=== PATIENT | female | born 1970 | race Caucasian/White ===

== ENCOUNTER → 2017-05-18 13:18 | Outpatient (CLI) | payer BC, OTHER, SELFPAY | PROVIDERS: Family Provider Preventive Medicine Occupational Medicine; PCP Preventive Medicine Occupational Medicine; Visit Provider Internal Medicine Gastroenterology | DX: Z45.2 Encounter for adjustment and management of vascular access device (principal) | CPT/HCPCS: 96523 ==

== ENCOUNTER → 2017-07-29 12:57 | Outpatient (CLI) | payer BC, OTHER, SELFPAY | PROVIDERS: Family Provider Preventive Medicine Occupational Medicine; PCP Preventive Medicine Occupational Medicine; Visit Provider Internal Medicine Gastroenterology | DX: Z45.2 Encounter for adjustment and management of vascular access device (principal) | CPT/HCPCS: 96523 ==

== ENCOUNTER → 2017-12-07 08:18 | Outpatient (CLI) | payer BC, OTHER, SELFPAY | PROVIDERS: Family Provider Preventive Medicine Occupational Medicine; PCP Preventive Medicine Occupational Medicine; Referring Provider Internal Medicine Gastroenterology; Visit Provider Internal Medicine Gastroenterology | DX: Z45.2 Encounter for adjustment and management of vascular access device (principal) | CPT/HCPCS: 96523; A4216 ==

== ENCOUNTER → 2018-01-18 16:09 | Outpatient (CLI) | payer BC, SELFPAY | PROVIDERS: Family Provider Preventive Medicine Occupational Medicine; PCP Preventive Medicine Occupational Medicine; Referring Provider Internal Medicine Gastroenterology; Visit Provider Internal Medicine Gastroenterology | DX: Z45.2 Encounter for adjustment and management of vascular access device (principal) | CPT/HCPCS: 96523; A4216 ==

== ENCOUNTER → 2018-05-21 15:05 | Outpatient (CLI) | payer BC, SELFPAY | PROVIDERS: Family Provider Preventive Medicine Occupational Medicine; PCP Preventive Medicine Occupational Medicine; Visit Provider Internal Medicine Gastroenterology | DX: Z45.2 Encounter for adjustment and management of vascular access device (principal) | CPT/HCPCS: 96523 ==

== ENCOUNTER → 2018-07-15 16:04 | Outpatient (CLI) | payer BC, SELFPAY ==
[2018-07-15 16:35] LABS: Hematocrit 37.5 % (37-47); Hemoglobin 12.3 g/dl (12.0-15.0); Mean Corp Hgb Conc 32.8 g/gl (32-36); Mean Corpuscular Volume 85.4 fL (81-99); Platelet Count 303 K/mm3 (150-450); RBC Distribution Width CV 12.9 % (11.6-14.6); RBC Distribution Width SD 40.8 fl (35.1-43.9); Red Blood Count 4.39 M/mm3 (4.2-5.4); Scan Indicated on CBC? Y/N NO; White Blood Count 14.3 K/mm3 (4.4-11.0)
[2018-07-15 16:37] LABS: Erythrocyte Sedimentation Rate 28 mm/hr (0-20)
[2018-07-15 16:58] LABS: ALB/GLOB Ratio 0.8 RATIO (0.9-2.4); AST(SGOT) 11 U/L (15-37); Alanine Aminotransfer ALT/SGPT 18 U/L (13-56); Albumin, Serum 3.4 g/dL (3.2-5.0); Alkaline Phosphatase 129 U/L (45-117); Anion Gap 5 (5-15); BUN 17 mg/dL (7-18); BUN/Creat Ratio 17.5 RATIO (10-20); Calcium,Total 8.6 mg/dL (8.5-10.1); Chloride 104 mmol/L (98-107); Creatinine, Serum 0.97 mg/dL (0.55-1.02); EST Glomerular Filtration Rate 65 mL/min (>60); Est Glom Filt Rate - Afr Amer 79 mL/min (>60); Glucose 129 mg/dL (74-106); Potassium 3.9 mmol/L (3.5-5.1); Protein, Total 7.4 g/dL (6.4-8.2); Sodium Level 139 mmol/L (136-145)
== END ==
PROVIDERS: Family Provider Preventive Medicine Occupational Medicine; PCP Preventive Medicine Occupational Medicine; Referring Provider Internal Medicine Gastroenterology; Visit Provider Internal Medicine Gastroenterology
DX: K51.90 Ulcerative colitis, unspecified, without complications (principal)
CPT/HCPCS: 36591; 80053; 85027; 85652; 86140; A4216

== ENCOUNTER 2018-07-26 10:30 | Outpatient (RCR) | payer BC, SELFPAY | END 2018-08-06 23:59 | LOC: NS 10:30 | PROVIDERS: Family Provider Preventive Medicine Occupational Medicine; PCP Preventive Medicine Occupational Medicine; Visit Provider Preventive Medicine Occupational Medicine | DX: Z68.31 Body mass index [BMI] 31.0-31.9, adult (principal); E66.9 Obesity, unspecified; Z71.3 Dietary counseling and surveillance | CPT/HCPCS: 97802; 97803 ==

== ENCOUNTER 2018-08-23 10:43 | Outpatient (RCR) | payer BC, SELFPAY | END 2018-09-05 23:59 | LOC: NS 10:43 | PROVIDERS: Family Provider Preventive Medicine Occupational Medicine; PCP Preventive Medicine Occupational Medicine; Visit Provider Preventive Medicine Occupational Medicine | DX: Z68.31 Body mass index [BMI] 31.0-31.9, adult (principal); E66.9 Obesity, unspecified; Z71.3 Dietary counseling and surveillance | CPT/HCPCS: 97803 ==

== ENCOUNTER → 2018-08-24 12:57 | Outpatient (CLI) | payer BC, SELFPAY ==
[2018-08-24 13:26] LABS: Erythrocyte Sedimentation Rate 29 mm/hr (0-20)
[2018-08-24 13:35] LABS: Absolute Lymphocyte Count 3.11 X10^3/ul (0.83-4.51); Absolute Neutrophil Count 5.7 X10^3/uL (2.0-7.7); Basophil# 0.05 X10^3/uL; Basophil% 0.4 % (0-1); Eosinophil# 0.67 X10^3/uL; Hematocrit 39.6 % (37-47); Hemoglobin 12.9 g/dl (12.0-15.0); Lymphocyte # 3.11 X10^3/ul (4.0); Lymphocyte % 27.9 % (19-41); Mean Corp Hgb Conc 32.6 g/gl (32-36); Mean Corpuscular Hgb 27.3 pg (27.0-32.0); Mean Corpuscular Volume 83.7 fL (81-99); Mean Platelet Vol. 9.6 fl (6.2-12.0); Monocyte# 1.53 X10^3/uL; Monocyte% 13.7 % (0-10); Neutrophil # 5.71 X10^3/uL (2.7-7.7); Neutrophil % 51.4 % (47-70); Platelet Count 309 K/mm3 (150-450); Red Blood Count 4.73 M/mm3 (4.2-5.4); White Blood Count 11.1 K/mm3 (4.4-11.0)
[2018-08-24 13:36] LABS: Differential Indicated SCAN CRITERIA MET; POSITIVE COUNT NO; POSITIVE DIFFERENTIAL YES; POSITIVE MORPHOLOGY NO
== END ==
LOC: MEDOUTP 12:58
PROVIDERS: Family Provider Preventive Medicine Occupational Medicine; PCP Preventive Medicine Occupational Medicine; Referring Provider Internal Medicine Gastroenterology; Visit Provider Internal Medicine Gastroenterology
DX: K51.90 Ulcerative colitis, unspecified, without complications (principal)
CPT/HCPCS: 36591; 85025; 85652; A4216

== ENCOUNTER → 2018-10-28 07:50 | Outpatient (CLI) | payer BC, SELFPAY ==
[2018-10-28 09:04] LABS: Absolute Lymphocyte Count 2.17 X10^3/uL (0.83-4.51); Absolute Neutrophil Count 8.7 X10^3/uL (2.0-7.7); Basophil# 0.08 X10^3/uL; Basophil% 0.6 % (0-1); Eosinophil# 0.48 X10^3/uL; Eosinophils% 3.8 % (0-5); Hematocrit 38.5 % (37-47); Hemoglobin 12.3 g/dL (12.0-15.0); Lymphocyte # 2.17 X10^3/ul (4.0); Mean Corp Hgb Conc 31.9 g/dL (32-36); Mean Corpuscular Hgb 28.4 pg (27.0-32.0); Mean Corpuscular Volume 88.9 fL (81-99); Mean Platelet Vol. 9.6 fl (6.2-12.0); Monocyte# 1.22 X10^3/uL; Monocyte% 9.5 % (0-10); NRBC Flagged by Analyzer 0 % (0-5); Neutrophil # 8.71 X10^3/uL (2.7-7.7); Neutrophil % 68.1 % (47-70); Platelet Count 296 K/mm3 (150-450); RBC Distribution Width CV 12.8 % (11.6-14.6); RBC Distribution Width SD 41.5 fl (35.1-43.9); Red Blood Count 4.33 M/mm3 (4.2-5.4); White Blood Count 12.8 K/mm3 (4.4-11.0)
[2018-10-28 09:21] LABS: CRP 3.98 mg/L (0.0-3.0)
== END ==
LOC: MEDOUTP 07:50
PROVIDERS: Family Provider Preventive Medicine Occupational Medicine; PCP Preventive Medicine Occupational Medicine; Referring Provider Internal Medicine Gastroenterology; Visit Provider Internal Medicine Gastroenterology
DX: K51.90 Ulcerative colitis, unspecified, without complications (principal)
CPT/HCPCS: 36591; 85025; 86140; A4216

== ENCOUNTER 2019-01-12 16:54 | Emergency (ER) | payer BC, SELFPAY ==
[2019-01-12 16:55] VITALS: BP 134/85; PULSE 94; RESP 20; TEMP 36.7; O2SAT 100; BMI 33.6
--- NOTE | 2019-01-12 17:12 | EKG12_ITS ---
Test Reason : REPEAT Blood Pressure : / mmHG Vent. Rate : 087 BPM Atrial Rate : 087 BPM P-R Int : 188 ms QRS Dur : 098 ms QT Int : 382 ms P-R-T Axes : 065 045 038 degrees QTc Int : 459 ms Normal sinus rhythm Incomplete right bundle branch block Borderline ECG Confirmed by HEAVEN KANG, RUBEN ([id number]), sound editor MAGNO DURANT ([id number]) on 01/18/2019 2:30:27 PM Referred By: SARA Confirmed By:RUBEN COLLADO MD
[2019-01-12 17:22] LABS: Absolute Lymphocyte Count 3.97 X10^3/uL (0.83-4.51); Absolute Neutrophil Count 5.2 X10^3/uL (2.0-7.7); Basophil# 0.09 X10^3/uL; Basophil% 0.8 % (0-1); Eosinophil# 0.34 X10^3/uL; Eosinophils% 3.1 % (0-5); Hematocrit 37.5 % (37-47); Hemoglobin 11.8 g/dL (12.0-15.0); Lymphocyte # 3.97 X10^3/ul (4.0); Lymphocyte % 36.6 % (19-41); Mean Corp Hgb Conc 31.5 g/dL (32-36); Mean Corpuscular Hgb 27.8 pg (27.0-32.0); Mean Corpuscular Volume 88.4 fL (81-99); Mean Platelet Vol. 9.6 fl (6.2-12.0); Monocyte# 1.15 X10^3/uL; Monocyte% 10.6 % (0-10); NRBC Flagged by Analyzer 0 % (0-5); Neutrophil # 5.22 X10^3/uL (2.7-7.7); Neutrophil % 48.3 % (47-70); Platelet Count 303 K/mm3 (150-450); RBC Distribution Width SD 41.8 fl (35.1-43.9); Red Blood Count 4.24 M/mm3 (4.2-5.4); White Blood Count 10.8 K/mm3 (4.4-11.0)
[2019-01-12] MEDS: 0.9% Normal Saline 1,000 ML 1000 ML IV (17:30)
[2019-01-12] MEDS: Aspirin 81 MG TAB.CHEW 324 MG PO (17:31)
[2019-01-12] MEDS: DiphenhydrAMINE 50 MG/ML Syringe IV (17:32)
[2019-01-12] MEDS: Metoclopramide 10 MG/2 ML Vial IV (17:33)
[2019-01-12 17:35] VITALS: O2SAT 100
[2019-01-12 17:41] LABS: Lipase 73 U/L (73-393)
[2019-01-12 17:43] LABS: Anion Gap 4 (5-15); BUN 19 mg/dL (7-18); BUN/Creat Ratio 23.5 RATIO (10-20); Calcium,Total 9.1 mg/dL (8.5-10.1); Chloride 106 mmol/L (98-107); Creatinine, Serum 0.81 mg/dL (0.55-1.02); EST Glomerular Filtration Rate 80 mL/min (>60); Est Glom Filt Rate - Afr Amer 97 mL/min (>60); Estimated Creatinine Clearance 79.51 ml/min; Glucose 101 mg/dL (74-106); Potassium 3.7 mmol/L (3.5-5.1); Sodium Level 141 mmol/L (136-145)
--- NOTE | 2019-01-12 17:44 | RAD_ITS ---
STUDY: X-RAY CHEST REASON FOR EXAM: Female, 48 years old. Chest pain. TECHNIQUE: PA and lateral chest. COMPARISON: None. FINDINGS: [id number] terminates in the superior vena cava. The lungs are clear and expanded. There is no demonstrated pleural abnormality. Normal size heart. Normal mediastinum and john. Normal visualized pulmonary arteries. Normal visualized aortic arch and descending thoracic aorta. Normal visualized thoracic spine. Normal visualized ribs, clavicles, and shoulders. There is no demonstrated abnormality of the visualized soft tissue structures of the upper abdomen. RAD/Chest PA and Lateral IMPRESSION: Normal x-ray examination of the chest. Electronically Signed: Cammie Herr MD at 18:16 EST Tel , Service support ,
[2019-01-12 17:53] LABS: AST(SGOT) 18 U/L (15-37); Alanine Aminotransfer ALT/SGPT 18 U/L (13-56); Albumin, Serum 3.4 g/dL (3.2-5.0); Alkaline Phosphatase 124 U/L (45-117); Bilirubin, Direct 0.06 mg/dL (0.00-0.30); Globulin 4.3 g/dL (2.2-4.2); Protein, Total 7.7 g/dL (6.4-8.2)
[2019-01-12] MEDS: Morphine 4 MG/ML Syringe IV ×2 (18:16→22:04)
--- NOTE | 2019-01-12 18:43 | ED.DCSUM_ITS ---
History of Present Illness Informant: Patient Onset: Today Activity at onset: Light Activity, Rest Timing: Continuous Quality: Sharp Location: Substernal Current Severity: Moderate Maximum Severity: Severe Worsened By: Movement of Arm, Movement of Torso. Not Worsened By: Exertion Relieved By: Rest Associated Symptoms: - - headache. Negative for: Nausea, Vomiting, Diaphoresis, Dyspnea, Cough, Fever, Lightheadedness, Acid Reflux, Palpitations Narrative: 48-year-old female with a past medical history of ulcerative colitis and hypertension presents to the emergency department with chest pain. It started when she woke up this morning. It is substernal and. Sharp and stabbing. It is been constant. It is not exertional it is only worse with movement of her arms and torso or with walking. She has not been lightheaded or dizzy. No diaphoresis or nausea or vomiting. She has not been short of breath. No cough or hemoptysis. No abdominal pain vomiting or diarrhea. No recent travel or surgery, leg pain or swelling, hemoptysis or history of DVT or PE. Prior Similar Symptoms: No Recent Illness/Hospitalization: No CVD Risk Factors: Hypertension. Negative for: Diabetes, Hypercholesterolemia, Family History 1' </=55, Smoking PE Risk Factors: Negative for: Recent Travel/Surgery, Recenet Immobilization, Prior DVT or PE, Cancer <Twan Roman - Last Filed: 01/12/19 18:43> <Nivia Morales - Last Filed: 01/12/19 23:08> Chief Complaint: Chest Pain Past Medical History Prior records reviewed: Yes Past Medical History: - - HTN, ulcerative colitis Surgical History: cholecystectomy, - - C section, retreival of a kidney stone that did not pass Smoking Status: Never smoker - Family History Maternal Family History: Reports: - - Her mother had rheumatoid arthritis and also breast cancer and squamous cell lung cancer. Paternal Family History: Reports: - - Father had history of colitis <Twan Roman - Last Filed: 01/12/19 18:43> <Nivia Morales - Last Filed: 01/12/19 23:08> - Allergies and Home Meds Allergies/Adverse Reactions: Allergies erythromycin base [Erythromycin Base] Allergy (Severe, Verified 01/12/19 16:59) N/V/D CANT BREAATHE STATES LOSES BLADDER AND BOWEL CONTROL, CAUSES N/V/D Penicillins Allergy (Verified 01/12/19 16:59) Vomiting ondansetron HCl [From Zofran (as hydrochloride)] Adverse Reaction (Mild, Verified 01/12/19 16:59) GUDINO acetaminophen [From Percocet] Adverse Reaction (Verified 01/12/19 16:59) Nausea oxycodone HCl [From Percocet] Adverse Reaction (Verified 01/12/19 16:59) Nausea Primary Care Physician: Emmanuel Eagle DO [Primary Care Provider] - Review of Systems All systems negative except as indicated General: Denies: Chills, Fever Eyes: Denies: Visual changes - bilaterally, Diplopia ENT: Denies: Bilateral ear pain, Sore throat Cardiovascular: Reports: Chest pain. Denies: Palpitations, Heart racing Respiratory: Denies: Dyspnea, Cough, Sputum, Dyspnea on exertion Gastrointestinal: Denies: Abdominal pain, Nausea, Vomiting, Diarrhea Genitourinary: Denies: Dysuria, Hematuria Musculoskeletal: Reports: Back pain. Denies: Myalgias, Arthralgias, Neck pain Neurological: Reports: Headache. Denies: Weakness, Parasthesia, Numbness Hematologic: Denies: Easy bruising, Easy bleeding <Twan Roman - Last Filed: 01/12/19 18:43> Physical Exam Vital Signs/Narrative: Vital Signs Temp Pulse Resp BP Pulse Ox 01/12/19 17:35 100 01/12/19 16:55 98.1 F 94 20 H 134/85 H 100 Inital Vital Signs reviewed: Yes General: Well nourished, Well developed, No Acute Distress Head: Normocephalic, Atraumatic Eyes: Perrl, EOMI ENT: Moist mucous membranes Neck: Supple, Nontender, No lymphadenopathy, No JVD Cardiovascular: Regular rate, Regular rhythm, No murmurs Respiratory: No distress, CTA bilaterally, Chest nontender Abdomen: Soft, Nontender, Nondistended, Normal bowel sounds, No masses Back: Nontender, Normal Inspection Extremities: Nontender, No edema Skin: Normal color, No rash Neurological: Alert, Oriented x3, Normal Strength, Normal Sensation Psychological: Normal affect <Twan Roman - Last Filed: 01/12/19 18:43> Vital Signs/Narrative: Vital Signs Pulse Resp BP Pulse Ox 01/12/19 21:07 88 15 116/82 H 93 01/12/19 19:12 88 16 121/79 H 99 <Nivia Morales - Last Filed: 01/12/19 23:08> Diagnostic/Tx/Re-eval Chest X-Ray - ED: 2 View, Read by ED Physician, Read by Radiologist, No Acute Disease - Rhythm Strip Rhythm Strip: Sinus Rhythm Rate: 88 Ectopy: None - EKG Initial EKG Interpretation: Sinus Rhythm, No Acute Injury Pattern Prior: No Prior Treatment: Aspirin Repeat Eval: Pain Free <Twan Roman - Last Filed: 01/12/19 18:43> - Medical Decision Making 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 I independently evaluated and examined the patient. CBC, chemistries unremarkable. Troponin is negative. Delta troponin is also negative. Chest x-ray shows no acute process. CT head shows no acute process. On reevaluation, patient is feeling improved. She is advised to follow-up with her primary care physician and GI physician. Advised return to ED for worsening complaints. <Nivia Morales - Last Filed: 01/12/19 23:08> ED Disposition <Twan Roman - Last Filed: 01/12/19 18:43> <Nivia Morales - Last Filed: 01/12/19 23:08> - Plan for ED Patient: Instructions: CHEST PAIN, Uncertain Cause Referrals: Emmanuel Eagle DO [Primary Care Provider] -
--- NOTE | 2019-01-12 19:00 | EKG12_ITS ---
Test Reason : CP Blood Pressure : / mmHG Vent. Rate : 093 BPM Atrial Rate : 093 BPM P-R Int : 172 ms QRS Dur : 098 ms QT Int : 354 ms P-R-T Axes : 071 036 054 degrees QTc Int : 440 ms Normal sinus rhythm Normal ECG Confirmed by HEAVEN KANG, RUBEN ([id number]), multimedia editor MAGNO DURANT ([id number]) on 01/18/2019 2:30:42 PM Referred By: HUMAIRA Confirmed By:RUBEN COLLADO MD
[2019-01-12 19:12] VITALS: BP 121/79; PULSE 88; RESP 16; O2SAT 99
[2019-01-12] MEDS: Mag Hydrox/Al Hydrox/Simeth 30 ML UDC PO (19:16)
[2019-01-12 21:07] VITALS: BP 116/82; PULSE 88; RESP 15; O2SAT 93
--- NOTE | 2019-01-12 21:53 | CT_ITS ---
STUDY: CT BRAIN WITHOUT CONTRAST REASON FOR EXAM: Female, 48 years old. Headache. RADIATION DOSAGE (If Supplied By Facility): CTDIvol = ( 44.99 ) mGy, DLP = ( 812.98 ) mGycm TECHNIQUE: Transaxial CT imaging of the brain was performed without administration of intravenous contrast material. Individualized dose optimization techniques were used for this CT. COMPARISON: No relevant priors. FINDINGS: Normal soft tissue structures. Normal calvarium. Normal size ventricles and extra-axial spaces for the patient's age. Normal white matter tracts of the cerebral hemispheres. Normal basal ganglia and thalami. Normal brainstem. Normal cerebellum. There is no intracranial hemorrhage. There are no findings of an acute ischemic infarction. Normal visualized paranasal sinuses. CT/Brain/Head without Contrast IMPRESSION: Normal unenhanced CT scan of the brain. Electronically Signed: Cammie Herr MD at 22:31 EST Tel , Service support ,
[2019-01-12] MEDS: proMETHazine 25 MG/ML Syringe 6.25 MG IV (22:02)
--- NOTE | 2019-01-12 23:04 | ED.DEP ---
ED Disposition - Plan for ED Patient: Instructions: CHEST PAIN, Uncertain Cause Referrals: Emmanuel Eagle DO [Primary Care Provider] -
[2019-01-12 23:08] VITALS: BP 119/68; PULSE 96; RESP 16; O2SAT 93
== END 2019-01-12 23:23 | disposition home or self-care (01) ==
LOC: ED 17:21
PROVIDERS: Emergency Provider Physician Assistant Medical; Family Provider Preventive Medicine Occupational Medicine; PCP Preventive Medicine Occupational Medicine
DX: R07.9 Chest pain, unspecified (principal); I10 Essential (primary) hypertension; K51.90 Ulcerative colitis, unspecified, without complications; Z79.899 Other long term (current) drug therapy
CPT/HCPCS: 36591; 70450; 71046; 80048; 80076; 83690; 84484; 85025; 93005; 96361; 96374; 96375; 99285; J7030; A4216

== ENCOUNTER → 2019-03-03 16:39 | Outpatient (CLI) | payer BC, SELFPAY ==
[2019-03-03 17:27] LABS: Hematocrit 39.2 % (37-47); Hemoglobin 12.5 g/dL (12.0-15.0); Mean Corp Hgb Conc 31.9 g/dL (32-36); Mean Corpuscular Hgb 26.8 pg (27.0-32.0); Mean Corpuscular Volume 84.1 fL (81-99); Mean Platelet Vol. 10.2 fl (6.2-12.0); Platelet Count 322 K/mm3 (150-450); RBC Distribution Width CV 12.3 % (11.6-14.6); RBC Distribution Width SD 37.3 fl (35.1-43.9); Red Blood Count 4.66 M/mm3 (4.2-5.4)
[2019-03-03 18:41] LABS: Anion Gap 6 (5-15); BUN 15 mg/dL (7-18); BUN/Creat Ratio 18.3 RATIO (10-20); Calcium,Total 9.4 mg/dL (8.5-10.1); Chloride 108 mmol/L (98-107); Creatinine, Serum 0.82 mg/dL (0.55-1.02); EST Glomerular Filtration Rate 79 mL/min (>60); Est Glom Filt Rate - Afr Amer 95 mL/min (>60); Glucose 141 mg/dL (74-106); Potassium 3.7 mmol/L (3.5-5.1); Sodium Level 143 mmol/L (136-145); Thyroid Stim Hormone (TSH) 1.93 uIU/mL (0.358-3.74)
== END ==
PROVIDERS: Family Provider Preventive Medicine Occupational Medicine; PCP Preventive Medicine Occupational Medicine; Referring Provider Preventive Medicine Occupational Medicine; Visit Provider Preventive Medicine Occupational Medicine
DX: R10.9 Unspecified abdominal pain (principal); G89.29 Other chronic pain; R63.5 Abnormal weight gain; D64.9 Anemia, unspecified
CPT/HCPCS: 36591; 80048; 84443; 85027; A4216

== ENCOUNTER 2019-12-03 13:56 | Emergency (ER) | payer BC, SELFPAY ==
[2019-05-25 14:14] VITALS: BMI 33.6
[2019-12-03 13:58] VITALS: BP 114/82; PULSE 108; RESP 18; TEMP 36.6; O2SAT 98; BMI 32.5
--- NOTE | 2019-12-03 14:32 | ED.VIS.GEN ---
History of Present Illness <EdgardoDakota - Last Filed: 12/03/19 14:53> Informant: Patient, Family Onset: Yesterday Context: Gradual Onset Timing: Continuous Quality: sharp Location: left ear Current Severity: Severe Maximum Severity: Severe Worsened by: movement Relieved by: nothing Associated Symptoms: dental pain Narrative: 49-year-old female history of Crohn's disease presents with left ear pain. Patient has been dealing with this left ear pain for several weeks. Initially her primary care physician had diagnosed her with otitis externa started her on Cortisporin otic. Symptoms improved but did not resolve and because she is on a medication for her Crohn's disease that makes her more prone to develop fungal infections her primary care physician wrote her prescription for topical clotrimazole and she was applying it to her left ear with a Q-tip for the last 10 days. Since that time she has had progressively worsening symptoms. Patient has not had a fever she has not had any decreased hearing she does not have a headache or neck pain and is not lightheaded or dizzy. She is on oral clindamycin at this time secondary to dental infection. Rest of review of systems at this time are negative Prior similar symptoms: Yes Recent Illness/Hospitalization: No <Twan Roman - Last Filed: 12/03/19 15:42> Chief Complaint: Ear Problem Past Medical History <Dakota Reynoso - Last Filed: 12/03/19 14:53> Prior records reviewed: Yes Past Medical History: - - Hypertension Crohn's disease chronic pain Surgical History: cholecystectomy, - - C section, retreival of a kidney stone that did not pass Smoking Status: Never smoker - Family History Maternal Family History: Reports: - - Her mother had rheumatoid arthritis and also breast cancer and squamous cell lung cancer. Paternal Family History: Reports: - - Father had history of colitis <Twan Roman - Last Filed: 12/03/19 15:42> - Allergies and Home Meds Allergies/Adverse Reactions: Allergies erythromycin base [Erythromycin Base] Allergy (Severe, Verified 12/03/19 14:00) N/V/D CANT BREAATHE STATES LOSES BLADDER AND BOWEL CONTROL, CAUSES N/V/D Penicillins Allergy (Verified 12/03/19 14:00) Vomiting ondansetron HCl [From Zofran (as hydrochloride)] Adverse Reaction (Mild, Verified 12/03/19 14:00) GUDINO acetaminophen [From Percocet] Adverse Reaction (Verified 12/03/19 14:00) Nausea oxycodone HCl [From Percocet] Adverse Reaction (Verified 12/03/19 14:00) Nausea Primary Care Physician: Emmanuel Eagle DO [Primary Care Provider] - Review of Systems All systems negative except as indicated General: Denies: Chills, Fever, Sweats Eyes: Denies: Visual changes - bilaterally, Diplopia ENT: Reports: Left ear pain. Denies: Rhinorrhea, Sore throat Cardiovascular: Denies: Chest pain, Palpitations Respiratory: Denies: Dyspnea, Cough, Dyspnea on exertion Gastrointestinal: Denies: Abdominal pain, Nausea, Vomiting, Diarrhea, Melena, Hematochezia Genitourinary: Denies: Dysuria, Hematuria, Frequency Musculoskeletal: Denies: Back pain, Extremity Pain Skin: Denies: Rash, Wounds Neurological: Denies: Headache, Weakness, Numbness <Twan Roman - Last Filed: 12/03/19 15:42> Physical Exam Vital Signs/Narrative: Vital Signs Temp Pulse Resp BP Pulse Ox 12/03/19 13:58 97.9 F 108 H 18 114/82 H 98 <Dakota Reynoso - Last Filed: 12/03/19 14:53> Vital Signs/Narrative: Vital Signs Temp Pulse Resp BP Pulse Ox 12/03/19 13:58 97.9 F 108 H 18 114/82 H 98 Inital Vital Signs reviewed: Yes General: Well nourished, Well developed, No Acute Distress Head: Normocephalic, Atraumatic Eyes: Perrl, EOMI ENT: Moist mucous membranes, No rhinorrhea, - - Patient has normal external ear canal right ear normal tympanic membrane and no pain with movement of tragus right ear. Patient has significant pain with movement of left tragus significant swelling of her external canal of the left ear unable to visualize tympanic membrane secondary to swelling. Neck: Supple, Nontender Cardiovascular: Regular rate, Regular rhythm, No murmurs Respiratory: No distress, CTA bilaterally, Chest nontender Abdomen: Soft, Nontender, Nondistended, Normal bowel sounds Back: Nontender, Normal Inspection Extremities: Nontender, No edema Skin: Normal color, No rash Neurological: Alert, Oriented x3, Cranial nerves II-XII grossly intact, Normal Strength, Normal Sensation Psychological: Normal affect, Normal Mood <Twan Roman - Last Filed: 12/03/19 15:42> Diagnostic/Tx/Re-eval - Medical Decision Making I supervised the PA and have performed my own pertinent history and physical. Results and treatment plan were discussed. HPI: Patient reports that she is had left ear pain for a few weeks. She saw her primary care physician was placed on Cortisporin otic with improvement, but not resolution of the symptoms. Then placed her on Chlortrimazole which she has been using and things have been getting worse. She complains of pain is 10 of 10 in severity. She denies any fever or chills. No headache. PE: Vitals: Stable. Afebrile. General: Well-nourished and well-developed. Head: Normocephalic atraumatic. HEENT: Left external auditory canal is swollen with exudate present. I am unable to visualize her TM. She has pain with movement of her tragus and her pinna. No displacement of her pinna. No tenderness over her mastoid. Right external auditory canal is normal. Right TM is normal. Neck: Supple, no lymphadenopathy. No JVD. Nontender. Cardiovascular: Regular rate and rhythm. No murmurs. Respiratory: No respiratory distress. Clear to auscultation bilaterally. Abdominal: Soft, nontender, nondistended, normal bowel sounds. No guarding, rebound, or peritoneal signs. Back: Nontender. Extremities: Nontender, no edema. Skin: Normal color, no rash. Neurologic: Alert and oriented ?3. Cranial nerves II through XII are intact. Normal strength and sensation. Psych: Normal affect. Emergency Department course: Patient was given Percocet and had a wick placed. Treatment Plan: Patient will be discharged with Ciprodex. She is on pain management and instructed to continue those medications. Follow-up with Dr. Xander Mooney in 1 week for another exam. This note was generated with [employer] dictation software. It may contain incorrect words, spelling, and punctuation that were not noted in review of the chart prior to signing. <Dakota Reynoso - Last Filed: 12/03/19 14:53> ED Disposition <Dakota Reynoso - Last Filed: 12/03/19 14:53> <Twan Roman - Last Filed: 12/03/19 15:42> - Plan for ED Patient: Disposition: Home or Assisted Living Diagnosis: Otitis externa, Ulcerative colitis Instructions: ED Otitis Externa Prescriptions: Ciprofloxacin HCl/Dexameth [Ciprodex Otic Suspension] 4 drp OTIC (EAR) BID #1 bottle Transmission Status: Pending to [address] Referrals: Emmanuel Eagle DO [Primary Care Provider] - Xander Chaney MD [STAFF PHYSICIAN] - As soon as possible
[2019-12-03] MEDS: oxyCODONE 5 MG Tablet PO (15:46)
== END 2019-12-03 16:43 | disposition home or self-care (01) ==
PROVIDERS: Emergency Provider Physician Assistant Medical; PCP Preventive Medicine Occupational Medicine
DX: H60.92 Unspecified otitis externa, left ear (principal); K50.90 Crohn's disease, unspecified, without complications
CPT/HCPCS: 99283

== ENCOUNTER → 2020-02-16 09:01 | Outpatient (REF) | payer BC, SELFPAY | LOC: LABSPEC 09:01 | PROVIDERS: PCP Preventive Medicine Occupational Medicine; Referring Provider Family Medicine; Visit Provider Family Medicine | DX: Z03.818 Encounter for observation for suspected exposure to other biological agents ruled out (principal) | CPT/HCPCS: 87635; U0003 ==

== ENCOUNTER → 2020-03-07 11:17 | Outpatient (REF) | payer BC, SELFPAY | LOC: LABSPEC 11:17 | PROVIDERS: PCP Preventive Medicine Occupational Medicine; Referring Provider Family Medicine; Visit Provider Family Medicine | DX: Z03.818 Encounter for observation for suspected exposure to other biological agents ruled out (principal) | CPT/HCPCS: 87635; U0003 ==

== ENCOUNTER 2020-03-22 16:36 | Observation (INO) | payer BC, SELFPAY ==
[2020-03-22] VITALS (11 sets, daily range): BP systolic 94–121; BP diastolic 59–74; PULSE 70–100; RESP 15–18; TEMP 36.6–37; O2SAT 94–100; BMI 34.5; BMI 32.8; BMI 95.1
--- NOTE | 2020-03-22 17:17 | EKG12_ITS ---
Test Reason : CP Blood Pressure : / mmHG Vent. Rate : 088 BPM Atrial Rate : 088 BPM P-R Int : 194 ms QRS Dur : 102 ms QT Int : 372 ms P-R-T Axes : 067 056 037 degrees QTc Int : 450 ms Normal sinus rhythm Normal ECG Confirmed by RUBEN COLLADO MD ([id number]), telegraph editor GILBERT GALLEGOS ([id number] on 03/28/2020 6:20:13 AM Referred By: JESSICA Confirmed By:RUBEN COLLADO MD
--- NOTE | 2020-03-22 17:26 | CT_ITS ---
STUDY: CT ABDOMEN AND PELVIS WITH CONTRAST REASON FOR EXAM: Female, 50 years old. DIFFUSE ABD PAIN. H/O ULCERATIVE COLITIS.,KIDNEY STONES -- SURGERY:CHOLECYSTECTOMY,HYSTERECTOMY RADIATION DOSAGE (If Supplied By Facility): CTDIvol = ( 17.99 ) mGy, DLP = ( 971.13 ) mGycm TECHNIQUE: Transaxial images were obtained from the dome of the diaphragm to the symphysis pubis without oral contrast. IV 100ML ISOVUE 300 was administered. Sagittal and coronal images were reconstructed. Individualized dose optimization techniques were used for this CT. COMPARISON: CT abdomen and pelvis on 12/12/2016. FINDINGS: The visualized lung bases are unremarkable. Central line noted in the superior vena cava. Normal liver. Gallbladder surgically absent. Normal spleen. Normal pancreas. Normal bilateral adrenal glands. Small bilateral renal cysts too small to characterize. Normal visualized stomach. Normal small intestine. Normal colon. The appendix is visualized and appears normal. Normal abdominal aorta. Normal inferior vena cava. Normal retroperitoneum. Normal urinary bladder. There is a small umbilical hernia containing fat. Normal osseous structures. CT/Abdomen/Pelvis W IV Cont ONLY IMPRESSION: No acute disease. small stable bilateral renal cysts. Electronically Signed: Xander Edwards MD at 19:12 EST , Service support ,
--- NOTE | 2020-03-22 17:27 | ED.DCSUM_ITS ---
History of Present Illness Chief Complaint: Chest Pain Informant: Patient, EMS Onset: Hours - 1-2 Activity at onset: Rest - sitting Timing: Continuous Quality: Tightness Location: Substernal, - - along w/ prickly feeling in left arm Current Severity: Mild Maximum Severity: Severe Worsened By: Nothing Relieved By: NTG, NSAIDS - asa 324 given by EMS Associated Symptoms: Nausea, Dyspnea. Negative for: Vomiting, Diaphoresis, Cough, Fever, Lightheadedness, Palpitations Narrative: Patient started having left upper extremity discomfort followed by chest tightness, lasting an hour or 2, almost completely gone now but as it started improving, she started getting diffuse abdominal aching/cramping that has been persistent along with nausea. Has never had any of this before. No known history of heart problems. Not a smoker. 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 She has history of ulcerative colitis, states that with the medication she takes daily it is well controlled, has had no bright red blood per rectum or mucus or tenesmus completely, and states this pain does not feel like her ulcerative colitis at all. - Past Medical History (1) Ulcerative colitis Status: Chronic (2) Fibromyalgia Status: Chronic (3) MVP (mitral valve prolapse) Status: Chronic (4) Nephrolithiasis Status: Chronic (5) Rheumatoid arthritis Status: Chronic Past Medical History - Allergies and Home Meds Allergies/Adverse Reactions: Allergies erythromycin base [Erythromycin Base] Allergy (Severe, Verified 03/22/20 16:43) N/V/D CANT BREAATHE STATES LOSES BLADDER AND BOWEL CONTROL, CAUSES N/V/D Penicillins Allergy (Verified 03/22/20 16:43) Vomiting ondansetron HCl [From Zofran (as hydrochloride)] Adverse Reaction (Mild, Verified 03/22/20 16:43) Primary Care Physician: Emmanuel Eagle DO [Primary Care Provider] - Surgical History: cholecystectomy, hysterectomy, - - C section, retreival of a kidney stone that did not pass Smoking Status: Never smoker Drugs: None - Family History Maternal Family History: Reports: - - Her mother had rheumatoid arthritis and also breast cancer and squamous cell lung cancer. Paternal Family History: Reports: - - Father had history of colitis Review of Systems All systems negative except as indicated General: Denies: Chills, Fever, Sweats Eyes: Denies: Visual changes - bilaterally, Diplopia ENT: Denies: Rhinorrhea, Sore throat Cardiovascular: Reports: Chest pain. Denies: Palpitations Respiratory: Denies: Dyspnea, Cough, Dyspnea on exertion Gastrointestinal: Reports: Abdominal pain, Nausea. Denies: Vomiting, Diarrhea, Melena, Hematochezia Genitourinary: Denies: Dysuria, Hematuria, Frequency Musculoskeletal: Reports: Swelling - Mild swelling both legs for about the past month, Extremity Pain. Denies: Myalgias, Back pain Skin: Denies: Rash, Wounds Neurological: Reports: Parasthesia. Denies: Headache, Weakness Physical Exam Vital Signs/Narrative: Vital Signs Temp Pulse Resp BP Pulse Ox 03/22/20 16:37 98.5 F 100 15 112/72 98 Inital Vital Signs reviewed: Yes General: Well nourished, Well developed, No Acute Distress Head: Normocephalic, Atraumatic Eyes: Perrl, EOMI ENT: Moist mucous membranes, No rhinorrhea Neck: Supple, Nontender Cardiovascular: Regular rate, Regular rhythm, No murmurs Respiratory: No distress, CTA bilaterally, Chest nontender Abdomen: Soft, Nondistended, Normal bowel sounds, No masses, Tender - Diffuse, nonfocal, Guarding - Voluntary in multiple areas.. Negative for: Rebound tenderness, Pulsatile mass Back: Nontender, Normal Inspection. Negative for: CVA tenderness Extremities: Nontender, No edema. Negative for: Calf Tenderness Skin: Normal color, No rash, No Trauma Neurological: Alert, Oriented x3, Cranial nerves II-XII grossly intact, Normal Strength, Normal Sensation Psychological: Normal affect, Normal Mood Diagnostic/Tx/Re-eval Chest X-Ray - ED: 1 View, Read by ED Physician, Normal, Heart, Lungs, No Acute Disease, No Infiltrates Impressions Abdomen/Pelvis CT 03/22/20 17:26 IMPRESSION: No acute disease. small stable bilateral renal cysts. Electronically Signed: Xander Edwards MD at 19:12 EST , Service support , Chest X-Ray 03/22/20 17:50 IMPRESSION: No acute disease Electronically Signed: Xander Edwards MD at 18:24 EST , Service support , 03/22/20 17:26 CT Abd [Abdomen/Pelvis W IV Cont ONLY] [CT] Stat 03/22/20 17:50 Chest 1 View (Portable) [RAD] Stat Laboratory Results 03/22/20 03/22/20 17:40 17:40 WBC 8.3 RBC 4.48 Hgb 12.2 Hct 38.6 MCV 86.2 MCH 27.2 MCHC 31.6 L RDW Std Deviation 38.2 RDW Coeff of Donya 12.0 Plt Count 310 MPV 9.9 Immature Gran % (Auto) 0.400 Neut % (Auto) 57.7 Lymph % (Auto) 29.1 Taylor % (Auto) 10.2 H Eos % (Auto) 2.0 Baso % (Auto) 0.6 Absolute Neuts (auto) 4.8 Absolute Lymphs (auto) 2.42 Nucleated RBC % 0 Sodium 141 Potassium 3.5 Chloride 106 Carbon Dioxide 30.0 Anion Gap 5 BUN 10 Creatinine 0.74 Estim Creat Clear Calc 88.45 Est GFR (MDRD) Af Amer 107 Est GFR (MDRD) Non-Af 88 BUN/Creatinine Ratio 13.5 Glucose 108 H Calcium 9.0 Total Bilirubin 0.20 AST 11 L ALT 18 Alkaline Phosphatase 127 H Troponin I < 0.015 Total Protein 7.4 Albumin 3.4 Globulin 4.0 Albumin/Globulin Ratio 0.8 L Lipase 87 - Rhythm Strip Rhythm Strip: Sinus Rhythm Rate: 88 Ectopy: None - EKG Initial EKG Interpretation: Sinus Rhythm, No Acute Injury Pattern, - - RSR' Treatment: Aspirin - Given by EMS prior to arrival, NTG SL - Given by EMS prior to arrival Repeat Eval: Pain Free RERE Risk: No Positive RERE Elements Score: 0 - Medical Decision Making Patient has low risk for acute cardiac disease, however her symptoms were very concerning. Certainly could be esophageal in etiology, which is difficult to rule out. Her heart score is 3, 2 for history, 1 for age, 0 for the rest. She was given the option for a delta troponin, but she prefers to be admitted to get the stress test now rather than as an outpatient, discussed with hospitalist for inpatient observation and further monitoring. ED Disposition - Plan for ED Patient: Disposition: Acute Care Hospital [facility] Diagnosis: Chest pain, unspecified, Diffuse abdominal pain Referrals: Emmnauel Eagle DO [Primary Care Provider] -
[2020-03-22] MEDS: Metoclopramide 10 MG/2 ML Vial 5 MG IV (17:39)
[2020-03-22] MEDS: Morphine 4 MG/ML Syringe IV (17:39)
[2020-03-22] MEDS: 0.9% Normal Saline 1,000 ML 1000 ML IV (17:39)
--- NOTE | 2020-03-22 17:50 | RAD_ITS ---
STUDY: X-RAY CHEST REASON FOR EXAM: Female, 50 years old. chest pain, tingling sensation in left arm TECHNIQUE: Single frontal view of the chest. COMPARISON: 01/12/2019 chest x-ray. FINDINGS: Left IJ MediPort terminates in the right atrium unchanged in position. The lungs are clear and expanded. There is no demonstrated pleural abnormality. Normal size heart. Normal mediastinum and john. Normal visualized pulmonary arteries. Normal visualized aortic arch and descending thoracic aorta. Normal visualized thoracic spine. Normal visualized ribs, clavicles, and shoulders. There is no demonstrated abnormality of the visualized soft tissue structures of the upper abdomen. RAD/Chest 1 View (Portable) IMPRESSION: No acute disease Electronically Signed: Xander Edwards MD at 18:24 EST , Service support ,
[2020-03-22 18:01] LABS: Absolute Lymphocyte Count 2.42 X10^3/uL (0.83-4.51); Absolute Neutrophil Count 4.8 X10^3/uL (2.0-7.7); Basophil# 0.05 X10^3/uL; Basophil% 0.6 % (0-1); Eosinophil# 0.17 X10^3/uL; Hematocrit 38.6 % (37-47); Hemoglobin 12.2 g/dL (12.0-15.0); Lymphocyte # 2.42 X10^3/ul (4.0); Lymphocyte % 29.1 % (19-41); Mean Corp Hgb Conc 31.6 g/dL (32-36); Mean Corpuscular Hgb 27.2 pg (27.0-32.0); Mean Corpuscular Volume 86.2 fL (81-99); Mean Platelet Vol. 9.9 fl (6.2-12.0); Monocyte# 0.85 X10^3/uL; Monocyte% 10.2 % (0-10); NRBC Flagged by Analyzer 0 % (0-5); Neutrophil % 57.7 % (47-70); Platelet Count 310 K/mm3 (150-450); RBC Distribution Width SD 38.2 fl (35.1-43.9); Red Blood Count 4.48 M/mm3 (4.2-5.4); White Blood Count 8.3 K/mm3 (4.4-11.0)
[2020-03-22 18:19] LABS: ALB/GLOB Ratio 0.8 RATIO (0.9-2.4); AST(SGOT) 11 U/L (15-37); Alanine Aminotransfer ALT/SGPT 18 U/L (13-56); Albumin, Serum 3.4 g/dL (3.2-5.0); Alkaline Phosphatase 127 U/L (45-117); Anion Gap 5 (5-15); BUN 10 mg/dL (7-18); BUN/Creat Ratio 13.5 RATIO (10-20); Chloride 106 mmol/L (98-107); Creatinine, Serum 0.74 mg/dL (0.55-1.02); EST Glomerular Filtration Rate 88 mL/min (>60); Est Glom Filt Rate - Afr Amer 107 mL/min (>60); Estimated Creatinine Clearance 88.45 ml/min; Glucose 108 mg/dL (74-106); Lipase 87 U/L (73-393); Potassium 3.5 mmol/L (3.5-5.1); Protein, Total 7.4 g/dL (6.4-8.2); Sodium Level 141 mmol/L (136-145)
--- NOTE | 2020-03-22 19:58 | PCM.HP.STD ---
Problem List (1) Ulcerative colitis Status: Chronic (2) Chest pain, unspecified Status: Acute (3) Diffuse abdominal pain Status: Acute (4) Hordeolum externum of right lower eyelid Status: Chronic (5) MVP (mitral valve prolapse) Status: Chronic (6) Crohn disease Status: Chronic (7) Nephrolithiasis Status: Chronic (8) Fibromyalgia Status: Chronic (9) Rheumatoid arthritis Status: Chronic History of Present Illness Date of Admission: 03/22/20 Chief Complaint: Chest pain The patient is a 50 year old F with a significant history of anxiety disorder; fibromyalgia; ulcerative colitis and arthritis who presents to the emergency department with progressively worsening substernal cramping chest pain. The pain radiated to her left shoulder and to her left arm. Associated with symptoms is nausea without vomiting. She denied diaphoresis. Her symptoms started while she was sitting and reading. Sitting helps improve her pain and exertion worsens her pain. She was given aspirin and nitroglycerin by the paramedics. Aspirin and nitroglycerin helped with her pain. However after administration of the above regimen she began to have cramping abdominal pain that moved up towards her rib cage. She reported at baseline her blood pressure is 90/60. However she was concerned that with onset of chest pain her blood pressure was 146/87 and her pulse was 120. Initial troponin was negative. A delta troponin was offered to patient with intent to discharge from the ED if negative. However patient opted to stay for a stress test and this was considered reasonable. Past Medical History Past Medical History (Chronic Problems): Chronic Problems (Last Reviewed 05/25/19 @ 14:14 by Balbir Siu) Ulcerative colitis (Chronic) Hordeolum externum of right lower eyelid (Chronic) MVP (mitral valve prolapse) (Chronic) Crohn disease (Chronic) Nephrolithiasis (Chronic) Fibromyalgia (Chronic) Rheumatoid arthritis (Chronic) Medical History: Medical History (Last Reviewed 05/25/19 @ 14:14 by Balbir Siu) Arthritis M19.90 Allergies erythromycin base [Erythromycin Base] Allergy (Severe, Verified 03/22/20 16:43) N/V/D CANT BREAATHE STATES LOSES BLADDER AND BOWEL CONTROL, CAUSES N/V/D Penicillins Allergy (Verified 03/22/20 16:43) Vomiting ondansetron HCl [From Zofran (as hydrochloride)] Adverse Reaction (Mild, Verified 03/22/20 16:43) GUDINO Home Medications: Ambulatory Orders Medication Instructions Recorded Citalopram [Celexa] 40 mg PO DAILY 03/22/20 Dicyclomine HCl 10 mg PO TID PRN 03/22/20 Estradiol 0.5 mg PO DAILY 03/22/20 Lorazepam [Ativan] 0.5 mg PO TID PRN PRN 03/22/20 Metoprolol Succinate [Toprol Xl] 25 mg PO DAILY 03/22/20 Multivitamin 1 tab PO DAILY 03/22/20 Promethazine HCl 25 mg PO Q6H PRN PRN 03/22/20 traMADol [Ultram (G)] 50 mg PO Q6H PRN PRN 03/22/20 Surgical History: cholecystectomy, hysterectomy, - - C section, retreival of a kidney stone that did not pass Psychiatric History: Anxiety - take Ativan PRN Smoking Status: Never smoker Drugs: None - *Family History Maternal History Items: - - Her mother had rheumatoid arthritis and also breast cancer and squamous cell lung cancer. Paternal History Items: - - Father had history of colitis Review of Systems Constitutional: Denies: Chills, Fever, Weight Change HEENT: Denies: Head Aches, Sinus Congestion, Sinus Drainage Cardiovascular: Reports: Chest Pain. Denies: Palpitations Respiratory: Reports: Shortness of Breath. Denies: Cough, Shortness of breath at rest, Sputum production Gastrointestinal: Reports: Abdominal Pain, Nausea. Denies: Vomiting Genitourinary: Denies: Dysuria Musculoskeletal: Denies: Joint Pain, Joint Tenderness Skin: Denies: Rash, Wounds Neurological: Reports: Tingling - Left arm; chronic. Denies: Focal weakness, Numbness Psychiatric: Reports: Anxiety. Denies: Depression, Homicidal Ideations, Suicidal Ideations Hematologic/ Lymphatic: Denies: Easy Bruising, Easy Bleeding VTE Information - Inpt Only VTE Present on Admission: No VTE Mechan Device Prophylaxis: SCD's VTE Pharm Prophylaxis ordered?: No Patient Problems: Active and Suspected Problems (Last Reviewed 05/25/19 @ 14:14 by Balbir Siu) Chest pain, unspecified (Acute) Diffuse abdominal pain (Acute) - Physical Exam Vitals/I&O's: Vital Signs Temp Pulse Resp BP Pulse Ox 98.6 F 88 15 116/68 98 03/22/20 19:00 03/22/20 19:00 03/22/20 19:00 03/22/20 19:00 03/22/20 19:00 Oxygen Delivery Method Room Air Weight: 100 kg Body Mass Index (BMI) 34.5 Intake and Output for Last 24 Hours 03/20/20 03/21/20 03/22/20 23:59 23:59 23:59 Intake Total 1000 / 1000 Balance 1000 / 1000 General: Alert, Oriented x3, Cooperative HEENT: Atraumatic, PERRLA, EOMI, Normocephalic Neck: Supple, No JVD, Negative Carotid Bruits Lungs: Clear to auscultation, Normal air movement, No rhonchi, No wheeze, No rales Cardiovascular: Regular rate, Normal S1, Normal S2, No murmurs Abdomen: Bowel Sounds Present, Soft, Non Tender Extremities: No edema, Capillary Refill Less than 3 Seconds Skin: No rashes, No breakdown Musculoskeletal: No Tenderness to Palpation of Joints or Extremities Neurological: Cranial nerves II-XII grossly intact Psych/Mental Status: Normal Affect, Appropriate Laboratory Results 03/22/20 17:40: WBC 8.3, RBC 4.48, Hgb 12.2, Hct 38.6, MCV 86.2, MCH 27.2, MCHC 31.6 L, RDW Std Deviation 38.2, RDW Coeff of Donya 12.0, Plt Count 310, MPV 9.9, Immature Gran % (Auto) 0.400, Neut % (Auto) 57.7, Lymph % (Auto) 29.1, [place] % (Auto) 10.2 H, Eos % (Auto) 2.0, Baso % (Auto) 0.6, Absolute Neuts (auto) 4.8, Absolute Lymphs (auto) 2.42, Nucleated RBC % 0 03/22/20 17:40: Sodium 141, Potassium 3.5, Chloride 106, Carbon Dioxide 30.0, Anion Gap 5, BUN 10, Creatinine 0.74, Estim Creat Clear Calc 88.45, Est GFR (MDRD) Af Amer 107, Est GFR (MDRD) Non-Af 88, BUN/Creatinine Ratio 13.5, Glucose 108 H, Calcium 9.0, Total Bilirubin 0.20, AST 11 L, ALT 18, Alkaline Phosphatase 127 H, Troponin I < 0.015, Total Protein 7.4, Albumin 3.4, Globulin 4.0, Albumin/Globulin Ratio 0.8 L, Lipase 87 Assessment/Plan All Active Problems (Last Reviewed 05/25/19 @ 14:14 by Balbir Siu) Chest pain, unspecified (Acute) Diffuse abdominal pain (Acute) The patient is a 50 year old F with a significant history of anxiety disorder; fibromyalgia; ulcerative colitis and arthritis who presents emergency department with progressively worsening substernal cramping chest pain that started about 1 about prior to presentation. Chest pain Place on a monitored bed at PCU Actual CXR image was independently visualized. No acute cardiopulmonary process was noted. Actual EKG tracing was independently visualized. EKG tracing showed sinus rhythm ASA 81 mg p.o. daily ordered SL NTG 0.4 mg prn as needed for chest pain ordered Morphine as needed for pain ordered We will check lipid panel. Initial troponin was negative Serial cardiac enzymes ordered Stat EKG as needed for chest pain Treadmill stress test in the AM if the cardiac enzymes are negative Diffuse abdominal pain Stress test work-up as above. Continue as needed Bentyl. Allergic to Zofran.. Compazine prn ordered. As needed morphine for pain. Ulcerative colitis With a port and gets routine Entyvio History of palpitations On metoprolol. Hold in a.m. of stress test. Plantar fasciitis With splints on right leg. Per patient she can walk on treadmill for a stress test. Anxiety disorder Celexa continued As needed Ativan continued. DVT prophylaxis SCD in the setting cardiac work-up. OBSV E&M: 46775 Initial observation care L2
[2020-03-22] MEDS: Dicyclomine 10 MG Capsule 20 MG PO (20:00)
--- NOTE | 2020-03-22 20:31 | EKG12_ITS ---
Test Reason : CP ADMISSION Blood Pressure : / mmHG Vent. Rate : 072 BPM Atrial Rate : 072 BPM P-R Int : 212 ms QRS Dur : 100 ms QT Int : 398 ms P-R-T Axes : 068 039 030 degrees QTc Int : 435 ms Sinus rhythm with 1st degree A-V block Otherwise normal ECG When compared with ECG of 12-JAN-2019 19:11, No significant change was found Confirmed by HEAVEN KANG, RUBEN ([id number]), newspaper or periodical editor MAGNO DURANT ([id number]) on 03/29/2020 2:35:55 PM Referred By: [place] Confirmed By:RUBEN COLLADO MD
--- NOTE | 2020-03-22 21:09 | PCS.PANDOC ---
PANDEMIC DOCUMENTATION INITIATED: Date: 03/22/2020 Time:2022
[2020-03-22] MEDS: LORazepam 0.5 MG Tablet PO (22:01)
[2020-03-22] MEDS: Morphine 2 MG/ML Syringe IV (22:01)
[2020-03-22] MEDS: proCHLORPERazine 10 MG/2 ML Vial 5 MG IV (22:01)
[2020-03-22] MEDS: MELATONIN 3 MG TABLET PO (22:01)
[2020-03-22] MEDS: 0.9% Saline Lock 10 ML Syringe IV ×2 (22:02→22:10)
[2020-03-22] MEDS: Citalopram 40 MG TABLET PO (22:02)
[2020-03-23] VITALS (9 sets, daily range): BP systolic 91–109; BP diastolic 55–73; PULSE 75–90; RESP 16–18; TEMP 36.7–36.9; O2SAT 94–98
[2020-03-23 05:51] LABS: Cholesterol 183 mg/dL (200); High Density Lipoprotein 46 mg/dL; Triglycerides 189 mg/dL; Very Low Density Lipoprotein 38 mg/dL (5-40)
--- NOTE | 2020-03-23 05:55 | EKG12_ITS ---
Test Reason : AM EKG Blood Pressure : / mmHG Vent. Rate : 074 BPM Atrial Rate : 074 BPM P-R Int : 194 ms QRS Dur : 096 ms QT Int : 420 ms P-R-T Axes : 036 033 020 degrees QTc Int : 466 ms Normal sinus rhythm Normal ECG Confirmed by RUTH KANG, MARIANGEL ([id number]), general expeditor MAGNO DURANT ([id number]) on 03/30/2020 9:52:22 AM Referred By: DR GOTTLIEB Confirmed By:MARIANGEL MIRANDA MD
[2020-03-23] MEDS: Aspirin E.C. 81 MG Tablet PO (06:15)
--- NOTE | 2020-03-23 08:45 | STRESSREP_ITS ---
Stress Test Report Date: 03-23-2020 Procedure: Exercise tolerance test/imaging study Indications: Chest pain; MVP Consent: Per the patient Procedure: The patient exercised on a Ramirez protocol for 5 minutes and 30 seconds completing Stage I and 2 minutes and 30 seconds of Stage II achieving a peak heart rate of 150 bpm (88% predicted maximal heart rate) with a peak blood pressure 122/60 mmHg and a peak MET capacity of 7 METs. The baseline ECG demonstrated sinus rhythm. The peak exercise ECG demonstrated no obvious ECG changes. There were no cardiac dysrhythmias pretest, during exercise, or recovery. The functional capacity was considered average. There was no complaint of chest discomfort during exercise or recovery. The examination was discontinued secondary to dyspnea. Impression: 1. Technically adequate (percent predicted maximal heart rate greater than 85%) exercise tolerance test 2. Peak exercise ECG with no obvious ECG changes 3. There were no cardiac dysrhythmias pretest, during exercise, or recovery 4. Nuclear images pending Myocardial perfusion imaging study: Technique: The patient was injected with 14.2 mCi of technetium 99m Cardiolite and subsequently rest SPECT Cardiolite nuclear imaging was obtained in the horizontal long, vertical long, and short axis views. The patient exercised on a Ramirez protocol for 5 minutes and 30 seconds completing Stage I and 2 minutes and 30 seconds of Stage II achieving a peak heart rate of 150 bpm (88% predicted maximal heart rate) with a peak blood pressure 122/60 mmHg and a peak MET capacity of 7 METs. The patient was injected with 43.7 mCi of technetium 99m Cardiolite and subsequently stress SPECT Cardiolite nuclear imaging was obtained in the horizontal long, vertical long, and short axis views. A gated Cardiolite study at peak stress was obtained. Interpretation: Rest and stress SPECT Cardiolite nuclear imaging status post realignment and normalization demonstrates relative uniform tracer uptake and myocardial perfusion appearing within normal limits. There is end systolic thickening and brightening. The gated Cardiolite study demonstrates myocardial thickening and inward wall motion. The reported LVEF is 72%. Impression: 1. Relative uniform tracer uptake and myocardial perfusion appearing within normal limits. 2. The gated Cardiolite study reports an LVEF of 72%. This note was generated with [employer] software. It may contain incorrect words, spelling, and punctuation that were not noted in checking the note before signing.
--- NOTE | 2020-03-23 09:43 | DCINST_ITS ---
- Discharge Diagnoses Current Active Problems: Current Active and Chronic Problems (Last Reviewed 05/25/19 @ 14:14 by Balbir Siu) Ulcerative colitis (Chronic) Chest pain, unspecified (Acute) Diffuse abdominal pain (Acute) Hordeolum externum of right lower eyelid (Chronic) MVP (mitral valve prolapse) (Chronic) Crohn disease (Chronic) Nephrolithiasis (Chronic) Fibromyalgia (Chronic) Rheumatoid arthritis (Chronic) You will use the following diet at home:: No restrictions Your food should be the consistency of: Regular Your liquids should be the consistency of: Regular/Thin Discharge Activity: Return to Normal Activity Weight Bearing Status: Full weight bearing Allergies/Adverse Reactions: Allergies erythromycin base [Erythromycin Base] Allergy (Severe, Verified 03/22/20 16:43) N/V/D CANT BREAATHE STATES LOSES BLADDER AND BOWEL CONTROL, CAUSES N/V/D Penicillins Allergy (Verified 03/22/20 16:43) Vomiting ondansetron HCl [From Zofran (as hydrochloride)] Adverse Reaction (Mild, Verified 03/22/20 16:43) GUDINO Medications to take at Discharge Citalopram [Celexa] 40 mg PO DAILY 03/22/20 Dicyclomine HCl 10 mg PO TID PRN PRN 03/22/20 Estradiol 1 mg PO DAILY 03/22/20 Lorazepam [Ativan] 0.5 mg PO TID PRN PRN 03/22/20 Metoprolol Succinate [Toprol Xl] 25 mg PO DAILY 03/22/20 Multivitamin 1 tab PO DAILY 03/22/20 Promethazine HCl 25 mg PO Q6H PRN PRN 03/22/20 traMADol [Ultram] 50 mg PO Q6H PRN PRN 03/22/20 Primary Care Physician: Emmanuel Eagle DO [Primary Care Provider] - Please follow up with your Primary Care Physician in: in 2 weeks Test Results: Test results from this visit will be discussed in further detail at your follow- up appointment, if applicable.
[2020-03-23] MEDS: Metoprolol(XL)Succ 25 MG Tablet PO (10:23)
[2020-03-23] MEDS: Citalopram 40 MG TABLET PO (10:24)
[2020-03-23] MEDS: Multivitamins,Therapeutic Tablet 1 TABLET PO (10:24)
[2020-03-23] MEDS: Estradiol 0.5 MG Tablet PO (10:24)
--- NOTE | 2020-03-23 10:36 | PHA.DC.MR ---
Pharmacy Service has performed discharge medication reconciliation for this patient. The patient's discharge medication list was reviewed for discrepancies and discrepancies were resolved. Home Medications Citalopram [Celexa] 40 mg PO DAILY 03/22/20 Dicyclomine HCl 10 mg PO TID PRN PRN 03/22/20 Estradiol 1 mg PO DAILY 03/22/20 Lorazepam [Ativan] 0.5 mg PO TID PRN PRN 03/22/20 Metoprolol Succinate [Toprol Xl] 25 mg PO DAILY 03/22/20 Multivitamin 1 tab PO DAILY 03/22/20 Promethazine HCl 25 mg PO Q6H PRN PRN 03/22/20 traMADol [Ultram] 50 mg PO Q6H PRN PRN 03/22/20
--- NOTE | 2020-03-24 18:22 | PCM.DC.SUM ---
Discharge Date and Diagnosis - Problem List Patient Problems: Active and Suspected Problems (Last Reviewed 05/25/19 @ 14:14 by Balbir Siu) Chest pain, unspecified (Acute) Diffuse abdominal pain (Acute) Date of Admission: 03/22/20 Date of Discharge: 03/23/20 - Primary Discharge Diagnosis Acute Problems: Active Problems (Last Reviewed 05/25/19 @ 14:14 by Balbir Siu) #1 musculoskeletal chest pain #2 ulcerative colitis #3 chronic anxiety disorder #4 rheumatoid arthritis - Secondary Discharge Diagnosis Chronic Problems: Chronic Problems (Last Reviewed 05/25/19 @ 14:14 by Balbir Siu) Ulcerative colitis (Chronic) Hordeolum externum of right lower eyelid (Chronic) MVP (mitral valve prolapse) (Chronic) Crohn disease (Chronic) Nephrolithiasis (Chronic) Fibromyalgia (Chronic) Rheumatoid arthritis (Chronic) Hospital Course and Treatment Operations: None Procedures: Nuclear stress test Summary of Care Provided: The patient is a 50 year old F was seen in the emergency room at [facility] after being brought in by squad with complaints of precordial chest pain that she described as a tightness. Work-up in the emergency room was unremarkable-this included a chest x-ray, cardiac enzymes, and EKG. Patient was placed in observation status on PCU and enzymes were cycled, these remain negative and she underwent an exercise nuclear stress test which was negative for reversible ischemia. On 03/23/2020, patient was seen and examined: On examination she appeared in good health and spirits, she does not appear to be in any distress. Vital signs as documented. Skin warm and dry and without overt rashes. Neck without JVD, thyroid appears normal, trachea is midline, neck is supple. Lungs clear, normal air movement was noted. Heart exam notable for regular rhythm, normal sounds and absence of murmurs, rubs or gallops. Abdomen unremarkable and without evidence of organomegaly, masses, or abdominal aortic enlargement, bowel sounds are present in all 4 quadrants, no abdominal tenderness was noted. Extremities nonedematous, no cyanosis was noted, no clubbing was noted. Neuro: Cranial nerves II through XII are grossly intact, no focal motor deficits were noted, sensation to light touch and pinprick is intact, motor exam 5/5 throughout. Psych: Patient is alert and oriented x3, she does not appear anxious or depressed, she does not appear agitated. Patient was discharged home in stable condition on 03/23/2020. Patient Problems: Active and Suspected Problems (Last Reviewed 05/25/19 @ 14:14 by Balbir Siu) Chest pain, unspecified (Acute) Diffuse abdominal pain (Acute) - Physical Exam Vitals/I&O's: Vital Signs Temp Pulse Resp BP Pulse Ox 98.1 F 88 18 109/67 98 03/23/20 15:42 03/23/20 15:42 03/23/20 15:42 03/23/20 15:42 03/23/20 15:42 Oxygen Delivery Method Room Air Weight: 95.1 kg Body Mass Index (BMI) 32.8 Intake and Output for Last 24 Hours 03/22/20 03/23/20 03/24/20 23:59 23:59 23:59 Intake Total 1000 / 1000 100 / 100 Balance 1000 / 1000 100 / 100 Discharge Activity: Return to Normal Activity Weight Bearing Status: Full weight bearing Home Medications: Medications to take at Discharge Citalopram [Celexa] 40 mg PO DAILY 03/22/20 Dicyclomine HCl 10 mg PO TID PRN PRN 03/22/20 Estradiol 1 mg PO DAILY 03/22/20 Lorazepam [Ativan] 0.5 mg PO TID PRN PRN 03/22/20 Metoprolol Succinate [Toprol Xl] 25 mg PO DAILY 03/22/20 Multivitamin 1 tab PO DAILY 03/22/20 Promethazine HCl 25 mg PO Q6H PRN PRN 03/22/20 traMADol [Ultram] 50 mg PO Q6H PRN PRN 03/22/20 Primary Care Physician: Emmanuel Eagle DO [Primary Care Provider] - Please follow up with your Primary Care Physician in: in 2 weeks Disposition: Home Minutes spent on discharge:: 31 Patient Condition:: Stable Medical Necessity - Tobacco Use Smoking Status: Never smoker Meaningful Use Info Meaningful Use Diagnoses (Choose all that apply): None applicable OBSV E&M: 09090 Observation care discharge
== END 2020-03-23 09:43 | disposition home or self-care (01) ==
LOC: ED 19:47 → PCU 20:17
PROVIDERS: Admitting Provider Hospitalist; Emergency Provider Emergency Medicine; PCP Preventive Medicine Occupational Medicine; Visit Provider Internal Medicine
DX: R07.89 Other chest pain (principal); K51.90 Ulcerative colitis, unspecified, without complications; M79.7 Fibromyalgia; M06.9 Rheumatoid arthritis, unspecified; Z79.899 Other long term (current) drug therapy; H00.012 Hordeolum externum right lower eyelid; F41.9 Anxiety disorder, unspecified; M19.90 Unspecified osteoarthritis, unspecified site; M72.2 Plantar fascial fibromatosis
CPT/HCPCS: 36415; 36591; 71045; 74177; 78452; 80053; 80061; 83690; 84484; 85025; 93005; 93017; 96361; 96374; 96375; 96376; 99218; 99285; 99406; A9500; Q9967; A4216; G0378

== ENCOUNTER → 2020-05-24 07:57 | Outpatient (CLI) | payer SELFPAY ==
[2020-04-28 11:22] VITALS: BMI 33.0
== END ==
LOC: MEDOUTP 08:00
PROVIDERS: PCP Preventive Medicine Occupational Medicine; Referring Provider Internal Medicine Gastroenterology; Visit Provider Internal Medicine Gastroenterology
DX: K51.90 Ulcerative colitis, unspecified, without complications (principal)
CPT/HCPCS: 96523; A4216

== ENCOUNTER → 2020-07-31 16:02 | Outpatient (CLI) | payer BC, SELFPAY ==
[2020-04-28 11:22] VITALS: BMI 33.0
[2020-07-31 16:45] LABS: Hematocrit 38.4 % (37-47); Hemoglobin 12.5 g/dL (12.0-15.0); Mean Corp Hgb Conc 32.6 g/dL (32-36); Mean Corpuscular Hgb 27.7 pg (27.0-32.0); Mean Platelet Vol. 9.9 fl (6.2-12.0); Platelet Count 265 K/mm3 (150-450); RBC Distribution Width CV 12.5 % (11.6-14.6); RBC Distribution Width SD 38.4 fl (35.1-43.9); Red Blood Count 4.52 M/mm3 (4.2-5.4); White Blood Count 9.2 K/mm3 (4.4-11.0)
[2020-07-31 16:59] LABS: Erythrocyte Sedimentation Rate 22 mm/hr (0-30)
[2020-07-31 17:04] LABS: ALB/GLOB Ratio 0.9 RATIO (0.9-2.4); AST(SGOT) 17 U/L (15-37); Alanine Aminotransfer ALT/SGPT 16 U/L (13-56); Albumin, Serum 3.6 g/dL (3.2-5.0); Alkaline Phosphatase 124 U/L (45-117); Anion Gap 3 (5-15); BUN 16 mg/dL (7-18); BUN/Creat Ratio 23.6 RATIO (10-20); CRP 6.88 mg/L (0.0-3.0); Chloride 107 mmol/L (98-107); Creatinine, Serum 0.68 mg/dL (0.55-1.02); EST Glomerular Filtration Rate 98 mL/min (>60); Est Glom Filt Rate - Afr Amer 118 mL/min (>60); Estradiol 40.6 pg/mL; Glucose 91 mg/dL (74-106); Potassium 3.8 mmol/L (3.5-5.1); Protein, Total 7.6 g/dL (6.4-8.2); Sodium Level 139 mmol/L (136-145)
[2020-07-31 17:54] LABS: Progesterone Level 21.86 ng/mL (See Comment)
== END ==
LOC: MEDOUTP 16:09
PROVIDERS: PCP Preventive Medicine Occupational Medicine; Referring Provider Internal Medicine Gastroenterology; Visit Provider Internal Medicine Gastroenterology
DX: K51.90 Ulcerative colitis, unspecified, without complications (principal); N95.1 Menopausal and female climacteric states
CPT/HCPCS: 36591; 80053; 82670; 84144; 84403; 85027; 85652; 86140; A4216

== ENCOUNTER 2020-10-21 11:54 | Emergency (ER) | payer BC, SELFPAY ==
[2020-04-28 11:22] VITALS: BMI 33.0
[2020-10-21 11:55] VITALS: BP 106/83; PULSE 83; RESP 16; TEMP 36.9; O2SAT 99; BMI 31.4
--- NOTE | 2020-10-21 12:11 | RAD_ITS ---
STUDY: X-RAY CHEST REASON FOR EXAM: Female, 50 years old. cough TECHNIQUE: Single AP portable view of the chest. COMPARISON: 03/22/2020 FINDINGS: Left internal jugular chest port which is unchanged. The lungs are clear and expanded. There is no demonstrated pleural abnormality. Normal size heart. Normal mediastinum and john. Normal visualized pulmonary arteries. Normal visualized aortic arch and descending thoracic aorta. Normal visualized thoracic spine. Normal visualized ribs, clavicles, and shoulders. There is no demonstrated abnormality of the visualized soft tissue structures of the upper abdomen. RAD/Chest 1 View (Portable) IMPRESSION: No active disease. Electronically Signed: Eris Adams MD at 12:58 EDT Tel , Service support ,
--- NOTE | 2020-10-21 12:16 | EDS_ITS ---
HPI History of Present Illness Chief Complaint: Cough Narrative Narrative: Patient is a 50-year-old female with past medical history of immunosuppression. 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 She reports she had an outpatient test done recently and it was positive. She states that her fatigue and cough have steadily worsened. She states she is not been on any type of medication for this but with her persistent/worsening symptoms is concerned that she may need admitted and comes to the hospital for evaluation [facility] Medical History (Updated 10/21/20 @ 14:[address] Janak Wing, DO) Arthritis Degenerative disc disease Fibromyalgia Ulcerative colitis Home Medications citalopram 40 mg PO DAILY 03/22/20 [History Last Taken 03/21/20] dicyclomine 10 mg PO TID PRN PRN 03/22/20 [History Last Taken Unknown] estradiol 1 mg PO DAILY 03/22/20 [History Last Taken 03/21/20] lorazepam 0.5 mg PO TID PRN PRN 03/22/20 [History Last Taken 03/22/20] metoprolol succinate 25 mg PO DAILY 03/22/20 [History Last Taken 03/22/20] multivitamin 1 tab PO DAILY 03/22/20 [History Last Taken 03/22/20] tramadol 50 mg PO Q6H PRN PRN 03/22/20 [History Last Taken 03/22/20] dexamethasone [Decadron] 6 mg PO DAILY #7 tab 10/21/20 [Rx Last Taken Unknown] promethazine-codeine 5 ml PO .qid 7 Days #140 ml 10/21/20 [Rx Last Taken Unknown] Allergy/AdvReac Type Severity Reaction Status Date / Time erythromycin base Allergy Severe N/V/D CANT Verified 10/21/20 11:55 [Erythromycin Base] BREAATHE Penicillins Allergy Vomiting Verified 10/21/20 11:55 ondansetron HCl AdvReac Mild GUDINO Verified 10/21/20 11:55 [From Zofran (as hydrochloride)] Social History (Updated 04/28/20 @ 12:36 by Aylin BYRD PA) Smoking Status: Never smoker alcohol intake: never ROS ROS ED Constitutional Constitutional ED: Denies chills or fever(s) Eyes Eyes: Denies change in vision ENT ENT ED: Reports rhinorrhea; Denies sore throat Cardiovascular Cardiovascular: Denies chest pain Respiratory/Chest Respiratory/Chest: Reports cough and dyspnea Gastrointestinal Gastrointestinal: Reports abdominal pain, diarrhea and nausea; Denies vomiting Genitourinary Genitourinary ED: Denies dysuria Musculoskeletal Musculoskeletal: Reports myalgias Integumentary Denies rash Neurologic Neurologic: Reports headache(s) EXAM Physical Exam Const Vital Signs: 10/21/20 11:55 10/21/20 13:08 10/21/20 14:22 Temperature 98.5 F Temperature Source Temporal Pulse Rate 83 Respiratory Rate 16 16 Respiratory Effort Normal Non-Labored Blood Pressure 106/83 H Blood Pressure Mean 90 Pulse Ox 99 Oxygen Delivery Method Room Air Positive well nourished and well developed General Appearance ED: well developed HEENT HEENT Narrative: Mild cobblestoning the posterior pharynx consistent with sinus drainage but no airway edema or compromise. Mucous membranes are slightly dry and tacky Eyes PERRL and EOMs intact bilaterally Neck supple Chest Wall inspection of chest normal and palpation of chest normal Resp Resp Narrative: Breath sounds are slightly diminished throughout with faint expiratory wheeze but no signs of respiratory distress Cardio regular rate, regular rhythm and no murmurs GI GI Narrative: Abdomen is soft and nondistended with hyperactive bowel sounds. There is mild diffuse pain with palpation but no voluntary guarding or rigidity Extremity normal to inspection Extremity Narrative: No asymmetric edema no pitting edema negative Homans' sign bilaterally Neuro oriented x3 and CN's II-XII intact bilaterally Sensorium / Orientation: alert Psych mental status grossly normal Skin no rashes or lesions noted Skin Narrative: Skin turgor is slightly increased MDM MDM MDM Narrative Medical decision making narrative: To the ER with stable vitals and no acute respiratory distress. With report of having cover for the past 2 weeks I did elect to perform chest x-ray and basic laboratory studies especially as she reported poor oral intake and her generalized weakness. Imaging and labs revealed no acute finding. After treatment with Decadron fluids and Toradol patient did report feeling moderately better. She also remained in no signs of respiratory distress. Therefore at this time with negative work-up and stable vitals patient is safe for discharge home with symptomatic medications Lab Data Labs: Laboratory Results - last 24 hr 10/21/20 10/21/20 13:11 13:11 WBC 10.8 RBC 4.37 Hgb 12.2 Hct 38.0 MCV 87.0 MCH 27.9 MCHC 32.1 RDW Std Deviation 39.1 RDW Coeff of Donya 12.3 Plt Count 281 MPV 9.1 Immature Gran % (Auto) 1.000 H Neut % (Auto) 58.9 Lymph % (Auto) 26.5 [place] % (Auto) 11.7 H Eos % (Auto) 1.4 Baso % (Auto) 0.5 Absolute Neuts (auto) 6.4 Absolute Lymphs (auto) 2.87 Nucleated RBC % 0 Sodium 141 Potassium 3.5 Chloride 108 H Carbon Dioxide 28.0 Anion Gap 5 BUN 13 Creatinine 0.61 Estim Creat Clear Calc 103.29 Est GFR (MDRD) Af Amer 134 Est GFR (MDRD) Non-Af 111 BUN/Creatinine Ratio 21.4 H Glucose 98 Calcium 8.8 Magnesium 2.4 Radiography Diagnostic Testing: Radiology Impression Chest X-Ray 10/21/20 12:11 IMPRESSION: No active disease. Electronically Signed: Eris Adams MD at 12:58 EDT Tel , Service support , Discharge Plan Triage Chief Complaint: Cough ED Provider: Janak Wing Dx/Rx/DC Orders Clinical Impression: COVID-19 Instructions: Coronavirus Disease 2019 (COVID-19): Caring for Yourself or Others Prescriptions: New dexamethasone [Decadron] 6 mg tablet 6 mg PO DAILY Qty: 7 RF: 0 promethazine-codeine 6.25-10 mg/5 mL syrup 5 ml PO .qid 7 Days Qty: 140 RF: 0 No Action estradiol 0.5 MG tablet 1 mg PO DAILY RF: 0 dicyclomine 10 MG capsule 10 mg PO TID PRN PRN (Reason: ULCERTIE COLITIS) RF: 0 multivitamin 1 EACH tablet 1 tab PO DAILY RF: 0 tramadol 50 MG tablet 50 mg PO Q6H PRN PRN (Reason: Pain 1-10 Or Fever) RF: 0 citalopram 20 MG tablet 40 mg PO DAILY RF: 0 lorazepam 0.5 MG tablet 0.5 mg PO TID PRN PRN (Reason: Anxiety) RF: 0 metoprolol succinate 25 MG tablet extended release 24 hr 25 mg PO DAILY RF: 0 Primary Care Provider: Emmanuel Eagle Referrals: Emmanuel Eagle DO [Primary Care Provider] - Disposition Disposition: Home, Self Care
[2020-10-21] MEDS: dexAMETHasone 10 MG/ML Vial IV (13:08)
[2020-10-21] MEDS: 0.9% Normal Saline 1,000 ML 999 ML IV (13:08)
[2020-10-21 13:23] LABS: Absolute Lymphocyte Count 2.87 X10^3/uL (0.83-4.51); Absolute Neutrophil Count 6.4 X10^3/uL (2.0-7.7); Basophil# 0.05 X10^3/uL; Basophil% 0.5 % (0-1); Eosinophil# 0.15 X10^3/uL; Eosinophils% 1.4 % (0-5); Hemoglobin 12.2 g/dL (12.0-15.0); Lymphocyte # 2.87 X10^3/ul (0.83-4.51); Lymphocyte % 26.5 % (19-41); Mean Corp Hgb Conc 32.1 g/dL (32-36); Mean Corpuscular Hgb 27.9 pg (27.0-32.0); Mean Platelet Vol. 9.1 fl (6.2-12.0); Monocyte# 1.27 X10^3/uL; Monocyte% 11.7 % (0-10); NRBC Flagged by Analyzer 0 % (0-5); Neutrophil # 6.39 X10^3/uL (2.7-7.7); Neutrophil % 58.9 % (47-70); Platelet Count 281 K/mm3 (150-450); RBC Distribution Width CV 12.3 % (11.6-14.6); RBC Distribution Width SD 39.1 fl (35.1-43.9); Red Blood Count 4.37 M/mm3 (4.2-5.4); White Blood Count 10.8 K/mm3 (4.4-11.0)
[2020-10-21 13:40] LABS: Anion Gap 5 (5-15); BUN 13 mg/dL (7-18); BUN/Creat Ratio 21.4 RATIO (10-20); Calcium,Total 8.8 mg/dL (8.5-10.1); Chloride 108 mmol/L (98-107); Creatinine, Serum 0.61 mg/dL (0.55-1.02); EST Glomerular Filtration Rate 111 mL/min (>60); Est Glom Filt Rate - Afr Amer 134 mL/min (>60); Estimated Creatinine Clearance 103.29 ml/min; Glucose 98 mg/dL (74-106); Magnesium 2.4 mg/dL (1.6-2.6); Potassium 3.5 mmol/L (3.5-5.1); Sodium Level 141 mmol/L (136-145)
[2020-10-21] MEDS: Dicyclomine 10 MG Capsule 20 MG PO (14:08)
[2020-10-21 14:22] VITALS: RESP 16
[2020-10-21 15:04] VITALS: BP 124/77; PULSE 68; RESP 15; O2SAT 97
== END 2020-10-21 15:05 | disposition home or self-care (01) ==
PROVIDERS: Emergency Provider Emergency Medicine; PCP Preventive Medicine Occupational Medicine
DX: U07.1 COVID-19 (principal); M19.90 Unspecified osteoarthritis, unspecified site; M79.7 Fibromyalgia; K51.90 Ulcerative colitis, unspecified, without complications; Z79.899 Other long term (current) drug therapy; Z79.52 Long term (current) use of systemic steroids
CPT/HCPCS: 71045; 80048; 83735; 85025; 96361; 96374; 99283; J7030; A4216

== ENCOUNTER → 2021-01-25 09:00 | Outpatient (CLI) | payer MEDICARE, SELFPAY | PROVIDERS: PCP Preventive Medicine Occupational Medicine; Referring Provider Physician Assistant Surgical; Visit Provider Physician Assistant Surgical | DX: Z11.52 Encounter for screening for COVID-19 (principal) | CPT/HCPCS: 87635; U0005; U0003 ==

== ENCOUNTER 2021-06-29 01:33 | Emergency (ER) | payer BC, SELFPAY ==
[2021-06-29 01:34] VITALS: BP 127/77; PULSE 77; RESP 16; TEMP 36.9; O2SAT 98; BMI 34.8
[2021-06-29 02:14] LABS: Absolute Neutrophil Count 6.8 X10^3/uL (2.0-7.7); Basophil# 0.05 X10^3/uL; Basophil% 0.4 % (0-1); Eosinophil# 0.02 X10^3/uL; Eosinophils% 0.2 % (0-5); Hemoglobin 12.1 g/dL (12.0-15.0); Lymphocyte % 25.5 % (19-41); Mean Corp Hgb Conc 32.7 g/dL (32-36); Mean Corpuscular Hgb 27.9 pg (27.0-32.0); Mean Corpuscular Volume 85.5 fL (81-99); Mean Platelet Vol. 9.7 fl (6.2-12.0); Monocyte# 1.52 X10^3/uL; Monocyte% 13.4 % (0-10); NRBC Flagged by Analyzer 0 % (0-5); Neutrophil # 6.78 X10^3/uL (2.7-7.7); Neutrophil % 59.6 % (47-70); POSITIVE DIFFERENTIAL YES; Platelet Count 307 K/mm3 (150-450); RBC Distribution Width CV 12.6 % (11.6-14.6); RBC Distribution Width SD 39.1 fl (35.1-43.9); Red Blood Count 4.33 M/mm3 (4.2-5.4); White Blood Count 11.4 K/mm3 (4.4-11.0)
[2021-06-29 02:20] LABS: Erythrocyte Sedimentation Rate 16 mm/hr (0-30)
[2021-06-29] MEDS: 0.9% Normal Saline 1,000 ML 999 ML IV ×2 (02:23→04:48)
[2021-06-29] MEDS: Ondansetron 4 MG/2 ML Vial IV (02:23)
[2021-06-29] MEDS: HYDROmorphone 1 MG/ML Syringe IV ×3 (02:24→05:02)
[2021-06-29 02:26] LABS: Differential Indicated SCAN CRITERIA MET
[2021-06-29 02:40] LABS: Anion Gap 5 (5-15); BUN 11 mg/dL (7-18); CRP 6.63 mg/L (0.0-3.0); Calcium,Total 8.6 mg/dL (8.5-10.1); Chloride 108 mmol/L (98-107); Creatinine, Serum 0.73 mg/dL (0.55-1.02); EST Glomerular Filtration Rate 89 mL/min (>60); Est Glom Filt Rate - Afr Amer 108 mL/min (>60); Estimated Creatinine Clearance 85.35 ml/min; Glucose 129 mg/dL (74-106); Magnesium 2.1 mg/dL (1.6-2.6); Potassium 2.7 mmol/L (3.5-5.1); Sodium Level 142 mmol/L (136-145)
[2021-06-29 02:45] LABS: Differential Comment SCANNED; Reactive Lymphocyte 1+
[2021-06-29 03:11] LABS: Lactic Acid 2.6 mmol/L (0.4-1.9)
[2021-06-29] MEDS: Potassium Chloride 10mEq/100mL 10 MEQ/100 ML IV.SOLN. 100 MEQ IV BOLUS ×3 (03:13→05:14)
--- NOTE | 2021-06-29 03:13 | CT_ITS ---
STUDY: CT ABDOMEN AND PELVIS WITH CONTRAST REASON FOR EXAM: Female, 51 years old. LLQ pain RADIATION DOSAGE (If Supplied By Facility): CTDIvol = ( 11.98 ) mGy, DLP = ( 962.83 ) mGycm TECHNIQUE: Transaxial images were obtained from the dome of the diaphragm to the symphysis pubis without oral contrast. IV 100mL Isovue-300 was administered. Sagittal and coronal images were reconstructed. Individualized dose optimization techniques were used for this CT. COMPARISON: CT abdomen pelvis 03/22/2020. FINDINGS: LOWER CHEST: Unremarkable. LIVER: Unremarkable. GALLBLADDER/BILE DUCTS: Gallbladder surgically absent PANCREAS: Unremarkable. SPLEEN: Unremarkable. ADRENAL GLANDS: Unremarkable. KIDNEYS / URETERS: Unremarkable. A few small cysts in the kidneys. BOWEL / MESENTERY: Wall thickening of the transverse colon with mild adjacent stranding. Also segments of wall thickening of the mid descending colon, and suggestion of wall thickening of the rectosigmoid colon. No bowel obstruction. APPENDIX: Identified and normal. No evidence of acute appendicitis. PERITONEUM: No free air. No free fluid. VESSELS: Abdominal aorta is normal caliber. RETROPERITONEUM: Unremarkable. REPRODUCTIVE ORGANS: Uterus not identified. BLADDER: Minimally distended. ABDOMINAL WALL: Small umbilical hernia contains only fat, no bowel. BONES: No acute abnormality. OTHER: None. CT/Abdomen/Pelvis W IV Cont ONLY IMPRESSION: Acute colitis most pronounced in the mid transverse colon, with mild involvement of the descending through rectosigmoid. Most likely inflammatory or infectious etiology. Electronically Signed: Nichole Guzman MD at 4:15 EDT ,
[2021-06-29 03:34] VITALS: BP 100/62; PULSE 88; RESP 15; O2SAT 94
--- NOTE | 2021-06-29 04:38 | EDS_ITS ---
HPI History of Present Illness Chief Complaint: Abd Pain Narrative Narrative: Patient is a 51-year-old female with past medical history of ulcerative colitis. She states she works at a [employer] and a stomach bug has made its rounds through there. She states that she has had 2 to 3 days of generalized abdominal discomfort greatest in the left lower quadrant with bouts of nausea vomiting and diarrhea. She states she just started prednisone yesterday secondary to a concern for a ulcer colitis flare. However she states because of the increasing pain and persistent loose stool/diarrhea she is concerned for dehydration and therefore comes in for evaluation. Patient denies any previous history of obstruction or intestinal abscess [facility] Medical History Arthritis Degenerative disc disease Fibromyalgia Ulcerative colitis Home Medications citalopram 40 mg PO DAILY 03/22/20 [History Last Taken 03/21/20] dicyclomine 10 mg PO TID PRN PRN 03/22/20 [History Last Taken Unknown] estradiol 1 mg PO DAILY 03/22/20 [History Last Taken 03/21/20] lorazepam 0.5 mg PO TID PRN PRN 03/22/20 [History Last Taken 03/22/20] metoprolol succinate 25 mg PO DAILY 03/22/20 [History Last Taken 03/22/20] multivitamin 1 tab PO DAILY 03/22/20 [History Last Taken 03/22/20] tramadol 50 mg PO Q6H PRN PRN 03/22/20 [History Last Taken 03/22/20] promethazine-codeine 5 ml PO .qid 7 Days #140 ml 10/21/20 [Rx Last Taken Unknown] oxycodone-acetaminophen [Percocet] 1 tab PO Q6H PRN 3 Days #12 tab 06/29/21 [Rx Last Taken Unknown] potassium chloride 10 meq PO DAILY 7 Days #7 tab 06/29/21 [Rx Last Taken Unknown] promethazine 25 mg PO TID PRN #21 tab 06/29/21 [Rx Last Taken Unknown] Allergy/AdvReac Type Severity Reaction Status Date / Time erythromycin base Allergy Severe N/V/D CANT Verified 06/29/21 01:37 [Erythromycin Base] BREAATHE Penicillins Allergy Vomiting Verified 06/29/21 01:37 ondansetron HCl AdvReac Mild GUDINO Verified 06/29/21 01:37 [From Zofran (as hydrochloride)] Social History (Updated 04/28/20 @ 12:36 by Aylin BYRD, CARSON) Smoking Status: Never smoker alcohol intake: never ROS ROS ED Constitutional Constitutional ED: Reports fever(s); Denies chills ENT ENT ED: Denies sore throat Cardiovascular Cardiovascular: Denies chest pain Respiratory/Chest Respiratory/Chest: Denies cough or dyspnea Gastrointestinal Gastrointestinal: Reports abdominal pain, diarrhea, nausea and vomiting Genitourinary Genitourinary ED: Denies dysuria Musculoskeletal Musculoskeletal: Reports myalgias Integumentary Denies rash Neurologic Neurologic: Denies headache(s) Hematologic/Lymphatic Hematologic/Lymphatic: Denies easy bleeding or easy bruising EXAM Physical Exam Const Vital Signs: 06/29/21 01:34 06/29/21 03:34 06/29/21 04:50 Temperature 98.4 F Temperature Source Temporal Pulse Rate 77 88 93 Respiratory Rate 16 15 16 Blood Pressure 127/77 H 100/62 103/76 Blood Pressure Mean 93 74 85 Pulse Ox 98 94 98 Oxygen Delivery Method Room Air Room Air Room Air Positive well nourished and well developed General Appearance ED: well developed HEENT Reports dry mucous membranes Mouth ED: Yes dry mucous membranes Mouth: dry mucous membranes Eyes PERRL and EOMs intact bilaterally General Eye ED: Negative for pale conjunctiva Neck supple Resp normal respiratory effort and clear to auscultation bilaterally Cardio regular rate and regular rhythm Rate: other Other Details: Radial pulses are +2-4 bilaterally are equal and symmetric GI non-distended GI Narrative: Abdomen is soft and nondistended with hyperactive bowel sounds. There is pain with palpation in the left lower quadrant with voluntary guarding at the site. No rigidity noted. No pulsatile mass or fluid wave Palpation: soft Back/Spine no CVA tenderness Extremity normal to inspection Neuro oriented x3 and CN's II-XII intact bilaterally Sensorium / Orientation: alert Motor Exam: strength 5/5 throughout Psych mental status grossly normal Skin no rashes or lesions noted Skin Narrative: Skin turgor slightly increased MDM MDM MDM Narrative Medical decision making narrative: Patient presented to the ER afebrile and normotensive. Her history and exam is most consistent with an ulcerative colitis flare secondary to a viral stomach infection. Basic blood work was obtained which shows mild elevation to her white count but patient has had steroids in the last 24 hours. Her CRP is elevated consistent with an inflammatory process and her lactic acid is also slightly bumped concerning for infection versus dehydration. Because of these values and her pain greatest in the left lower quadrant I did elect to perform a CT scan. CT scan revealed diffuse inflammatory changes consistent with an infectious versus inflammatory colitis but no intestinal abscess perforation or obstruction. Patient's potassium was also done at 2.7 therefore 40 mill equivalents was replaced IV. Patient was also given 2 L of fluid. On reevaluation she is resting comfortably and she has had no bouts of vomiting or diarrhea while in the ER. She has had i mprovement of her abdominal pain as well. We discussed treatment options and at this time as she has had no bouts of vomiting or diarrhea while in the ER and has had fluid replacement as well as electrolyte replacement she does feel comfortable returning home. She will be started on pain medication and nausea medication as well as potassium and will continue her steroids as previously directed. Lab Data Attestation: I reviewed the patient's lab results. Labs: Laboratory Results - last 24 hr 06/29/21 06/29/21 06/29/21 01:49 01:49 02:25 WBC 11.4 H RBC 4.33 Hgb 12.1 Hct 37.0 MCV 85.5 MCH 27.9 MCHC 32.7 RDW Std Deviation 39.1 RDW Coeff of Donya 12.6 Plt Count 307 MPV 9.7 Immature Gran % (Auto) 0.900 Neut % (Auto) 59.6 Lymph % (Auto) 25.5 [place] % (Auto) 13.4 H Eos % (Auto) 0.2 Baso % (Auto) 0.4 Absolute Neuts (auto) 6.8 Absolute Lymphs (auto) 2.90 Nucleated RBC % 0 Differential Comment SCANNED Diff Path Review May foll Reactive Lymphocytes 1+ ESR 16 Sodium 142 Potassium 2.7 L* Chloride 108 H Carbon Dioxide 29.0 Anion Gap 5 BUN 11 Creatinine 0.73 Estim Creat Clear Calc 85.35 Est GFR (MDRD) Af Amer 108 Est GFR (MDRD) Non-Af 89 BUN/Creatinine Ratio 15.0 Glucose 129 H Lactic Acid 2.6 H* Calcium 8.6 Magnesium 2.1 C-React Prot Ext Range 6.63 H Radiography Diagnostic Testing: Clinical Impression(s) from Imaging Studies Abdomen/Pelvis CT 06/29/21 03:13 IMPRESSION: Acute colitis most pronounced in the mid transverse colon, with mild involvement of the descending through rectosigmoid. Most likely inflammatory or infectious etiology. Electronically Signed: Nichole Guzman MD at 4:15 EDT , Discharge Plan Triage Chief Complaint: Abd Pain ED Provider: Janak Wing Dx/Rx/DC Orders Clinical Impression: Ulcerative colitis, acute, Acute hypokalemia, Dehydration Instructions: Dehydration, Colitis Ulcerative Dc, ED Hypokalemia Prescriptions: New oxycodone-acetaminophen [Percocet] 5-325 mg tablet 1 tab PO Q6H PRN (Reason: pain) 3 Days Qty: 12 RF: 0 promethazine 25 mg tablet 25 mg PO TID PRN (Reason: nausea and vomiting) Qty: 21 RF: 0 potassium chloride 10 mEq tablet extended release 10 meq PO DAILY 7 Days Qty: 7 RF: 0 No Action estradiol 0.5 MG tablet 1 mg PO DAILY RF: 0 dicyclomine 10 MG capsule 10 mg PO TID PRN PRN (Reason: ULCERTIE COLITIS) RF: 0 multivitamin 1 EACH tablet 1 tab PO DAILY RF: 0 tramadol 50 MG tablet 50 mg PO Q6H PRN PRN (Reason: Pain 1-10 Or Fever) RF: 0 citalopram 20 MG tablet 40 mg PO DAILY RF: 0 lorazepam 0.5 MG tablet 0.5 mg PO TID PRN PRN (Reason: Anxiety) RF: 0 metoprolol succinate 25 MG tablet extended release 24 hr 25 mg PO DAILY RF: 0 promethazine-codeine 6.25-10 mg/5 mL syrup 5 ml PO .qid 7 Days Qty: 140 RF: 0 Primary Care Provider: Emmanuel Eagle Referrals: Emmanuel Eagle DO [Primary Care Provider] - Activity Restrictions/Additional Instructions: Please continue your normal medications as well as the prednisone which she began yesterday to help control any inflammatory process. Stay well-hydrated and return to the ER should you have any further concerns. Disposition Disposition: Home, Self Care
[2021-06-29] MEDS: MethylPREDNISolone 125 MG/2 ML Vial IV (04:46)
[2021-06-29 04:50] VITALS: BP 103/76; PULSE 93; RESP 16; O2SAT 98
[2021-06-29 06:00] VITALS: BP 110/69; PULSE 75; RESP 11; O2SAT 93
[2021-06-29 06:33] VITALS: BP 110/69; PULSE 79; RESP 13; O2SAT 93
[2021-06-29 06:44] LABS: Reflex Lactate? Y
[2021-07-01 10:15] LABS: Pathologist Review Reviewed
== END 2021-06-29 07:09 | disposition home or self-care (01) ==
PROVIDERS: Emergency Provider Emergency Medicine; PCP Preventive Medicine Occupational Medicine; Visit Provider Emergency Medicine
DX: K51.90 Ulcerative colitis, unspecified, without complications (principal); E87.6 Hypokalemia; E86.0 Dehydration; M19.90 Unspecified osteoarthritis, unspecified site; Z79.899 Other long term (current) drug therapy
CPT/HCPCS: 36591; 74177; 80048; 83605; 83735; 85025; 85652; 86140; 96365; 96366; 96375; 96376; 99282; J7030; Q9967; A4216; J2405

== ENCOUNTER → 2021-12-18 | Outpatient (CLI) | payer BC, SELFPAY ==
[2021-12-18] MEDS: 0.9 % NaCl (Sterile) Posiflush 10 mL IV (16:08)
== END | disposition home or self-care (01) ==
LOC: MEDOUTP 15:53
PROVIDERS: PCP Preventive Medicine Occupational Medicine; Referring Provider Internal Medicine Gastroenterology; Visit Provider Internal Medicine Gastroenterology
DX: Z45.2 Encounter for adjustment and management of vascular access device (principal)
CPT/HCPCS: 96523

== ENCOUNTER → 2022-05-15 | Outpatient (CLI) | payer OTHER, SELFPAY ==
[2022-05-15] MEDS: 0.9 % NaCl (Sterile) Posiflush 10 mL IV (10:20)
[2022-05-15] MEDS: 0.9% NaCl VAD Flush IV (10:24)
== END | disposition home or self-care (01) ==
PROVIDERS: PCP Preventive Medicine Occupational Medicine; Referring Provider Internal Medicine Gastroenterology; Visit Provider Internal Medicine Gastroenterology
DX: K51.90 Ulcerative colitis, unspecified, without complications (principal)
CPT/HCPCS: 96523; A4216

== ENCOUNTER 2022-07-03 14:27 | Outpatient (CLI) | payer OTHER, SELFPAY ==
[2022-07-03 15:22] LABS: Absolute Lymphocyte Count 3.02 X10^3/uL (0.83-4.51); Absolute Neutrophil Count 4.3 X10^3/uL (2.0-7.7); Basophil# 0.06 X10^3/uL; Basophil% 0.7 % (0-1); Eosinophil# 0.31 X10^3/uL; Eosinophils% 3.5 % (0-5); Hematocrit 39.3 % (37-47); Lymphocyte # 3.02 X10^3/ul (0.83-4.51); Lymphocyte % 34.6 % (19-41); Mean Corp Hgb Conc 33.1 g/dL (32-36); Mean Corpuscular Hgb 27.7 pg (27.0-32.0); Mean Corpuscular Volume 83.6 fL (81-99); Mean Platelet Vol. 10.3 fl (6.2-12.0); Monocyte# 1.02 X10^3/uL; Monocyte% 11.7 % (0-10); NRBC Flagged by Analyzer 0 % (0-5); Neutrophil # 4.29 X10^3/uL (2.7-7.7); Platelet Count 267 K/mm3 (150-450); RBC Distribution Width CV 12.7 % (11.6-14.6); RBC Distribution Width SD 39.3 fl (35.1-43.9); White Blood Count 8.7 K/mm3 (4.4-11.0)
[2022-07-03 15:29] LABS: Erythrocyte Sedimentation Rate 23 mm/hr (0-30)
[2022-07-03 15:45] LABS: ALB/GLOB Ratio 0.8 RATIO (0.9-2.4); AST(SGOT) 21 U/L (15-37); Alanine Aminotransfer ALT/SGPT 20 U/L (13-56); Albumin, Serum 3.4 g/dL (3.2-5.0); Alkaline Phosphatase 132 U/L (45-117); Anion Gap 2 (5-15); BUN 11 mg/dL (7-18); BUN/Creat Ratio 16.1 RATIO (10-20); CRP 5.62 mg/L (0.0-3.0); Calcium,Total 9.1 mg/dL (8.5-10.1); Chloride 106 mmol/L (98-107); Creatinine, Serum 0.68 mg/dL (0.55-1.02); EST Glomerular Filtration Rate 96 mL/min (>60); Est Glom Filt Rate - Afr Amer 116 mL/min (>60); Globulin 4.1 g/dL (2.2-4.2); Glucose 97 mg/dL (74-106); LDH 156 U/L (84-246); Potassium 3.7 mmol/L (3.5-5.1); Protein, Total 7.5 g/dL (6.4-8.2); Sodium Level 137 mmol/L (136-145)
[2022-07-07 14:08] LABS: Endomysial Antibody IgA Negative (Negative); Immunoglobulin A 353 mg/dL (87-352); t-Transglutaminase IgA <2 U/mL (0-3)
[2022-07-07 16:09] LABS: Anti-Centromere B Ab <0.2 AI (0.0-0.9); Anti-Chromatin <0.2 AI (0.0-0.9); Anti-Jo <0.2 AI (0.0-0.9); Anti-Scleroderma-70 AB <0.2 AI (0.0-0.9); Anti-dsDNA Ab <1 IU/mL (0-9); RNP Ab <0.2 AI (0.0-0.9); SJOGREN'S Anti-SS-A test < 0.2 AI (0.0-0.9); SJOGREN'S Anti-SS-B test < 0.2 AI (0.0-0.9); Smith Ab <0.2 AI (0.0-0.9)
[2022-07-09 17:07] LABS: Albumin 3.5 g/dL (2.9-4.4); Alpha-1-Globulins 0.2 g/dL (0.0-0.4); Alpha-2-Globulins 0.6 g/dL (0.4-1.0); Cytoplasmic Ab (C-ANCA) <1:20 titer (Neg:<1:20); Gamma Globulin 1.3 g/dL (0.4-1.8); Immunoglobulin A 342 mg/dL (87-352); Immunoglobulin E 196 IU/mL (6-495); Immunoglobulin G 1401 mg/dL (586-1602); Immunoglobulin M 172 mg/dL (26-217); PROEL- TOTAL PROTEIN 6.8 g/dL (6.0-8.5); Perinuclear Ab (P-ANCA) <1:20 titer (Neg:<1:20); QNTFERON TB Mitogen Value > 10.00 IU/mL (.); QNTFERON TB Nil Value 0.03 IU/mL (.); QNTFERON TB1+ Ag Value 0.05 IU/mL (.); QNTFERON TB2+ Ag Value 0.11 IU/mL (.); QNTIFERON TB Positive Criteria Negative (Negative)
== END 2022-07-03 14:28 | disposition home or self-care (01) ==
PROVIDERS: PCP Preventive Medicine Occupational Medicine; Referring Provider Internal Medicine Gastroenterology; Visit Provider Internal Medicine Gastroenterology
DX: K51.90 Ulcerative colitis, unspecified, without complications (principal)
CPT/HCPCS: 36591; 80053; 82784; 82785; 83516; 83615; 84165; 85025; 85652; 86140; 86225; 86235; 86255; 86256; 86334; 86480; A4216

== ENCOUNTER → 2022-07-09 | Outpatient (CLI) | payer OTHER, SELFPAY ==
[2022-07-14 16:09] LABS: Calprotectin, Stool 183 ug/g (0-120)
== END | disposition home or self-care (01) ==
LOC: LABSPEC 08:01
PROVIDERS: PCP Preventive Medicine Occupational Medicine; Referring Provider Internal Medicine Gastroenterology; Visit Provider Internal Medicine Gastroenterology
DX: K51.90 Ulcerative colitis, unspecified, without complications (principal)
CPT/HCPCS: 83630; 83993

== ENCOUNTER → 2022-08-08 | Outpatient (CLI) | payer OTHER, SELFPAY ==
--- NOTE | 2022-08-08 12:16 | RAD_ITS ---
STUDY: X-RAY CHEST REASON FOR EXAM: Female, 52 years old. Abnormal Quantiferon TB test, need eval for TB TECHNIQUE: PA and lateral views of the chest. COMPARISON: Comparison is made with prior study October 21, 2020. FINDINGS: A left-sided kylie catheter seen with the tip at the junction of the superior vena cava and right atrium. The lungs are clear and expanded. There is no demonstrated pleural abnormality. Normal size heart. Normal mediastinum and john. Normal visualized pulmonary arteries. Normal visualized aortic arch and descending thoracic aorta. Normal visualized thoracic spine. Normal visualized ribs, clavicles, and shoulders. Surgical clips are seen in the right upper quadrant. RAD/Chest PA and Lateral IMPRESSION: Normal x-ray examination of the chest. Electronically Signed: Aren Varner MD at 12:50 EDT ,
== END | disposition home or self-care (01) ==
LOC: RAD 12:13
PROVIDERS: PCP Preventive Medicine Occupational Medicine; Referring Provider Nurse Practitioner Adult Health; Visit Provider Nurse Practitioner Adult Health
DX: R76.11 Nonspecific reaction to tuberculin skin test without active tuberculosis (principal)
CPT/HCPCS: 71046

== ENCOUNTER 2022-09-25 08:59 | Day surgery (SDC) | payer OTHER, SELFPAY ==
[2022-09-25] VITALS (9 sets, daily range): BP systolic 89–124; BP diastolic 52–81; PULSE 71–77; RESP 16; TEMP 36.3–37.3; O2SAT 96–99; BMI 34.0
--- NOTE | 2022-09-25 09:19 | HP.PCM_ITS ---
History and Physical Date of Admission: 09/25/22 Details: GABRIELA DONNELLY, is a 52 F who presents to the office today for f/u ulcerative colit is. She reports her UC has always been difficult to control. Previously followed by GI Dr Biggs. Diagnosed in 2008. No colon surgeries. Has required multiple courses of prednisone. Most recently on mesalamine but had significant LE edema. Last dose of Entyvio was beginning of April 2022, says at that time she didn't have hematochezia, but she was getting infections frequently. Off Entyvio her UC flared--multiple episodes of bloody diarrhea per day, very tired. Started budesonide 3 mg daily in early July, now stools are formed; still having 5 BMs per day, with hematochezia. Has RA. 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 Doesn't recall issue with Humira. Hasn't been on rectal medications. UC involves entire colon. She reports Dr Biggs found changes in small bowel that raised the issue of possible Crohn's. IBD lab panel suggestive of UC due to elevated atypical p- ANCA. 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 Her stepson last year. She reports depression and anxiety. Goes to bed at 5 or 6 pm, not up til morning. Her daughter has chronic vomiting, will be seeing us soon. Colonoscopy Dr. Biggs 02.23.17 for chronic UC. Inflamed rectal mucosa; left colon with inflammation and ulceration, pathology with moderately active chronic colitis with cryptitis and crypt abscesses, also seen in right colon random biopsy; pseudopolyps of transverse colon and one sessile polyp; thick liquid in right colon; CT abd/pel 7.8.22 for abd pain noting cholecystectomy. No additional acute/chronic findings. ROS Const Constitutional: Positive for headache(s); No fatigue, fever(s), frequent falls, weakness or weight change ENT ENT: Positive for headache(s); No difficulty swallowing Cardio Cardiology: No leg pain with exertion Gastro GI: Positive for abdominal pain, bloating, constipation, diarrhea, Blood in stool and nausea/dyspepsia; No change in bowel habits, heartburn, difficulty swallowing, excessive flatus, Vomiting blood/hematemesis or vomiting Musc Musculoskeletal: Positive for joint pain, back pain, muscle cramps, numbness, stiffness, tingling, Arthritis and restless legs; No joint swelling, muscle weakness, sciatica, leg pain at night or leg pain with exertion Skin Skin: No dry skin, lesions, itchy eyes or rash Neuro Neurology: Positive for headache(s), numbness, tingling and restless legs; No behavioral changes, unsteady gait/balance, weakness, frequent falls, tremor(s), Increased tone in limbs, paralysis or seizures Psych Psychiatric: Positive for anxiety, No behavioral changes, Positive for depression, No paranoia, No Compulsive Behavior, No hyperactivity, No inattentiveness, No obsessions/compulsions, No Temper Tantrums and No suicidal ideation Endo Endocrine: No fatigue or weight change Aller/Imm Allergy/Immunologic: No itchy eyes Dylan/Lymp Hematologic/Lymphatic: No easy bleeding or easy bruising Exam Const General: cooperative and comfortable Nutritional Appearance: obese Orientation: alert, awake and oriented x3 Eyes Sclera: sclerae normal Resp Effort & Inspection: normal respiratory effort GI Inspection: normal to inspection Palpation: soft and tender in the LUQ Psych Other: depressed affect Quality Reporting Tobacco Screening ([facility] 138) Smoking Status: Never smoker Assessment and Plan Assessment and Plan (1) Ulcerative colitis: Status: Chronic Plan: 52 yr old female with uncontrolled ulcerative colitis, symptoms have improved on budesonide 3 mg daily, will increase budesonide to 9 mg daily Add EGD to colonoscopy that is scheduled for 09/25/22, schedule f/u after that to review results Consider Rinvoq for UC and RA, discussed warnings Consider capsule endoscopy Need to check AMA, ASMA Quant TB test not entirely normal, will get CXR, ?need ID referral (2) Abnormal laboratory test: Status: Acute Orders: Orders Chest PA and Lateral Today R89.9 - Unspecified abnormal finding in specimens from other organs, systems and tissues Medications: Changed From budesonide ER 3 mg PO DAILY 90 ea 2RF To budesonide ER 9 mg (3 x 3 mg) PO DAILY 270 ea 0RF I have examined the patient and the H&P has been reviewed. There are no clinical changes since date of exam.
--- NOTE | 2022-09-25 10:15 | EGD_PTH ---
PATIENT: GABRIELA DONNELLY LOC: EN U#:[id number] AGE/SX: 52/F ROOM: RE09/25/[address]: Dr. Gucci Valencia DO : 1970 BED: DIS: 09/25/2022 SPEC #: [id number] RECD: 09/25/22 10:41 STATUS: RAHUL RESandie #: [id number] SANDI: 09/25/22 10:[address]: Gucci Valencia DEPT: SURGICAL PATHOLOGY RECD BY: Greta Barton ENTERED: 09/25/22 11:51 SP TYPE: EGD BIOPSY OT DR: Dr. Emmanuel Eagle DO Tissues: A - Duodenum, NOS B - Gastric mucous membrane C - Esophagus, NOS D - COLON BIOPSY E - Sigmoid colon biopsy Procedures: Special Stain Group II Surgery Specimen Level IV Alcian Blue/PAS (control) HEADER OPERATION: Colonoscopy, EGD ([facility] [place]) PRE-OP DIAGNOSIS: Ulcerative colitis TISSUE SUBMITTED: A - Duodenum biopsy, B - Gastric body biopsy, C - Distal esophagus biopsy, D - Random colon biopsy, E - Sigmoid polyp MICROSCOPIC DIAGNOSIS A. Duodenum, biopsy: Fragments of duodenal mucosa, no pathologic diagnosis. B. Gastric body, biopsy: Mild gastritis. See microscopic description and comment. C. Distal esophagus, biopsy: A fragment of gastric mucosa with moderate chronic inflammation, mild acute inflammation and Paneth cell metaplasia. Intestinal metaplasia (goblet cell metaplasia) is not identified. See comment. D. Colon, random biopsy: Focal mild chronic active colitis. Negative for dysplasia. See microscopic description and comment. E. Sigmoid polyp, polypectomy: Inflammatory pseudopolyp. SJ:rg 09/26/2022 COMMENT B. The results of immunohistochemistry for Helicobacter pylori will be reported separately ([id number]). C. Alcian blue/PAS stain with matched control is used in the evaluation of the specimen. Correlation with clinical, endoscopic findings and appropriate follow up are necessary. MICROSCOPIC DESCRIPTION Slides are reviewed. B. The specimen shows fragments of gastric mucosa with chronic inflammatory cell infiltrates in the lamina propria consisting of lymphocytes and plasma cells, consistent with mild chronic gastritis. D. The specimen shows fragments of colonic mucosa with focal mild granular distortion, mild cryptitis, mild crypt abscesses and Paneth cell metaplasia. Granulomas are not seen. No evidence of dysplasia. GROSS DESCRIPTION A - Received in fixative is one container labeled with the patient's name and designated duodenum biopsy. The specimen consists of two irregular fragments of light euceda soft tissue that in aggregate measure 0.6 x 0.4 x 0.1 cm. The specimen is totally submitted in one cassette. B - Received in fixative is one container labeled with the patient's name and designated gastric body biopsy. The specimen consists of two irregular fragments of light euceda soft tissue that in aggregate measure 0.6 x 0.3 x 0.1 cm. The specimen is totally submitted in one cassette. C - Received in fixative is one container labeled with the patient's name and designated distal esophagus biopsy. The specimen consists of one irregular fragment of light euceda soft tissue that measures 0.3 x 0.3 x 0.1 cm. The specimen is totally submitted in one cassette. D - Received in fixative is one container labeled with the patient's name and designated random colon biopsy. The specimen consists of multiple irregular fragments of light euceda soft tissue that in aggregate measure 1.0 x 0.6 x 0.1 cm. The specimen is totally submitted in one cassette. E - Received in fixative is one container labeled with the patient's name and designated sigmoid polyp. The specimen consists of a euceda-pink polyp measuring 1.2 x 1.0 x 0.5 cm. The presumed base is inked. The polyp is bisected and entirely submitted in one cassette. / SJ:artie 09/25/2022 TC:3 CPT: 99077 x5, 51605
--- NOTE | 2022-09-25 10:15 | IMM_PTH ---
PATIENT: GABRIELA DONNELLY LOC: EN U#:[id number] AGE/SX: 52/F ROOM: RE09/25/[address]: Dr. Gucci Valencia DO : 1970 BED: DIS: 09/25/2022 SPEC #: [id number] RECD: 09/25/22 13:45 STATUS: RAHUL REQ #: [id number] SANDI: 09/25/22 10:[address]: Gucci Valencia DEPT: IMMUNOHISTOCHEMISTRY RECD BY: Margaret Garcia ENTERED: 09/25/22 13:46 SP TYPE: IMMUNO OTHR DR: Dr. Emmanuel Eagle DO Tissues: B - Stomach, NOS Procedures: H Pylori (initial) PHYSICIAN & INSTITUTION [place] [address] SPECIMEN INFORMATION: Tissue Source: B - Gastric body Clinical Info: Ulcerative colitis Specimen Number: [id number] CPT code: 37016 METHODOLOGY: Deparaffinized sections of prefer/formalin-fixed tissue or PAP/DQ stained slides are incubated with monoclonal/polyclonal antibodies/oligonucleotide probes. Localization is made via biotin free immunoperoxidase method. Appropriate controls are performed and reacted as expected. Results on target cell population are indicated in the following table: RESULTS: ANTIBODY / CLONE RESULT Block B H Pylori (polyclonal) negative These tests were developed and their performance characteristics determined by [facility]. They may not have been cleared or approved by the U.S. Food and Drug Administration. The FDA has determined that such clearance or approval is not necessary. The above immunohistochemical/dualISH markers are ordered and reviewed by the Pathologist. INTERPRETATION: B. Gastric body, biopsy: Negative for Helicobacter pylori organisms. SJ:artie 09/26/2022
--- NOTE | 2022-09-25 10:35 | OP.EGD_ITS ---
Patient Name: Marika Wallis Procedure Date: 09/25/2022 9:53 AM Date of : 1970 Age: 52 Procedure: Upper GI endoscopy Indications: Epigastric abdominal pain Providers: Gucci Valencia DO Medicines: Monitored Anesthesia Care Patient Profile: This is a 52 year old female. Refer to note in patient chart for documentation of history and physical. Patient has symptoms of chronic abdominal cramping and chronic epigastric abdominal pain. Complications: No immediate complications. Procedure: Pre-Anesthesia Assessment: - Prior to the procedure, a History and Physical was performed, and patient medications and allergies were reviewed. The risks and benefits of the procedure and the sedation options and risks were discussed with the patient. All questions were answered and informed consent was obtained. Patient identification and proposed procedure were verified by the physician. Mental Status Examination: normal. CV Examination: normal. Prophylactic Antibiotics: The patient does not require prophylactic antibiotics. Prior Anticoagulants: The patient has taken no previous anticoagulant or antiplatelet agents. After reviewing the risks and benefits, the patient was deemed in satisfactory condition to undergo the procedure. The anesthesia plan was to use monitored anesthesia care (MAC). Immediately prior to administration of medications, the patient was re-assessed for adequacy to receive sedatives. The heart rate, respiratory rate, oxygen saturations, blood pressure, adequacy of pulmonary ventilation, and response to care were monitored throughout the procedure. The physical status of the patient was re-assessed after the procedure. After obtaining informed consent, the endoscope was passed under direct vision. Throughout the procedure, the patient's blood pressure, pulse, and oxygen saturations were monitored continuously. The gastroscope was introduced through the mouth, and advanced to the second part of duodenum. The upper GI endoscopy was accomplished without difficulty. The patient tolerated the procedure well. Scope In: 10:05:44 AM Scope Out: 10:09:36 AM Total Procedure Duration Time 0 hours 3 minutes 52 seconds Findings: The Z-line was irregular and was found 40 cm from the incisors. Biopsies were taken with a cold forceps for histology. Verification of patient identification for the specimen was done. Estimated blood loss was minimal. Patchy mildly erythematous mucosa without bleeding was found in the gastric body. Biopsies were taken with a cold forceps for histology. Verification of patient identification for the specimen was done. Estimated blood loss was minimal. Patchy mildly erythematous mucosa without active bleeding and with no stigmata of bleeding was found in the first portion of the duodenum. Biopsies were taken with a cold forceps for histology. Verification of patient identification for the specimen was done. Estimated blood loss was minimal. Impression: - Z-line irregular, 40 cm from the incisors. Biopsied. - Erythematous mucosa in the gastric body. Biopsied. - Erythematous duodenopathy. Biopsied. Recommendation: - Discharge patient to home. - Resume previous diet. - Continue present medications. - Await pathology results. Procedure Code(s): --- Professional --- 35177, Esophagogastroduodenoscopy, flexible, transoral; with biopsy, single or multiple CPT copyright 2017 [employer]. All rights reserved. The codes documented in this report are preliminary and upon ip technology transactions attorney review may be revised to meet current compliance requirements. Gucci Valencia DO 09/25/2022 10:35:17 AM This report has been signed electronically. Number of Addenda: 0 Note Initiated On: 09/25/2022 9:53 AM
--- NOTE | 2022-09-25 10:36 | OP.CCLET_ITS ---
09/25/2022 Emmanuel Eagle [address] [place] [address] Re : Upper GI endoscopy procedure for Marika Wallis Dear Dr. Eagle This procedure was performed on September. My impressions and recommendations are as follows: Impressions : - Z-line irregular, 40 cm from the incisors. Biopsied. - Erythematous mucosa in the gastric body. Biopsied. - Erythematous duodenopathy. Biopsied. Recommendations : - Discharge patient to home. - Resume previous diet. - Continue present medications. - Await pathology results. My findings are described in the full procedure note, which is enclosed. If I can be of further assistance, please feel free to contact me at . Sincerely, Gucci Valencia, 09/25/2022 10:35:17 AM This report has been signed electronically.
--- NOTE | 2022-09-25 10:43 | OP.COLON_ITS ---
Patient Name: Marika Wallis Procedure Date: 09/25/2022 10:11 AM Date of : 1970 Age: 52 Procedure: Colonoscopy Indications: Suspected chronic ulcerative pancolitis Providers: Gucci Valencia DO Medicines: Monitored Anesthesia Care Patient Profile: This is a 52 year old female. Refer to note in patient chart for documentation of history and physical. Patient has symptoms of chronic abdominal cramping and chronic epigastric abdominal pain. Last Colonoscopy: several years ago. Complications: No immediate complications. Procedure: Pre-Anesthesia Assessment: - Prior to the procedure, a History and Physical was performed, and patient medications and allergies were reviewed. The risks and benefits of the procedure and the sedation options and risks were discussed with the patient. All questions were answered and informed consent was obtained. Patient identification and proposed procedure were verified by the physician. Mental Status Examination: normal. CV Examination: normal. Prophylactic Antibiotics: The patient does not require prophylactic antibiotics. Prior Anticoagulants: The patient has taken no previous anticoagulant or antiplatelet agents. After reviewing the risks and benefits, the patient was deemed in satisfactory condition to undergo the procedure. The anesthesia plan was to use monitored anesthesia care (MAC). Immediately prior to administration of medications, the patient was re-assessed for adequacy to receive sedatives. The heart rate, respiratory rate, oxygen saturations, blood pressure, adequacy of pulmonary ventilation, and response to care were monitored throughout the procedure. The physical status of the patient was re-assessed after the procedure. After I obtained informed consent, the scope was passed under direct vision. Throughout the procedure, the patient's blood pressure, pulse, and oxygen saturations were monitored continuously. The colonoscope was introduced through the anus and advanced to the cecum, identified by appendiceal orifice and ileocecal valve. The colonoscopy was performed without difficulty. The patient tolerated the procedure well. The quality of the bowel preparation was inadequate. Scope In: 10:13:21 AM Scope Withdrawal Time 0 hours 9 minutes 58 seconds Scope Out: 10:26:46 AM Total Procedure Duration Time 0 hours 13 minutes 25 seconds Findings: Hemorrhoids were found on perianal exam. Extensive amounts of stool was found in the entire colon, precluding visualization. A 19 mm polyp was found in the sigmoid colon. The polyp was semi-pedunculated. The polyp was removed with a hot snare. Resection and retrieval were complete. Verification of patient identification for the specimen was done. Estimated blood loss was minimal. Area was successfully injected with 5 mL Spot (carbon black) for tattooing. Estimated blood loss was minimal. Impression: - Preparation of the colon was inadequate. - Hemorrhoids found on perianal exam. - Stool in the entire examined colon. - One 19 mm polyp in the sigmoid colon, removed with a hot snare. Resected and retrieved. Injected. Recommendation: - Repeat colonoscopy in 4 months because the bowel preparation was poor. - Continue present medications. Procedure Code(s): --- Professional --- 88734, Colonoscopy, flexible; with removal of tumor(s), polyp(s), or other lesion(s) by snare technique 17523, Colonoscopy, flexible; with directed submucosal injection(s), any substance CPT copyright 2017 [employer]. All rights reserved. The codes documented in this report are preliminary and upon radio presenter review may be revised to meet current compliance requirements. Gucci Valencia DO 09/25/2022 10:42:52 AM This report has been signed electronically. Number of Addenda: 0 Note Initiated On: 09/25/2022 10:11 AM
--- NOTE | 2022-09-25 10:44 | OP.CCLET_ITS ---
09/25/2022 Emmanuel Eagle [address] [place] [address] Re : Colonoscopy procedure for Marika Wallis Dear Dr. Eagle This procedure was performed on September. My impressions and recommendations are as follows: Impressions : - Preparation of the colon was inadequate. - Hemorrhoids found on perianal exam. - Stool in the entire examined colon. - One 19 mm polyp in the sigmoid colon, removed with a hot snare. Resected and retrieved. Injected. Recommendations : - Repeat colonoscopy in 4 months because the bowel preparation was poor. - Continue present medications. My findings are described in the full procedure note, which is enclosed. If I can be of further assistance, please feel free to contact me at . Sincerely, Gucci Valencia, 09/25/2022 10:42:52 AM This report has been signed electronically.
== END 2022-09-25 11:43 | disposition home or self-care (01) ==
LOC: EN 09:00 → AC 09:03
PROVIDERS: PCP Preventive Medicine Occupational Medicine; Referring Provider Preventive Medicine Occupational Medicine; Visit Provider Internal Medicine Gastroenterology
PROC: 0DJD8ZZ Inspection of Lower Intestinal Tract, Via Natural or Artificial Opening Endoscopic (ICD-10-PCS; CPT 45378; principal; 2022-09-25 10:10)
DX: K31.89 Other diseases of stomach and duodenum (principal); K51.90 Ulcerative colitis, unspecified, without complications; K29.70 Gastritis, unspecified, without bleeding; K63.5 Polyp of colon; K64.9 Unspecified hemorrhoids; F32.A Depression, unspecified; F41.9 Anxiety disorder, unspecified; Z79.899 Other long term (current) drug therapy
CPT/HCPCS: 45385; 45381; 43239; 88305; 88313; 88342; J7120; A4648; J2405

== ENCOUNTER 2022-12-15 09:16 | Outpatient (CLI) | payer OTHER, SELFPAY | END 2022-12-15 09:17 | disposition home or self-care (01) | LOC: MEDOUTP 09:16 | PROVIDERS: PCP Preventive Medicine Occupational Medicine; Referring Provider Internal Medicine Gastroenterology; Visit Provider Internal Medicine Gastroenterology | DX: K51.90 Ulcerative colitis, unspecified, without complications (principal) | CPT/HCPCS: 96523 ==

== ENCOUNTER 2023-01-27 13:43 | Emergency (ER) | payer OTHER, SELFPAY ==
[2023-01-27 13:45] VITALS: BP 103/66; PULSE 83; RESP 18; TEMP 36.3; O2SAT 98; BMI 34.6
--- NOTE | 2023-01-27 14:00 | CT_ITS ---
EXAM: CT ABDOMEN AND PELVIS WITHOUT INTRAVENOUS CONTRAST CLINICAL INDICATION: left flank pain TECHNIQUE: Helically acquired images were obtained of the abdomen and pelvis without intravenous contrast. This CT exam was performed using one or more of the following dose reduction techniques: automated exposure control, adjustment of the mA and/or kV according to patient size, and/or use of iterative reconstruction technique. RADIATION DOSE: CTDIvol = 16.59 mGy, DLP = 924.11 mGy-cm COMPARISON: 06/29/2021. FINDINGS: LOWER THORAX: Unremarkable. Lung bases are clear. No cardiomegaly. No significant pericardial effusion. ABDOMEN: LIVER: Unremarkable. Homogeneous. GALLBLADDER AND BILE DUCTS: Cholecystectomy. No intra- or extrahepatic biliary ductal dilation. PANCREAS: Unremarkable. No focal cystic mass. SPLEEN: Unremarkable. Normal size without focal cystic or solid mass. ADRENALS: Unremarkable. No nodules. KIDNEYS AND URETERS: Tiny nonobstructing calculus left kidney. Normal renal size and position. STOMACH AND BOWEL: Very mild wall thickening of the transverse and descending colon. Descending colon is not well-distended. PELVIS: APPENDIX: Normal appendix. BLADDER: Unremarkable. REPRODUCTIVE: Hysterectomy. ABDOMEN and PELVIS: INTRAPERITONEAL SPACE: Unremarkable. No ascites or other fluid collection. No free air. BONES/JOINTS: Unremarkable. No suspicious lytic or blastic abnormality. SOFT TISSUES: Unremarkable. No discrete abdominal or pelvic wall hernia. VASCULATURE: Unremarkable. Abdominal aorta is non-dilated. LYMPH NODES: Unremarkable. No enlarged lymph nodes. CT/Abdomen/Pelvis without Cont IMPRESSION: 1. Very mild wall thickening of the transverse and descending colon. Descending colon is not well-distended. Findings may be due to mild colitis. 2. Cholecystectomy. 3. Tiny nonobstructing calculus left kidney. 4. Hysterectomy. Electronically Signed: Deng Golden MD at 15:11 EST ,
--- NOTE | 2023-01-27 14:04 | EX.ED.DYSGE1 ---
HPI <CARSON Barbosa - Last Filed: 01/27/23 16:59> History of Present Illness Chief Complaint: Flank Pain Narrative Narrative: 52-year-old female with past medical history of ulcerative colitis, remote kidney stone presents with multiple complaints. She states 2 weeks ago she started having chest pain and shortness of breath when going up stairs. Then she states the chest pain is constant and it is not exertional. 1 week ago she developed left flank pain and urinary frequency and burning. She was seen at her workplace clinic and they tested her urine and told her she had a kidney stone. She took Cipro for 5 days without improvement. Her main complaint is the persistent left flank pain despite taking ibuprofen and tramadol. She is nauseous without vomiting. No fever or chills. PFS <CARSON Barbosa - Last Filed: 01/27/23 16:59> [facility] Medical History (Updated 01/27/23 @ 16:32 by CARSON Barbosa) Anemia Anxiety Arthritis Blackout Blood per rectum Degenerative disc disease Depression Difficulty swallowing Fibromyalgia History of echocardiogram History of irregular heartbeat History of renal disease History of stress test Irritable bowel syndrome with diarrhea Leg cramps Sweet syndrome Ulcerative colitis Wears glasses Wears partial dentures Home Medications citalopram 20 mg tablet 40 mg PO DAILY depression 03/22/20 [History Last Taken 03/21/20] lorazepam 0.5 mg tablet 0.5 mg PO TID PRN PRN Anxiety 03/22/20 [History Last Taken 03/22/20] metoprolol succinate 25 mg tablet,extended release 24 hr 25 mg PO DAILY heart 03/22/20 [History Last Taken 09/25/22] tramadol 50 mg tablet 50 mg PO Q6H PRN PRN Pain 1-10 Or Fever 03/22/20 [History Last Taken 09/25/22] promethazine 25 mg tablet 25 mg PO TID PRN nausea and vomiting #21 tabs 06/29/21 [Rx Last Taken Unknown] dicyclomine 20 mg tablet 20 mg PO .qid 08/08/22 [History Last Taken Unknown] budesonide 3 mg capsule,delayed,extended release 9 mg (3 x 3 mg) PO DAILY #270 ea 09/02/22 [Rx Last Taken Unknown] naproxen 500 mg tablet (Naprosyn) 500 mg PO BID PRN pain #20 tabs 01/27/23 [Rx Last Taken Unknown] Allergy/AdvReac Type Severity Reaction Status Date / Time erythromycin base Allergy Severe N/V/D CANT Verified 01/27/23 13:45 [Erythromycin Base] BREAATHE Penicillins Allergy Vomiting Verified 01/27/23 13:45 ondansetron HCl AdvReac Mild GUDINO Verified 01/27/23 13:45 [From Zofran (as hydrochloride)] Family History Grandmother Colon cancer Mother Heart disease Grandfather Stomach cancer Heart disease Surgical History History of section History of cholecystectomy History of extraction of renal calculus History of hysterectomy Social History Smoking Status: Never smoker alcohol intake: never ROS <CARSON Barbosa - Last Filed: 01/27/23 16:59> ROS ED ROS Narrative Constitutional: Negative for fever, chills, malaise. CVS: Positive for chest pain. Negative for palpitations, syncope. Respiratory: Negative for shortness of breath, cough. GI: Positive for nausea negative for abdominal pain, vomiting, diarrhea, constipation, melena, hematochezia. : Positive for dysuria, frequency. EXAM <CARSON Barbosa - Last Filed: 01/27/23 16:59> Physical Exam Narrative Exam Narrative: CONST: Patient sitting in no acute distress. EYES: Normal inspection. NECK: Normal inspection. RESP: No respiratory distress, CTAB. CVS: Regular rate and rhythm, no murmur, no gallop. ABD: Soft and nontender, no guarding or rebound, nondistended. Back: Normal inspection, bilateral CVA tenderness to very light touch. SKIN: Color normal, no rash, warm, dry, intact. EXTREMITIES: Normal appearance, no pedal edema. NEURO: Oriented x4. PSYCH: Normal affect. Const Vital Signs: 01/27/23 13:45 01/27/23 16:53 Temperature 97.4 F L 97.6 F L Temperature Source Temporal Pulse Rate 83 64 Respiratory Rate 18 14 Blood Pressure 103/66 134/78 H Blood Pressure Mean 78 96 Pulse Ox 98 99 Oxygen Delivery Method Room Air <Dr. Armida Frias MD - Last Filed: 01/27/23 16:42> Physical Exam Const Vital Signs: 01/27/23 13:45 01/27/23 16:53 Temperature 97.4 F L 97.6 F L Temperature Source Temporal Pulse Rate 83 64 Respiratory Rate 18 14 Blood Pressure 103/66 134/78 H Blood Pressure Mean 78 96 Pulse Ox 98 99 Oxygen Delivery Method Room Air MDM <CARSON Barbosa - Last Filed: 01/27/23 16:59> [facility] Narrative Medical decision making narrative: Patient with left flank pain and urinary frequency. She completed a course of Cipro recently based on an outpatient urine dip but did not have a known stone. She appears well and nontoxic. Vital signs stable. Normal heart and lung sounds. When I very lightly palpated her abdomen she states she has diffuse tenderness which is chronic from her ulcerative colitis. Abdomen is soft and nonperitoneal. She has left CVA tenderness. CBC and BMP are within normal limits. UA is negative. CT shows very mild wall thickening of the transverse and descending colon consistent with her underlying UC. She is being treated by Dr. Valencia and states her symptoms are stable. There is no acute renal process. Since she also reported 2 weeks of chest pain and EKG and troponin were obtained. She was normal sinus rhythm with no acute ischemic changes and troponin is 4. She can follow-up with her primary care doctor for her ongoing symptoms. Differential: UTI, pyelonephritis, kidney stone, musculoskeletal pain Lab Data Attestation: I reviewed the patient's lab results. Labs: Laboratory Results - last 24 hr 01/27/23 01/27/23 14:30 15:39 WBC 9.1 RBC 4.48 Hgb 12.0 Hct 38.2 MCV 85.3 MCH 26.8 L MCHC 31.4 L RDW Std Deviation 41.2 RDW Coeff of Donya 13.2 Plt Count 277 MPV 9.8 Immature Gran % (Auto) 0.400 Neut % (Auto) 63.7 Lymph % (Auto) 23.3 [place] % (Auto) 9.8 Eos % (Auto) 2.1 Baso % (Auto) 0.7 Absolute Neuts (auto) 5.8 Absolute Lymphs (auto) 2.11 Nucleated RBC % 0 Sodium 139 Potassium 3.7 Chloride 105 Carbon Dioxide 32.0 Anion Gap 2 L BUN 12 Creatinine 0.90 Estim Creat Clear Calc 68.45 Est GFR (MDRD) Af Amer 84 Est GFR (MDRD) Non-Af 70 BUN/Creatinine Ratio 13.3 Glucose 97 Calcium 9.0 Troponin I High Sens 4 Urine Color Yellow Urine Clarity Sl. Cloudy Urine pH 6.5 Ur Specific [place] 1.010 Urine Protein Negative Urine Glucose (UA) Normal Urine Ketones Negative Urine Occult Blood Negative Urine Nitrite Negative Urine Bilirubin Negative Urine Urobilinogen Normal Ur Leukocyte Esterase 25 H Urine RBC 0 SEEN Urine WBC 0-5 SEEN Ur Squamous Epith Cells 0-5 SEEN Urine Bacteria 0 SEEN Urine Mucus 0 SEEN Radiography Diagnostic Testing: Clinical Impression(s) from Imaging Studies Abdomen/Pelvis CT 01/27/23 14:00 IMPRESSION: 1. Very mild wall thickening of the transverse and descending colon. Descending colon is not well-distended. Findings may be due to mild colitis. 2. Cholecystectomy. 3. Tiny nonobstructing calculus left kidney. 4. Hysterectomy. Electronically Signed: Deng Golden MD at 15:11 EST , EKG Initial EKG: Attestation: I personally reviewed and interpreted this EKG as follows: Interpretation: Sinus Rhythm and No Acute Injury Pattern Comments: Normal sinus rhythm at 80 bpm Incomplete right bundle branch block, no STEMI criteria <Dr. Armida Frias MD - Last Filed: 01/27/23 16:42> [facility] Lab Data Labs: Laboratory Results - last 24 hr 01/27/23 01/27/23 14:30 15:39 WBC 9.1 RBC 4.48 Hgb 12.0 Hct 38.2 MCV 85.3 MCH 26.8 L MCHC 31.4 L RDW Std Deviation 41.2 RDW Coeff of Donya 13.2 Plt Count 277 MPV 9.8 Immature Gran % (Auto) 0.400 Neut % (Auto) 63.7 Lymph % (Auto) 23.3 [place] % (Auto) 9.8 Eos % (Auto) 2.1 Baso % (Auto) 0.7 Absolute Neuts (auto) 5.8 Absolute Lymphs (auto) 2.11 Nucleated RBC % 0 Sodium 139 Potassium 3.7 Chloride 105 Carbon Dioxide 32.0 Anion Gap 2 L BUN 12 Creatinine 0.90 Estim Creat Clear Calc 68.45 Est GFR (MDRD) Af Amer 84 Est GFR (MDRD) Non-Af 70 BUN/Creatinine Ratio 13.3 Glucose 97 Calcium 9.0 Troponin I High Sens 4 Urine Color Yellow Urine Clarity Sl. Cloudy Urine pH 6.5 Ur Specific [place] 1.010 Urine Protein Negative Urine Glucose (UA) Normal Urine Ketones Negative Urine Occult Blood Negative Urine Nitrite Negative Urine Bilirubin Negative Urine Urobilinogen Normal Ur Leukocyte Esterase 25 H Urine RBC 0 SEEN Urine WBC 0-5 SEEN Ur Squamous Epith Cells 0-5 SEEN Urine Bacteria 0 SEEN Urine Mucus 0 SEEN Radiography Diagnostic Testing: Clinical Impression(s) from Imaging Studies Abdomen/Pelvis CT 01/27/23 14:00 IMPRESSION: 1. Very mild wall thickening of the transverse and descending colon. Descending colon is not well-distended. Findings may be due to mild colitis. 2. Cholecystectomy. 3. Tiny nonobstructing calculus left kidney. 4. Hysterectomy. Electronically Signed: Deng Golden MD at 15:11 EST , Treatment and Re-Evaluation :: Patient seen and evaluated with [facility]. I personally interviewed and examined the patient. I was involved in all aspects of patient's orders, interpretation of results, and treatment. Patient present secondary to left flank pain. She has been having some left flank pain and dysuria for a while. She was seen at her workplace health clinic who checked her urine. She reportedly had white cells, calcium oxalate crystals, and stones. She was treated with Cipro but does not feel any better. She does report his remote history of a kidney stone. She states that her urine is discolored and orange in color and she does have some dysuria. Patient sitting upright in bed no acute distress. Head and neck examination unremarkable. Heart is regular rate and rhythm. Lung sounds are clear. Abdomen is soft with mild diffuse tenderness. CBC and chemistry studies largely unremarkable with normal renal function. EKG is sinus rhythm with no acute ischemia. Urinalysis reveals no overt signs of infection. No significant hematuria. CT flank reveals a left renal stone and some evidence of constipation. No ureteral stone or evidence of hydro-. Test results discussed with the patient. She will continue supportive care. Return instructions given. Discharge Plan Triage Chief Complaint: Flank Pain ED Midlevel Provider: Diamante Jules ED Provider: Armida Frias Dx/Rx/DC Orders Clinical Impression: Left flank pain, Chest pain Instructions: ED Flank Pain, Uncertain Cause Prescriptions: New naproxen [Naprosyn] 500 mg tablet 500 mg PO BID PRN (Reason: pain) Qty: 20 0RF No Action dicyclomine 20 mg tablet 20 mg PO .qid Patient Comments: take 1 tablet by mouth four times a day for 10 days tramadol 50 MG tablet 50 mg PO Q6H PRN PRN (Reason: Pain 1-10 Or Fever) citalopram 20 MG tablet 40 mg PO DAILY lorazepam 0.5 MG tablet 0.5 mg PO TID PRN PRN (Reason: Anxiety) metoprolol succinate 25 MG tablet extended release 24 hr 25 mg PO DAILY promethazine 25 mg tablet 25 mg PO TID PRN (Reason: nausea and vomiting) Qty: 21 0RF budesonide 3 mg capsule,delayed,extend.release 9 mg PO DAILY Qty: 270 3RF Primary Care Provider: Emmanuel Eagle Referrals: Emmanuel Eagle DO [Primary Care Provider] - Activity Restrictions/Additional Instructions: I added naproxen to your home tramadol for better pain control and recommend you follow-up with your primary care doctor regarding your chest pain and left flank pain. Disposition Disposition: Home, Self Care
[2023-01-27] MEDS: Ketorolac 15 MG/ML Vial IV (14:31)
[2023-01-27 14:44] LABS: Absolute Lymphocyte Count 2.11 X10^3/uL (0.83-4.51); Absolute Neutrophil Count 5.8 X10^3/uL (2.0-7.7); Basophil# 0.06 X10^3/uL; Basophil% 0.7 % (0-1); Eosinophil# 0.19 X10^3/uL; Eosinophils% 2.1 % (0-5); Hematocrit 38.2 % (37-47); Lymphocyte # 2.11 X10^3/ul (0.83-4.51); Lymphocyte % 23.3 % (19-41); Mean Corp Hgb Conc 31.4 g/dL (32-36); Mean Corpuscular Hgb 26.8 pg (27.0-32.0); Mean Corpuscular Volume 85.3 fL (81-99); Mean Platelet Vol. 9.8 fl (6.2-12.0); Monocyte# 0.89 X10^3/uL; Monocyte% 9.8 % (0-10); NRBC Flagged by Analyzer 0 % (0-5); Neutrophil # 5.76 X10^3/uL (2.7-7.7); Neutrophil % 63.7 % (47-70); Platelet Count 277 K/mm3 (150-450); RBC Distribution Width CV 13.2 % (11.6-14.6); RBC Distribution Width SD 41.2 fl (35.1-43.9); Red Blood Count 4.48 M/mm3 (4.2-5.4); White Blood Count 9.1 K/mm3 (4.4-11.0)
[2023-01-27 15:02] LABS: Anion Gap 2 (5-15); BUN 12 mg/dL (7-18); BUN/Creat Ratio 13.3 RATIO (10-20); Chloride 105 mmol/L (98-107); EST Glomerular Filtration Rate 70 mL/min (>60); Est Glom Filt Rate - Afr Amer 84 mL/min (>60); Estimated Creatinine Clearance 68.45 ml/min; Glucose 97 mg/dL (74-106); Potassium 3.7 mmol/L (3.5-5.1); Sodium Level 139 mmol/L (136-145); Troponin-I HS 4 pg/mL (3.0-54.0)
[2023-01-27] MEDS: Morphine 4 MG/ML Syringe IV (15:05)
[2023-01-27] MEDS: proMETHazine 25 MG/ML Syringe 12.5 MG IM (15:35)
[2023-01-27 15:47] LABS: Bacteria 0 SEEN /hpf (None Seen); Mucous, Urine 0 SEEN /hpf (<or=2+); Red Blood Cells-Urine 0 SEEN /hpf (0-5)
[2023-01-27 16:02] LABS: Color, Urine Yellow (Yellow); Glucose, Dipstick Normal (Normal); Ketone-Dipstick Negative (Negative); Leukocyte Esterase-Dipstick 25 /ul (Negative); Nitrite-Dipstick Negative (Negative); Occult Blood-Urine Negative /ul (Negative); Protein-Dipstick Negative (Negative); Urine Bilirubin Dipstick Negative (Negative); Urine Clarity Sl. Cloudy (Clear); Urine Urobilinogen Normal (Normal); Urine pH 6.5 (5.0 - 8.0)
[2023-01-27 16:26] LABS: White Blood Cells 0-5 SEEN /hpf (0-5)
[2023-01-27 16:27] LABS: Squamous Epithelial Cells - UA 0-5 SEEN /hpf (5-10)
[2023-01-27 16:53] VITALS: BP 134/78; PULSE 64; RESP 14; TEMP 36.4; O2SAT 99
[2023-01-27] MEDS: Metoclopramide 10 MG/2 ML Vial 5 MG IV (17:01)
[2023-01-27] MEDS: DiphenhydrAMINE 50 MG/ML Syringe 25 MG IV (17:01)
== END 2023-01-27 18:34 | disposition home or self-care (01) ==
PROVIDERS: Physician Assistant; Emergency Provider Emergency Medicine; PCP Preventive Medicine Occupational Medicine; Visit Provider Emergency Medicine
DX: R10.9 Unspecified abdominal pain (principal); K51.90 Ulcerative colitis, unspecified, without complications; R07.9 Chest pain, unspecified
CPT/HCPCS: 36591; 74176; 80048; 81001; 84484; 85025; 93005; 96372; 96374; 96375; 99284; A4216

== ENCOUNTER 2023-02-27 12:24 | Outpatient (CLI) | payer OTHER, SELFPAY | END 2023-02-27 12:25 | disposition home or self-care (01) | LOC: MEDOUTP 12:24 | PROVIDERS: PCP Preventive Medicine Occupational Medicine; Referring Provider Internal Medicine Gastroenterology; Visit Provider Internal Medicine Gastroenterology | DX: Z00.00 Encounter for general adult medical examination without abnormal findings (principal) ==

== ENCOUNTER 2023-03-03 14:39 | Outpatient (CLI) | payer OTHER, SELFPAY ==
[2023-03-03 15:31] LABS: Erythrocyte Sedimentation Rate 36 mm/hr (0-30)
[2023-03-03 23:12] LABS: Xtra Tube EP Lab EXTRA TUBE
[2023-03-05 17:07] LABS: QNTFERON TB Mitogen Value > 10.00 IU/mL (.); QNTFERON TB Nil Value 0.02 IU/mL (.); QNTFERON TB1+ Ag Value 0.03 IU/mL (.); QNTFERON TB2+ Ag Value 0.02 IU/mL (.); QNTIFERON TB Positive Criteria Negative (Negative)
== END 2023-03-03 14:40 | disposition home or self-care (01) ==
LOC: MEDOUTP 14:39
PROVIDERS: PCP Preventive Medicine Occupational Medicine; Referring Provider Internal Medicine Gastroenterology; Visit Provider Internal Medicine Gastroenterology
DX: K51.90 Ulcerative colitis, unspecified, without complications (principal)
CPT/HCPCS: 36591; 85652; 86140; 86480; A4216

== ENCOUNTER 2023-03-04 22:23 | Emergency (ER) | payer OTHER, SELFPAY ==
[2023-03-04 22:25] VITALS: BP 123/73; PULSE 83; RESP 18; TEMP 36.3; O2SAT 98; BMI 34.0
--- NOTE | 2023-03-04 23:22 | EDS_ITS ---
HPI HPI - GI History of Present Illness Chief Complaint: Nausea/Vomiting/Diarrhea Narrative Narrative: 53-year-old female presenting with abdominal pain. She states he has a history of kidney stones, ulcerative colitis which was diagnosed by Dr. Biggs. Delaney barnett she is by biopsy. She is on budesonide, dicyclomine, Zofran. She states has been having what she believes is a flare for the last 2 weeks. She reports that she had a right lower quadrant ultrasound which showed she either had scar tissue, cancer, or endometriosis. Patient has a surgeon at [facility] who she states was going to do surgery on this but then later reported that she could not have the surgery because she was in a flareup. The patient states that he did not do any imaging or blood work to diagnose a flareup, and went purely on her worried that she was having a flareup She is a history of endometriosis and status post total hysterectomy. Patient states she also had a noncontrast CT done within the last 2 weeks as she was passing a kidney stone. There was no evidence of ulcerative colitis on that CT either. Patient states he called Dr. Valencia's office and she is now established with him and had lab work done yesterday and she believes her inflammatory markers were up. She states she has had spotting blood in her stools. Has a history of this. She has not been on any steroids recently. [facility] Medical History Anemia Anxiety Arthritis Blackout Blood per rectum Degenerative disc disease Depression Difficulty swallowing Fibromyalgia History of echocardiogram History of irregular heartbeat History of renal disease History of stress test Irritable bowel syndrome with diarrhea Leg cramps Sweet syndrome Ulcerative colitis Wears glasses Wears partial dentures Home Medications citalopram 20 mg tablet 40 mg PO DAILY depression 03/22/20 [History Last Taken 03/21/20] lorazepam 0.5 mg tablet 0.5 mg PO TID PRN PRN Anxiety 03/22/20 [History Last Taken 03/22/20] metoprolol succinate 25 mg tablet,extended release 24 hr 25 mg PO DAILY heart 03/22/20 [History Last Taken 09/25/22] tramadol 50 mg tablet 50 mg PO Q6H PRN PRN Pain 1-10 Or Fever 03/22/20 [History Last Taken 09/25/22] promethazine 25 mg tablet 25 mg PO TID PRN nausea and vomiting #21 tabs 06/29/21 [Rx Last Taken Unknown] dicyclomine 20 mg tablet 20 mg PO .qid 08/08/22 [History Last Taken Unknown] budesonide 3 mg capsule,delayed,extended release 9 mg (3 x 3 mg) PO DAILY #270 ea 09/02/22 [Rx Last Taken Unknown] naproxen 500 mg tablet (Naprosyn) 500 mg PO BID PRN pain #20 tabs 01/27/23 [Rx Last Taken Unknown] ciprofloxacin HCl 500 mg tablet (Cipro) 500 mg PO BID 7 days #14 tabs 03/05/23 [Rx Last Taken Unknown] metronidazole 500 mg tablet 500 mg PO TID 7 days #21 tabs 03/05/23 [Rx Last Taken Unknown] prednisone 50 mg tablet 50 mg PO DAILY #7 tabs 03/05/23 [Rx Last Taken Unknown] Allergy/AdvReac Type Severity Reaction Status Date / Time erythromycin base Allergy Severe N/V/D CANT Verified 03/04/23 22:26 [Erythromycin Base] BREAATHE Penicillins Allergy Vomiting Verified 03/04/23 22:26 Family History Grandmother Colon cancer Mother Heart disease Grandfather Stomach cancer Heart disease Surgical History History of section History of cholecystectomy History of extraction of renal calculus History of hysterectomy Social History Smoking Status: Never smoker alcohol intake: never ROS ROS ED Review of Systems ROS Unobtainable: Denies due to encephalopathy Constitutional Constitutional ED: Denies chills, fever(s) or subjective ENT ENT ED: Denies rhinorrhea or sore throat Cardiovascular Cardiovascular: Denies chest pain or palpitations Respiratory/Chest Respiratory/Chest: Denies cough or dyspnea Gastrointestinal Gastrointestinal: Reports abdominal pain, diarrhea and other Details: Small multiple distal ; Denies nausea or vomiting Genitourinary Genitourinary ED: Denies dysuria or hematuria Musculoskeletal Musculoskeletal: Denies arthralgias or back pain Integumentary Denies abscess Neurologic Neurologic: Denies headache(s) or paresthesias Psychiatric Psychiatric: Denies anxiety or depression EXAM Physical Exam Const Vital Signs: 03/04/23 22:25 03/05/23 00:24 Temperature 97.4 F L Temperature Source Temporal Pulse Rate 83 81 Respiratory Rate 18 15 Blood Pressure 123/73 H 113/63 Blood Pressure Mean 89 79 Pulse Ox 98 92 Oxygen Delivery Method Room Air Room Air Positive well nourished General Appearance ED: NAD; Negative for pallor HEENT Reports moist mucous membranes normocephalic Eyes PERRL and EOMs intact bilaterally Neck no lymphadenopathy Resp normal respiratory effort and clear to auscultation bilaterally Auscultation: Negative for rales, rhonchi or wheezes Cardio regular rate and regular rhythm GI Palpation: tender RLQ Back/Spine no CVA tenderness Neuro CN's II-XII intact bilaterally, moves all extremities and no sensory deficits noted Sensorium / Orientation: alert Motor Exam: strength 5/5 throughout Psych mental status grossly normal Skin General Skin Exam: Negative for jaundice or pallor MDM MDM MDM Narrative Medical decision making narrative: Patient presented with right lower quadrant abdominal pain. She reports she had a CT and a right lower quadrant ultrasound performed this month and the right lower quadrant ultrasound showed that she either had a cancerous lesion, endometriosis, scar tissue. She has a surgeon and [facility]. She states he was masha zaidi to do surgery on this area, however decided not to as the patient reported that she was having a flareup. There is no imaging or lab work to diagnose a flareup. Patient has not been treated for a flareup. She continues to have pain and blood in her stool. Differential includes patient presenting with right flank pain. Differential includes colitis, diverticulitis, gastritis, pancreatitis, constipation, UTI, pyelonephritis, renal calculi, ureteral calculi, bowel obstruction, malignancy, dehydration, electrolyte abnormalities, endometriosis. Patient medicated with morphine, Zofran, IV fluids. CBC will be obtained to assess white blood cell count, hemoglobin, platelets. CMP to assess liver function and renal function, electrolytes, glucose. Lipase to assess for pancreatitis. Urinalysis to assess for UTI. CBC shows slight leukocytosis at 12.5. Hemoglobin stable 11.6. Platelets are normal at 262. Renal function electrolytes within normal limits. LFTs are unremarkable. Lipase normal at 17. CT of the abdomen pelvis shows concern for possible UC flare. Discussed with Dr. Friend who recommended prednisone, antibiotics. Will start her on Cipro and Flagyl here in the ED. She was given Solu-Medrol 125 and a prescription for oral prednisone for home. Return precautions were discussed. Impression: 1. Abdominal pain 2. Nausea 3. Ulcerative colitis flare Lab Data Attestation: I reviewed the patient's lab results. Labs: Laboratory Results - last 24 hr 03/04/23 23:55 WBC 12.5 H RBC 4.24 Hgb 11.6 L Hct 37.0 MCV 87.3 MCH 27.4 MCHC 31.4 L RDW Std Deviation 42.9 RDW Coeff of Donya 13.6 Plt Count 262 MPV 9.2 Immature Gran % (Auto) 3.800 H Neut % (Auto) 76.0 H Lymph % (Auto) 11.1 L [place] % (Auto) 7.2 Eos % (Auto) 1.1 Baso % (Auto) 0.8 Absolute Neuts (auto) 9.5 H Absolute Lymphs (auto) 1.39 Nucleated RBC % 0 Sodium 138 Potassium 3.9 Chloride 103 Carbon Dioxide 30.0 Anion Gap 5 BUN 13 Creatinine 0.78 Estim Creat Clear Calc 81.11 Est GFR (MDRD) Af Amer 99 Est GFR (MDRD) Non-Af 82 BUN/Creatinine Ratio 16.7 Glucose 132 H Calcium 8.9 Total Bilirubin 0.20 AST 11 L ALT 14 Alkaline Phosphatase 136 H Total Protein 7.2 Albumin 2.9 L Globulin 4.3 H Albumin/Globulin Ratio 0.7 L Lipase 17 Radiography Diagnostic Testing: Clinical Impression(s) from Imaging Studies Abdomen/Pelvis CT 03/05/23 23:21 IMPRESSION: Diffuse loss of haustra along the colon with mild wall thickening or surrounding inflammation along the descending colon concerning for acute on chronic inflammatory bowel disease such as ulcerative colitis. Chronic laxative use with mild acute descending colonic colitis could look similar. Electronically Signed: Octaviano Escoto MD at 1:26 EST , Discharge Plan Triage Chief Complaint: Nausea/Vomiting/Diarrhea ED Provider: Haroon Araujo Dx/Rx/DC Orders Instructions: ED Ulcerative Colitis Prescriptions: New prednisone 50 mg tablet 50 mg PO DAILY Qty: 7 0RF metronidazole 500 mg tablet 500 mg PO TID 7 Days Qty: 21 0RF ciprofloxacin HCl [Cipro] 500 mg tablet 500 mg PO BID 7 Days Qty: 14 0RF No Action dicyclomine 20 mg tablet 20 mg PO .qid Patient Comments: take 1 tablet by mouth four times a day for 10 days tramadol 50 MG tablet 50 mg PO Q6H PRN PRN (Reason: Pain 1-10 Or Fever) citalopram 20 MG tablet 40 mg PO DAILY lorazepam 0.5 MG tablet 0.5 mg PO TID PRN PRN (Reason: Anxiety) metoprolol succinate 25 MG tablet extended release 24 hr 25 mg PO DAILY promethazine 25 mg tablet 25 mg PO TID PRN (Reason: nausea and vomiting) Qty: 21 0RF naproxen [Naprosyn] 500 mg tablet 500 mg PO BID PRN (Reason: pain) Qty: 20 0RF budesonide 3 mg capsule,delayed,extend.release 9 mg PO DAILY Qty: 270 3RF Primary Care Provider: Emmanuel Eagle Referrals: Gucci Valencia DO [Med Staff - Active Staff] - 3-5 Days Emmanuel Eagle DO [Primary Care Provider] - Disposition Disposition: Home, Self Care
[2023-03-05] MEDS: Ondansetron 4 MG/2 ML Vial IV (00:07)
[2023-03-05 00:08] LABS: Absolute Lymphocyte Count 1.39 X10^3/uL (0.83-4.51); Absolute Neutrophil Count 9.5 X10^3/uL (2.0-7.7); Basophil% 0.8 % (0-1); Eosinophil# 0.14 X10^3/uL; Eosinophils% 1.1 % (0-5); Hemoglobin 11.6 g/dL (12.0-15.0); Lymphocyte # 1.39 X10^3/ul (0.83-4.51); Lymphocyte % 11.1 % (19-41); Mean Corp Hgb Conc 31.4 g/dL (32-36); Mean Corpuscular Hgb 27.4 pg (27.0-32.0); Mean Corpuscular Volume 87.3 fL (81-99); Mean Platelet Vol. 9.2 fl (6.2-12.0); Monocyte% 7.2 % (0-10); NRBC Flagged by Analyzer 0 % (0-5); Neutrophil # 9.48 X10^3/uL (2.7-7.7); Platelet Count 262 K/mm3 (150-450); RBC Distribution Width CV 13.6 % (11.6-14.6); RBC Distribution Width SD 42.9 fl (35.1-43.9); Red Blood Count 4.24 M/mm3 (4.2-5.4); White Blood Count 12.5 K/mm3 (4.4-11.0)
[2023-03-05] MEDS: Morphine 4 MG/ML Syringe IV (00:08)
[2023-03-05] MEDS: 0.9% Normal Saline (1000mL) 1,000 ML 1000 ML IV (00:10)
--- OUTSIDE RECORDS SUMMARY | 2023-03-05 00:21 | XMS RPT_ITS | CCD ---
Author Name Unknown Address [address] [place] [address] Organization [facility] Care Team Providers Care Planning Associate Name Role Phone MICHELLE ALVA DO Primary Care Physician [phone] ELIEZER CHRISTIAN, AVELINA Nunn Attending Sonya ALVA DO, MICHELLE Primary Care Unavailable ARTIE ALDANA, MICHELLE Primary Care Unavailable ELIEZER CHRISTIAN, AVELINA Nunn Attending Sonya ALVA DO, MICHELLE Primary Care Unavailable SHARON BEBA HINDS Attending Ally CHRISTIAN, AVELINA Nunn Attending Sonya ALVA DO, MICHELLE Primary Care Unavailable ARTIE ALDANA, MICHELLE Primary Care Unavailable FLOYD RILEY MD Attending Chuck Leroy DO, MICHELLE Primary Care Unavailable FLOYD RILEY MD Attending Chuck carlson Allergies Allergy Classification Reported Allergen(s) Allergy Type Date of Onset Reaction(s) Facility (10 sources) busPIRone; Translations: [buspirone] Drug Allergy 11-27-2020 Diarrhea (finding) [facility] Work Phone: (10 sources) Clindamycin; Translations: [clindamycin] Drug Allergy 12-08-2019 Nausea (finding) [facility] Work Phone: (10 sources) Erythromycin; Translations: [erythromycin] Drug Allergy VOMITING [facility] Work Phone: (10 sources) Ondansetron; Translations: [ondansetron] Drug Allergy HEADACHE, DOESN'T WORK [facility] Work Phone: Medications Current Medications Medication Drug Class(es) Dates Sig (Normalized) Sig (Original) budesonide 3 mg delayed release oral capsule (2 sources) Corticosteroid Start: 07-17-2022 budesonide 3 mg oral delayed release capsule Dose : 6 mg = 2 cap(s), Oral, qAM, # 180 cap(s), 0 Refill(s) Start Date: 07/17/22 Status: Ordered citalopram 20 mg oral tablet (10 sources) Serotonin Reuptake Inhibitor Start: 10-30-2022 citalopram 20 mg oral tablet Dose : 40 mg = 2 tab(s), Oral, qDay, # 90 tab(s), 3 Refill(s), Pharmacy: [id number] #[id number], 169.5, cm, 10/30/22 8:03:00 EDT, Height, kg, 10/30/22 8:03:00 EDT, Dosing Weight Start Date: 10/30/22 Status: Ordered Completed/Discontinued Medications Medication Drug Class(es) Dates Sig (Normalized) Sig (Original) dicyclomine hydrochloride 20 mg oral tablet (10 sources) Anticholinergic Start: 10-30-2022 End: 11-29-2022 dicyclomine 20 mg oral tablet Dose : 20 mg = 1 tab(s), Oral, QID, # 40 tab(s), 2 Refill(s), Pharmacy: [id number] #[id number], 169.5, cm, 10/30/22 8:03:00 EDT, Height, kg, 10/30/22 8:03:00 EDT, Dosing Weight Start Date: 10/30/22 Stop Date: 11/29/22 Status: Ordered Problems Active Problems Problem Classification Problem Date Documented Date Episodic/Chronic Abdominal pain (7 sources) Chronic abdominal pain 11-09-2018 Episodic Anxiety disorders (10 sources) Anxiety state 11-09-2018 Chronic Chronic obstructive pulmonary disease and bronchiectasis (2 sources) Bronchitis 03-04-2022 Episodic Deficiency and other anemia (10 sources) Anemia 02-19-2017 Episodic Genitourinary symptoms and ill-defined conditions (3 sources) Chronic urinary bladder pain 04-22-2022 Chronic Genitourinary symptoms and ill-defined conditions (2 sources) Dysuria; Translations: [Dysuria] Onset: 11-19-2022 Episodic Heart valve disorders (10 sources) Mitral valve prolapse 01-26-2018 Chronic Immunity disorders (2 sources) Patient immunocompromised 08-15-2021 Chronic Malaise and fatigue (7 sources) Fatigue 02-19-2017 Episodic Menopausal disorders (10 sources) Atrophic vaginitis 05-30-2019 Chronic Menstrual disorders (10 sources) Menorrhagia 01-26-2018 Chronic Mycoses (8 sources) Tinea corporis 10-07-2019 Episodic Nausea and vomiting (7 sources) Nausea 03-03-2019 Episodic Open wounds of extremities (1 source) Laceration of finger without foreign body; Translations: [Laceration without foreign body of unspecified finger without damage to nail, initial encounter] Onset: 01-09-2021 Episodic Other acquired deformities (6 sources) Mallet finger 05-31-2021 Episodic Other connective tissue disease (10 sources) 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 Other connective tissue disease (6 sources) Foot pain 02-26-2021 Episodic Other connective tissue disease (4 sources) Pain in finger 05-27-2021 Episodic Other ear and sense organ disorders (10 sources) Chronic otitis externa of left external auditory canal 05-29-2020 Chronic Other ear and sense organ disorders (7 sources) Otitis externa 11-14-2019 Chronic Other inflammatory condition of skin (4 sources) Acute febrile neutrophilic dermatosis 03-04-2022 Episodic Other non-traumatic joint disorders (10 sources) Multiple joint pain 02-17-2020 Episodic Other conditions (6 sources) Infantile colic 05-30-2019 Episodic Regional enteritis and ulcerative colitis (11 sources) Ulcerative colitis 01-18-2020 Chronic Residual codes; unclassified (1 source) Pain; Translations: [Pain, unspecified] Onset: 06-01-2021 Episodic Rheumatoid arthritis and related disease (10 sources) Rheumatoid arthritis; Translations: [Rheumatoid arthritis of multiple joints] 10-07-2019 Chronic Spondylosis; intervertebral disc disorders; other back problems (10 sources) Degeneration of cervical intervertebral disc 09-02-2017 Chronic Urinary tract infections (11 sources) Recurrent urinary tract infection; Translations: [Bacterial urinary infection] 01-26-2018 Episodic Viral infection (8 sources) Disease caused by 2019-nCoV 02-26-2021 Past or Other Problems Problem Classification Problem Date Documented Da te Episodic/Chronic Inflammatory diseases of female pelvic organs (2 sources) Acute vaginitis; Translations: [Acute vaginitis] Onset: 06-04-2022 Episodic Residual codes; unclassified (2 sources) Other general symptoms and signs; Translations: [Other general symptoms and signs] Onset: 03-25-2022 Episodic Results Test Name Value Interpretation Reference Range Facil ity Vital Signs Date Time Vital Sign Value Performing Clinician Faci jared 09-13-2021 12:50-0400 Diastolic blood pressure 79 mm[Hg] ANGELA ACOSTA MD [facility] 09-13-2021 12:50-0400 Heart rate 77 /min ANGELA ACOSTA MD [facility] 09-13-2021 12:50-0400 Respiratory rate 16 /min ANGELA ACOSTA MD [facility] 09-13-2021 12:50-0400 Systolic blood pressure 124 mm[Hg] ANGELA ACOSTA MD [facility] 09-13-2021 11:08-0400 Diastolic blood pressure 79 mm[Hg] ANGELA ACOSTA MD [facility] 09-13-2021 11:08-0400 Heart rate 75 /min ANGELA ACOSTA MD [facility] 09-13-2021 11:08-0400 Respiratory rate 16 /min ANGELA ACOSTA MD [facility] 09-13-2021 11:08-0400 Systolic blood pressure 103 mm[Hg] ANGELA ACOSTA MD [facility] 09-13-2021 08:51-0400 Body height 167 cm ANGELA ACOSTA MD [facility] 09-13-2021 08:51-0400 Body temperature 98.24 [degF] ANGELA ACOSTA MD [facility] 09-13-2021 08:51-0400 Body weight 98.2 kg ANGELA ACOSTA MD [facility] 09-13-2021 08:51-0400 diastolic 70 mm[Hg] ANGELA ACOSTA MD [facility] 09-13-2021 08:51-0400 Heart rate 88 /min ANGELA ACOSTA MD [facility] 09-13-2021 08:51-0400 Respiratory rate 16 /min ANGELA ACOSTA MD [facility] 09-13-2021 08:51-0400 systolic 117 mm[Hg] ANGELA ACOSTA MD [facility] 06-01-2021 00:58-0400 Body height 167.[address] MAXIMINO DILLON MD [facility] 06-01-2021 00:58-0400 Body temperature 98.06 [degF] DR MAXIMINO DILLON MD [facility] 06-01-2021 00:58-0400 Body weight [address] MAXIMINO DILLON MD [facility] 06-01-2021 00:58-0400 Diastolic blood pressure 85 mm[Hg] DR MAXIMINO DILLON MD [facility] 06-01-2021 00:58-0400 Heart rate 89 /min DR MAXIMINO DILLON MD [facility] 06-01-2021 00:58-0400 Respiratory rate 18 /min DR MAXIMINO DILLON MD [facility] 06-01-2021 00:58-0400 Systolic blood pressure 143 mm[Hg] DR MAXIMINO DILLON MD [facility] 01-09-2021 11:37-0400 Body temperature 98.6 [degF] MARY PAPPAS MD [facility] 01-09-2021 11:37-0400 Body weight 97.3 kg MARY PAPPAS MD [facility] 01-09-2021 11:37-0400 Diastolic blood pressure 88 mm[Hg] MARY PAPPAS MD [facility] 01-09-2021 11:37-0400 Heart rate 89 /min MARY PAPPAS MD [facility] 01-09-2021 11:37-0400 Respiratory rate 16 /min MARY PAPPAS MD [facility] 01-09-2021 11:37-0400 Systolic blood pressure 138 mm[Hg] MARY PAPPAS MD [facility] Encounters Encounter Date Encounter Type Care Provider Facility Start: 02-13-2023 End: 02-14-2023 [facility] Facility:A Start: 01-14-2023 End: 01-15-2023 ambulatory MICHELLE BARTLETTSAElaine ALDANA Facility:B Start: 01-14-2023 End: 01-14-2023 Patient encounter procedure AVELINA MARTINS [employer] Start: 11-19-2022 End: 11-24-2022 ambulatory AVELINAJURGEN MARTINS [employer]OC[employer] TE[employer]ER[facility] Facility:B Start: 11-19-2022 End: 11-23-2022 Outreach Lab AVELINA MARTINS [employer] Start: 06-04-2022 End: 06-09-2022 ambulatory AVELINAJURGEN MARTINS [employer]OC[employer] TE[employer]ER[facility] Facility:B Start: 06-04-2022 End: 06-08-2022 Outreach Lab AVELINA MARTINS [employer] TE[employer] Start: 03-25-2022 End: 03-30-2022 ambulatory MICHELLE ALVA DO Facility:B Start: 03-25-2022 End: 03-29-2022 Outreach Lab BEBA RAMOS [employer]OCAL TE[employer] ADMINISTR[facility] Start: 09-13-2021 End: 09-13-2021 Emergency department patient visit ANGELA ACOSTA MD [facility] Start: 06-01-2021 End: 06-01-2021 Emergency department patient visit DR MAXIMINO DILLON MD [facility] Start: 05-28-2021 End: 05-28-2021 Patient encounter procedure MICHELLE BRISCOEElaine ALDANA [facility] Start: 02-26-2021 End: 02-26-2021 Patient encounter procedure MICHELLE ARTIE [facility] Start: 02-07-2021 End: 02-11-2021 Outreach Lab BEBA RAMOS VOCAL TE[employer] ADMINIST[employer] [facility] Start: 01-09-2021 End: 01-09-2021 Emergency department patient visit MARY PAPPAS MD [facility] Procedures Date Procedure Procedure Detail Performing Clinician Start: 11-05-2018 Colonoscopy MARY ENG MD Start: 09-11-2017 Dilation and curetta ge of uterus MARY PAPPAS MD Start: 09-11-2017 Hysteroscopy MARY ENG MD Start: 09-07-2015 Catheter injection p ort (physical object) MARY PAPPAS MD Immunizations Immunization Date Immunization Notes Care Provider Kehinde yoder 01-09-2021 tetanus toxoid, redu farrah diphtheria toxoid, and acellular pertussis vaccine, adsorbed; Translations: [Boostrix (Tdap)] MARY PAPPAS MD [facility] 12-07-2016 influenza virus vaccine, unspecified formulation MARY PAPPAS MD [facility] 12-19-2015 influenza virus vaccine, unspecified formulation MARY PAPPAS MD [facility] Payers Date Payer Category Payer Private Health Insurance [id number] 2022 Unknown [id number] 2022 Self-pay 1970 Unknown [id number] [id number] 1970 Unknown [id number] [id number] [id number] 1970 Unknown [id number] 2.16.8 [id number] 1970 Unknown [id number] 2.16.8 [id number] 1970 Unknown [id number] 2.16.8 [id number] 1970 Unknown [id number] 2.16.8 [id number] Social History Date Type Detail Facility Start: 11-09-2018 End: 02-26-2021 Never smoked tobacco (finding) [facility] Sex Assigned At Female [facility] Functional Status Date Assessment Result Facility 09-13-2021 Functional Status Up to bathroom [facility] 09-13-2021 Functional Status [facility] 09-13-2021 Functional Status Standard Safet y ID band on, Allergy Band on, Call device within reach, Bed in low position, Wheels locked [facility] Mental Status Date Assessment Result Facility 09-13-2021 Mental Status Orientation Oriented x 4 [facility] 09-13-2021 Mental Status [facility] Clinical Notes 10-13-2020 to 11-20-2022 LaboratoryRadiologyLaboratoryRadiologyLaboratoryLaboratoryLaboratoryRadiologyRad iology Note Date & Type Note Facility 11-20-2022 Note . MICRO - Microbiology PROCEDURE: Urine Culture [*1] SOURCE: Urine BODY SITE: COLLECTED DATE/TIME: 11/19/2022 16:29 EDT RECEIVED DATE/TIME: 11/19/2022 19:27 EDT START DATE/TIME: 11/19/2022 19:27 EDT FREE TEXT SOURCE: FINAL REPORTS Final Report [] Verified Date/Time/Personnel: 11/20/2022 14:50 EDT >100,000 cfu/ml Mixed growth consistent with normal urogenital jess. Performing Locations *1: This test was performed at: [address], [facility] ([place]) 03-27-2022 Note . MICRO - Microbiology PROCEDURE: Throat Culture [O1 *1] SOURCE: Throat BODY SITE: COLLECTED DATE/TIME: 03/25/2022 12:17 EST RECEIVED DATE/TIME: 03/25/2022 21:22 EST START DATE/TIME: 03/25/2022 21:22 EST FREE TEXT SOURCE: FINAL REPORTS Final Report [] Verified Date/Time/Personnel: 03/27/2022 07:28 EST Normal throat jess present Sensitivity Testing: Not Indicated PRELIMINARY REPORTS Preliminary Report [] Verified Date/Time/Personnel: 03/26/2022 09:23 EST Negative for upper respiratory pathogens at 24 hours. Order Comments O1: Throat Culture received eswab, not dual culturette 03/25/2022 21:22:51 EST SLR Performing Locations *1: This test was performed at: [address], [facility] , [facility] ([place]) 03-25-2022 SARS-CoV-2 (COVID-19) RNA ESTEPHANIE+probe Ql (Nph) Negative *NA* (03/25/22 12:17 PM) AO Auto Urine SS 09-13-2021 Hospital Discharge instructions Patient Education 09/13/2021 12:20:31 Abdominal Pain Abdominal Pain Abdominal pain is pain in the stomach or belly area. Everyone has this pain from time to time. In many cases it goes away on its own. But abdominal pain can sometimes be due to a serious problem, such as appendicitis. So it s important to know when to get help. Causes of abdominal pain There are many possible causes of abdominal pain. Common causes in adults include: Constipation, diarrhea, or gas Stomach acid flowing back up into the esophagus (acid reflux or heartburn) Severe acid reflux, called GERD (gastroesophageal reflux disease) A sore in the lining of the stomach or small intestine (peptic ulcer) Inflammation of the gallbladder, liver, or pancreas Gallstones or kidney stones Appendicitis Intestinal blockage An internal organ pushing through a muscle or other tissue (hernia) Urinary tract infections In women, menstrual cramps, fibroids, ovarian cysts, pelvic inflammatory disease, or endometriosis Inflammation or infection of the intestines, including Crohn's disease and ulcerative colitis Irritable bowel syndrome Diagnosing the cause of abdominal pain Your healthcare provider will give you a physical exam help find the cause of your pain. If needed, you will have tests. Belly pain has many possible causes. So it can be hard to find the reason for your pain. Giving details about your pain can help. Tell your provider where and when you feel the pain, and what makes it better or worse. Also let your provider know if you have other symptoms such as: Fever Tiredness Upset stomach (nausea) Vomiting Changes in bathroom habits Blood in the stool or black, tarry stool Weight loss that you can't explain (involuntary weight loss?) Also report any family history of stomach or intestinal problems, or cancers. Tell your provider about all your alcohol use and drug use. Tell your provider about all medicines you use, including herbs, vitamins, and supplements. Treating abdominal pain Some causes of pain need emergency medical treatment right away. These include appendicitis or a bowel blockage. Other problems can be treated with rest, fluids, or medicines. Your healthcare provider can give you specific instructions for treatment or self-care based on what is causing your pain. If you have vomiting or diarrhea, sip water or other clear fluids. When you are ready to eat solid foods again, start with small amounts of sozo-nj-tfywwq, low-fat foods. These include apple sauce, toast, or crackers. When to get medical care Call 911 or go to the hospital right away if you: Can t pass stool and are vomiting Are vomiting blood or have bloody diarrhea or black, tarry diarrhea Have chest, neck, or shoulder pain Feel like you might pass out Have pain in your shoulder blades with nausea Have sudden, severe belly pain Have new, severe pain unlike any you have felt before Have a belly that is rigid, hard, and hurts to touch Call your healthcare provider if you have: Pain for more than 5 days Bloating for more than 2 days Diarrhea for more than 5 days A fever of 100.4 F (38 C) or higher, or as directed by your healthcare provider Pain that gets worse Weight loss for no reason Continued lack of appetite Blood in your stool How to prevent abdominal pain Here are some tips to help prevent abdominal pain: Eat smaller amounts of food at each meal. Don't eat greasy, fried, or other high-fat foods. Don't eat foods that give you gas. Exercise regularly. Drink plenty of fluids. To help prevent GERD symptoms: Quit smoking. Reduce alcohol and foods that increase stomach acid. Don't use aspirin or hooi-wnb-wmzbeoi pain and fever medicines, if possible. This includes nonsteroidal anti-inflammatory drugs (NSAIDs). Lose excess weight. Finish eating at least 2 hours before you go to bed or lie down. Raise the head of your bed. [id number] [employer]. [address] [place] [address]. All rights reserved. This information is not intended as a substitute for professional medical care. Always follow your healthcare professional's instructions. Follow Up Care 09/13/2021 08:42:16 With:MICHELLE ALVA DO Address: [address] [place] [phone] When:2-[address] [facility] 09-13-2021 Note Discharge Instructions Thank you for allowing [facility] to assist you with your healthcare needs. The following is important discharge information regarding your hospital visit. Diagnosis from Today's Visit Abdominal pain What to Do Next Instructions from Your Care Team No qualifying data available. Post Acute Orders No qualifying data available. You Need to Schedule the Following Appointments Follow Up with MICHELLE ALVA DO When Within 2-4 days Where: [address] [place] [phone] Allergies clindamycin (Nausea) BuSpar (Diarrhea) Percocet (Nausea) Zofran (HEADACHE, DOESN'T WORK) erythromycin (VOMITING) penicillin (VOMITING, SWELLING) Medications Please ask your primary doctor or pharmacist before taking any other medication not listed, including over the counter drugs, herbal medications, vitamins and or supplements as they may interact with your home medications. What How Much When Why Instructions Last Dose Unchanged citalopram (citalopram 20 mg oral tablet) 2 tab(s) by mouth Once a day Unchanged dicyclomine (dicyclomine 10 mg oral capsule) 1 cap by mouth Three (3) times a day as needed for abdominal pain/diarrhea Chronic abdominal pain Unchanged estradiol (estradiol 0.5 mg oral tablet) 1 tab(s) by mouth Once a day Unchanged ferrous sulfate (IRON (ferrous sulfate 325 mg) 65 mg oral tablet) 1 tab(s) by mouth Twice daily with meals Unchanged fluticasone-salmeterol (fluticasone-salmeterol 250 mcg-50 mcg inhalation powder) 1 puff(s) by inhalation Two (2) times a day Post-COVID syndrome Unchanged LORazepam (LORazepam 0.5 mg oral tablet) 1 tab(s) by mouth Three (3) times a day as needed for as needed for anxiety Anxiety state Duration: 10 Days Unchanged metoprolol (Metoprolol Succinate ER 25 mg oral TABLET extended release) 1 tab(s) by mouth Once a day Duration: 90 Days Unchanged progesterone (progesterone 100 mg oral capsule (NF)) 4 cap by mouth Once a day Duration: 14 Days Unchanged promethazine (promethazine 25 mg oral tablet) 1 tab(s) by mouth Every 6 hours as needed for nausea Duration: 30 Days one time refill in absence of PCP Unchanged traMADol (traMADol 50 mg oral tablet) 1 tab(s) by mouth Every 6 hours Chronic pain Duration: 30 Days Please take this list to your next doctor s visit. Bring all medications you take, including over the counter medications, herbals and other supplements with you to your doctor s visit. Patients and families are reminded to discard old lists and to update any records with all medication providers or retail pharmacies. Education Materials Abdominal Pain Abdominal pain is pain in the stomach or belly area. Everyone has this pain from time to time. In many cases it goes away on its own. But abdominal pain can sometimes be due to a serious problem, such as appendicitis. So it s important to know when to get help. Causes of abdominal pain There are many possible causes of abdominal pain. Common causes in adults include: Constipation, diarrhea, or gas Stomach acid flowing back up into the esophagus (acid reflux or heartburn) Severe acid reflux, called GERD (gastroesophageal reflux disease) A sore in the lining of the stomach or small intestine (peptic ulcer) Inflammation of the gallbladder, liver, or pancreas Gallstones or kidney stones Appendicitis Intestinal blockage An internal organ pushing through a muscle or other tissue (hernia) Urinary tract infections In women, menstrual cramps, fibroids, ovarian cysts, pelvic inflammatory disease, or endometriosis Inflammation or infection of the intestines, including Crohn's disease and ulcerative colitis Irritable bowel syndrome Diagnosing the cause of abdominal pain Your healthcare provider will give you a physical exam help find the cause of your pain. If needed, you will have tests. Belly pain has many possible causes. So it can be hard to find the reason for your pain. Giving details about your pain can help. Tell your provider where and when you feel the pain, and what makes it better or worse. Also let your provider know if you have other symptoms such as: Fever Tiredness Upset stomach (nausea) Vomiting Changes in bathroom habits Blood in the stool or black, tarry stool Weight loss that you can't explain (involuntary weight loss?) Also report any family history of stomach or intestinal problems, or cancers. Tell your provider about all your alcohol use and drug use. Tell your provider about all medicines you use, including herbs, vitamins, and supplements. Treating abdominal pain Some causes of pain need emergency medical treatment right away. These include appendicitis or a bowel blockage. Other problems can be treated with rest, fluids, or medicines. Your healthcare provider can give you specific instructions for treatment or self-care based on what is causing your pain. If you have vomiting or diarrhea, sip water or other clear fluids. When you are ready to eat solid foods again, start with small amounts of pmrp-hn-kxpqft, low-fat foods. These include apple sauce, toast, or crackers. When to get medical care Call 911 or go to the hospital right away if you: Can t pass stool and are vomiting Are vomiting blood or have bloody diarrhea or black, tarry diarrhea Have chest, neck, or shoulder pain Feel like you might pass out Have pain in your shoulder blades with nausea Have sudden, severe belly pain Have new, severe pain unlike any you have felt before Have a belly that is rigid, hard, and hurts to touch Call your healthcare provider if you have: Pain for more than 5 days Bloating for more than 2 days Diarrhea for more than 5 days A fever of 100.4 F (38 C) or higher, or as directed by your healthcare provider Pain that gets worse Weight loss for no reason Continued lack of appetite Blood in your stool How to prevent abdominal pain Here are some tips to help prevent abdominal pain: Eat smaller amounts of food at each meal. Don't eat greasy, fried, or other high-fat foods. Don't eat foods that give you gas. Exercise regularly. Drink plenty of fluids. To help prevent GERD symptoms: Quit smoking. Reduce alcohol and foods that increase stomach acid. Don't use aspirin or fsvt-kva-jelbpjz pain and fever medicines, if possible. This includes nonsteroidal anti-inflammatory drugs (NSAIDs). Lose excess weight. Finish eating at least 2 hours before you go to bed or lie down. Raise the head of your bed. [id number] [employer] [address] [place] [address]. All rights reserved. This information is not intended as a substitute for professional medical care. Always follow your healthcare professional's instructions. Additional Information VACCINATE! IT SAVES LIVES! Members of the community who have not yet received the COVID-19 vaccine and would like to receive it can visit one of [facility] vaccine clinics. There are many vaccine clinic locations within the [facility]. For locations and available times, please visit [email or web address]. It is important to note that some COVID mobile vaccine clinics are held outdoors and may be canceled in rainy or stormy conditions. To learn more about pediatric vaccinations (ages 5-11), we invite you to visit the [facility] webpage. [email or web address] To learn more about the COVID-19 vaccine, we invite you to visit the [facility] website for a list of frequently asked questions. [email or web address] [facility] Patient Portal Access Instructions: Stay connected with your healthcare team and access your personal medical information anytime with the [facility] Patient Portal. If you would like a full copy of your medical records please contact the [facility] Medical Records Department Thursday through Thursday between 8a.m. and 4:30p.m. Please follow the directions below to access the portal: 1.Access the email account you provided upon registration to the [facility].2.Look for an invitation email from [facility].3.Open the email and access the invitation link: Accept Invitation to [facility]4.Fill in the required rosario to create your account. Sign into [email or web address] with your username and password that you created in the above steps to stay up to date. You can then view a summary of results, a summary of your visits, and the ability to download your summaries to your computer or send the information securely to a physician. Remember that your healthcare information is confidential, so carefully consider who you will allow to register on the [facility] Patient Portal for access to your information. You can also access the [facility] Patient Portal on the [employer]. Simply click on Health Records under Health Data and then click on the [facility] logo. HOW TO SAFELY DISPOSE OF PRESCRIPTION MEDICATIONS Please use one of the following methods to safely dispose of your unused medications. 1.Use a drug disposal kit: the drug disposal pouch allows you to safely discard your old and unused drugs. Ask your nurse to give you one when you are discharged.2.Visit a local take-back location: Many local pharmacies and police departments have programs that collect old and unwanted prescription drugs. Call your local pharmacy or go to http://bit.Pokelabo/8I5Oa7b to find one close to you.3.Make use of household items: Use cat litter or old coffee grounds to dispose medications if other options are not available. Mix your drugs with these household products, seal them in an airtight container and throw it into the garbage. Call [facility]: [phone] to be sure your drugs can be disposed of in this way. Some medicines may require a different approach.4.Never flush your medications down the toilet. IF YOU HAVE BEEN PRESCRIBED AN OPIOIDS FOR PAIN If you have been prescribed an opioid (such as hydrocodone, oxycodone or morphine), it is critical to understand the possible side effects and risks of opioid pain medications. Even when taken as directed, opioids can have several side effects including: Tolerance, meaning you might need to take more of a medication for the same pain relief. Nausea, vomiting and/or constipation. Sleepiness, dizziness, dry mouth, confusion, depression or itching. Physical dependence, meaning you have withdrawal symptoms when a medication is stopped ? this can develop within a few days. KNOW YOUR RESPONSIBILITIES It is important to know exactly how much and how often to take the opioid pain medications you are prescribed. Never take opioids in higher amounts or more often than prescribed. Do not combine opioids with alcohol or other drugs that cause drowsiness, such as benzodiazepines, also known as benzos, including diazepam and alprazolam, muscle relaxants or sleep aids. Never sell or share prescription opioids. This is illegal. Store opioids in a secure place and out of reach of others (including children, family, friends and visitors). The last page(s) of this document has been signed and retained as a CHART COPY Signatures Patient Education Materials Abdominal Pain Medication Leaflets My discharge plan and instructions have been reviewed and explained to me and ICONY SARAH J understand my current condition and have read and understand these discharge instructions. I have received a written copy of the plan/instructions. If I have questions, I am aware that I should contact my doctor. Patient/[place] Signature: Date/Time: Relationship to Patient: Witness Name/Signature: Date/Time: [facility] 09-13-2021 Note ORIGINAL EXAMINATION: CT OF THE ABDOMEN AND PELVIS WITH CONTRAST 09/13/2021 11:44 am TECHNIQUE: CT of the abdomen and pelvis was performed with the administration of intravenous contrast. Multiplanar reformatted images are provided for review. Automated exposure control, iterative reconstruction, and/or weight based adjustment of the mA/kV was utilized to reduce the radiation dose to as low as reasonably achievable. COMPARISON: March 02, 2018 HISTORY: ORDERING SYSTEM PROVIDED HISTORY: Reason for Exam: Abd pain FINDINGS: No osseous abnormality. The lung bases are unremarkable. Cholecystectomy clips are present. No focal liver lesions seen. The spleen, adrenal glands and pancreas are unremarkable. There are small scattered areas of renal scarring present and there are small renal cysts as well. No other kidney abnormality. No adenopathy, free air or free fluid is visible. No GI tract abnormality is visible. The appendix is normal. No additional contributory abnormality seen. IMPRESSION: No acute abnormality identified on this exam. Interpreted by: Deng Holland MD Preliminary Report By: Deng Holland MD Electronically signed By Deng Holland MD Dictated Date: 09/13/2021 11:49:16 AM Prelim Date: 09/13/2021 11:53:18 AM Sign Date: 09/13/2021 11:53:18 AM Ordering Provider: [facility] 09-13-2021 Note ORIGINAL EXAMINATION: CT OF THE ABDOMEN AND PELVIS WITH CONTRAST 09/13/2021 11:44 am TECHNIQUE: CT of the abdomen and pelvis was performed with the administration of intravenous contrast. Multiplanar reformatted images are provided for review. Automated exposure control, iterative reconstruction, and/or weight based adjustment of the mA/kV was utilized to reduce the radiation dose to as low as reasonably achievable. COMPARISON: March 02, 2018 HISTORY: ORDERING SYSTEM PROVIDED HISTORY: Reason for Exam: Abd pain FINDINGS: No osseous abnormality. The lung bases are unremarkable. Cholecystectomy clips are present. No focal liver lesions seen. The spleen, adrenal glands and pancreas are unremarkable. There are small scattered areas of renal scarring present and there are small renal cysts as well. No other kidney abnormality. No adenopathy, free air or free fluid is visible. No GI tract abnormality is visible. The appendix is normal. No additional contributory abnormality seen. IMPRESSION: No acute abnormality identified on this exam. Interpreted by: Deng Holland MD Preliminary Report By: Deng Holland MD Electronically signed By Deng Holland MD Dictated Date: 09/13/2021 11:49:16 AM Prelim Date: 09/13/2021 11:53:18 AM Sign Date: 09/13/2021 11:53:18 AM Ordering Provider: KALINA WOOD [facility] 06-01-2021 Hospital Discharge instructions Patient Education 06/01/2021 02:06:10 Chest Pain, Uncertain Cause Uncertain Causes of Chest Pain Chest pain can happen for a number of reasons. Sometimes the cause can't be determined. If your condition does not seem serious, and your pain does not appear to be coming from your heart, your healthcare provider may recommend watching it closely. Sometimes the signs of a serious problem take more time to appear. Many problems not related to your heart can cause chest pain. These include: Musculoskeletal. Costochondritis is an inflammation of the tissues around the ribs that can occur from trauma or overuse injuries, or a strain of the muscles of the chest wall Respiratory. Pneumonia, collapsed lung (pneumothorax), or inflammation of the lining of the chest and lungs (pleurisy) Gastrointestinal. Esophageal reflux, heartburn, ulcers, or gallbladder disease Anxiety and panic disorders Nerve compression and inflammation Rare miscellaneous problems such as aortic aneurysm (a swelling of the large artery coming out of the heart) or pulmonary embolism (a blood clot in the lungs) Home care After your visit, follow these recommendations: Rest today and avoid strenuous activity. Take any prescribed medicine as directed. Be aware of any recurrent chest pain and notice any changes Follow-up care Follow up with your healthcare provider if you do not start to feel better within 24 hours, or as advised. Call 911 Call 911 if any of these occur: A change in the type of pain: if it feels different, becomes more severe, lasts longer, or begins to spread into your shoulder, arm, neck, jaw or back Shortness of breath or increased pain with breathing Weakness, dizziness, or fainting Rapid heart beat Crushing sensation in your chest When to seek medical advice Call your healthcare provider right away if any of the following occur: Cough with dark colored sputum (phlegm) or blood Fever of 100.4 F (38 C) or higher, or as directed by your healthcare provider Swelling, pain or redness in one leg [id number] [employer]. [address] [place] [address]. All rights reserved. This information is not intended as a substitute for professional medical care. Always follow your healthcare professional's instructions. Follow Up Care 06/01/2021 00:53:42 With:MICHELLE ALVA Address:Unknown When:2-4 days [facility] 01-09-2021 Hospital Discharge instructions Patient Education 01/09/2021 13:09:47 LACERATION, All Laceration (All Closures) A laceration is a cut through the skin. This will usually require stitches (sutures) or rea if it is deep. Minor cuts may be treated with a surgical tape closure or skin glue. Home care The following guidelines will help you care for your laceration at home: Extremity, face, or trunk wounds Keep the wound clean and dry. If a bandage was applied and it becomes wet or dirty, replace it. Otherwise, leave it in place for the first 24 hours. If stitches or rea were used, clean the wound daily. After removing the bandage, wash the area with soap and water. Use a wet cotton swab to loosen and remove any blood or crust that forms. The doctor may prescribe an antibiotic cream or ointment to prevent infection. Do not stop taking this medication until you have finished the prescribed course or the doctor tells you to stop. The doctor may also prescribe medications for pain. Follow the doctor s instructions for taking these medications. You may remove the bandage to shower as usual after the first 24 hours, but do not soak the area in water (no swimming) until the stitches or rea are removed. If surgical tape was used, keep the area clean and dry. If it becomes wet, blot it dry with a towel. If skin glue was used, do not scratch, rub, or pick at the adhesive film. Do not place tape directly over the film. Do not apply liquid, ointment, or creams to the wound while the film is in place. Do not clean the wound with peroxide and do not apply ointments. Avoid activities that cause heavy sweating until the film has fallen off. Protect the wound from prolonged exposure to sunlight or tanning lamps. You may shower as usual but do not soak the wound in water (no baths or swimming). The film will fall off by itself in 5 10 days. Scalp wounds During the first two days, you may carefully rinse your hair in the shower to remove blood, glass or dirt particles. After two days, you may shower and shampoo your hair normally. Do not soak your scalp in the tub or go swimming until the stitches or rea have been removed. Talk with your doctor before applying any antibiotic ointment to the wound. Mouth wounds Eat soft foods to reduce pain. If the cut is inside of your mouth, clean by rinsing after each meal and at bedtime with a mixture of equal parts water and hydrogen peroxide (do not swallow!). Or, you can use a cotton swab to directly apply hydrogen peroxide onto the cut. Mouth wounds can be painful when eating. You may use an vkco-gfw-selnzmb local numbing solution for pain relief. If this is not available, you may use any numbing solution for teething babies. You may apply this directly to the sores with a cotton-tip swab or with your finger. Follow-up care Follow up with your health care provider. Most skin wounds heal within ten days. Mouth and facial wounds heal within five days. However, even with proper treatment, a wound infection may sometimes occur. Therefore, you should check the wound daily for signs of infection listed below. Stitches should be removed from the face within five days; stitches and rea should be removed from other parts of the body within 7 14 days. If dissolving stitches were used in the mouth, these will fall out or dissolve without the need for removal. If tape closures were used, remove them yourself if they have not fallen off after 7 days. If skin glue was used, the film will fall off by itself in 5 10 days. When to seek medical advice Call your health care provider right away if any of these occur: Bleeding not controlled by direct pressure Signs of infection, including increasing pain in the wound, increasing wound redness or swelling, or pus coming from the wound Fever of 100.4 F (38 C) or higher, or as directed by your health care provider Stitches or rea come apart or fall out or surgical tape falls off before 7 days Wound edges re-open [id number] [employer]. [address] [place] [address]. All rights reserved. This information is not intended as a substitute for professional medical care. Always follow your healthcare professional's instructions. Follow Up Care 01/09/2021 11:30:35 With:AVA ESCALANTE Address: When:2-4 days With:Go to emergency room if symptoms worsen Address:Unknown When:2-[address] [facility] 10-13-2020 Evaluation + Plan note Future Scheduled TestsCOVID SARS PCR Screen ([facility] Only) 10/13/20XR Finger 5th Digit 3 Views Right 05/27/21 [facility] Evaluation + Plan note Future Appointments Appointment Date:02/26/2021 08:30:00 AM Scheduled Provider:MICHELLE ALVA DO Location:[facility] Appointment Type:PC OV Future Scheduled Tests.Coronavirus 201802/14/20Complete Blood Count 01/18/20COVID SARS PCR Screen ([facility] Only) 10/13/20Complete Metabolic Panel 01/18/20XR Foot Minimum 3 Views Left 01/18/20 [facility] Evaluation + Plan note Future Appointments Appointment Date:02/26/2021 08:30:00 AM Scheduled Provider:MICHELLE ALVA DO Location:[facility] Appointment Type:PC OV Future Scheduled Tests.Coronavirus 201802/14/20COVID SARS PCR Screen ([facility] Only) 10/13/20 [facility] Evaluation + Plan note Future Appointments Appointment Date:05/27/2021 04:30:00 PM Scheduled Provider:MICHELLE ALVA DO Location:[facility] Appointment Type:PC OV Future Scheduled TestsCOVID SARS PCR Screen ([facility] Only) 10/13/20 [facility] Evaluation + Plan note Future Appointments Appointment Date:08/19/2021 09:30:00 AM Scheduled Provider:MICHELLE ALVA DO Location[facility] Appointment Type:PC OV Future Scheduled TestsCOVID SARS PCR Screen ([facility] Only) 10/13/20XR Finger 5th Digit 3 Views Right 05/27/21 [facility] Evaluation + Plan note Future Appointments Appointment Date:04/22/2022 08:30:00 AM Scheduled Provider:MICHELLE ALVA DO Location:[facility] Appointment Type:PC OV Controlled Medication Future Scheduled TestsXR Finger 5th Digit 3 Views Right 05/27/21 [facility] Evaluation + Plan note Future Appointments Appointment Date:07/17/2022 07:30:00 AM Scheduled Provider:MICHELLE ALVA DO Location:[facility] Appointment Type:PC OV [facility] Evaluation + Plan note Future Appointments Appointment Date:02/03/2023 08:00:00 AM Scheduled Provider:MICHELLE ALVA DO Location:[facility] Appointment Type:PC OV [facility] Hospital course Narrative No data available for this section [facility] Hospital Discharge instructions No data available for this section [facility] Progress note No data available for this section [facility] Summary Purpose Family History No Family History Records Found Advance Directives No Advanced Directives Records Found Additional Source Comments Care Team (unrecognized sect ion and content) Care Team Personnel Name: MICHELLE ALVA DO Position: P4 Physician - Primary Care Med Service: Active Provider Member Role: Primary Care Physician Address: Address: [address] [place] [address] Care Team Related Persons Name: SHWETHA DONNELLY Address: Home [address] [place], [place] [phone] [place] Care Team Personnel Name: MICHELLE ALVA DO Position: P4 Physician - Primary Care Member Role: Primary Care Physician Address: Address: [address] [place] [address] Care Team Related Persons Name: SHWETHA DONNELLY Address: [place] [address] [place], [place] [phone] Patient Care team informatio n (unrecognized section and content) Care Team Personnel Name: MICHELLE ALVA DO Position: P4 Physician - Primary Care Member Role: Primary Care Physician Address: Address: [address] [place] [address] [place] [address] [place] Care Team Related Persons Name: SHWETHA DONNELLY Address: Home [address] [place], [place] [phone] Care Team Personnel Name: MICHELLE ALVA DO Position: P4 Physician - Primary Care Member Role: Primary Care Physician Address: Address: [address] [place] [id number] [place] [address] Care Team Related Persons Name: SHWETHA DONNELLY Address: Home [address] [place], [place] [phone] Care Team Personnel Name: MICHELLE ALVA DO Position: P4 Physician - Primary Care Member Role: Primary Care Physician Address: Address: [address] [place] [address] Care Team Related Persons Name: SHWETHA DONNELLY Address: Home [address] [place], [place] [phone] INFORMATION SOURCE (unrecogn ized section and content) FOR RECORDS PERTAINING TO PATIENTS WHO ARE OR HAVE BEEN ENROLLED IN A CHEMICAL DEPENDENCY/SUBSTANCEABUSE PROGRAM, SOME INFORMATION MAY BE OMITTED. This clinical summary was aggregated from multiple sources. Caution should be exercised in using it in the provision of clinical care. This summary normalizes information from multiple sources, and as a consequence, information in this document may materially change the coding, format and clinical context of patient data. In addition, data may be omitted in some cases. CLINICAL DECISIONS SHOULD BE BASED ON THE PRIMARY CLINICAL RECORDS. [facility]. provides no warranty or guarantee of the accuracy or completeness of information in this document.
[2023-03-05 00:24] VITALS: BP 113/63; PULSE 81; RESP 15; O2SAT 92
[2023-03-05 00:40] LABS: ALB/GLOB Ratio 0.7 RATIO (0.9-2.4); AST(SGOT) 11 U/L (15-37); Alanine Aminotransfer ALT/SGPT 14 U/L (13-56); Albumin, Serum 2.9 g/dL (3.2-5.0); Alkaline Phosphatase 136 U/L (45-117); Anion Gap 5 (5-15); BUN 13 mg/dL (7-18); BUN/Creat Ratio 16.7 RATIO (10-20); Calcium,Total 8.9 mg/dL (8.5-10.1); Chloride 103 mmol/L (98-107); Creatinine, Serum 0.78 mg/dL (0.55-1.02); EST Glomerular Filtration Rate 82 mL/min (>60); Est Glom Filt Rate - Afr Amer 99 mL/min (>60); Estimated Creatinine Clearance 81.11 ml/min; Globulin 4.3 g/dL (2.2-4.2); Glucose 132 mg/dL (74-106); Lipase 17 U/L (13-75); Potassium 3.9 mmol/L (3.5-5.1); Protein, Total 7.2 g/dL (6.4-8.2); Sodium Level 138 mmol/L (136-145)
[2023-03-05 02:00] VITALS: BP 105/65; PULSE 73; RESP 15; O2SAT 95
[2023-03-05] MEDS: Ciprofloxacin 500 MG Tablet PO (02:16)
[2023-03-05] MEDS: MethylPREDNISolone 125 MG/2 ML Vial IV (02:16)
[2023-03-05] MEDS: metroNIDAZOLE 500 MG Tablet PO (02:16)
[2023-03-05 02:20] VITALS: BP 105/65; PULSE 69; RESP 15; O2SAT 95
--- NOTE | 2023-03-05 23:21 | CT_ITS ---
INDICATION: rlq abdominal pain EXAMINATION: CT ABDOMEN AND PELVIS WITH CONTRAST - CT Abdomen And Pelvis W/ Contrast Injection TECHNIQUE: Helically acquired images were obtained of the abdomen and pelvis following IV contrast. A radiation dose optimization technique was used for this scan. IV Contrast dosage and agent: Oral contrast: None. COMPARISON: January 27, 2023, June 29, 2021, March 22, 2020 FINDINGS: LOWER CHEST: Lung bases are clear. No cardiomegaly or pericardial effusion. LIVER: Homogeneous. No focal mass. GALLBLADDER AND BILIARY TREE: Cholecystectomy. Additional surgical clip noted along the inferior right hepatic tip without surrounding inflammation. . No intra- or extrahepatic biliary ductal dilation. PANCREAS: No focal cystic or solid mass. SPLEEN: Normal size without focal cystic or solid mass. ADRENAL GLANDS: No nodules. KIDNEYS AND URETERS: Multiple bilateral renal hypodensities are too small to characterize but commonly cysts, no specific imaging follow-up required. No hydronephrosis or perinephric inflammation. Unremarkable ureters. Unremarkable bladder. PERITONEUM: No ascites or free air. No abscess or other fluid collection. BOWEL: No acute gastric finding. No small bowel distention or focal wall thickening. Normal appendix. There is diffuse loss of colonic haustra with mild wall thickening along the descending colon. Mild surrounding inflammatory stranding along the descending colon. Moderate proximal to mid colonic stool burden. . No gross fistulization. LYMPH NODES: No enlarged mesenteric or retroperitoneal lymph nodes. VESSELS: Aorta is non-dilated. URINARY BLADDER: Unremarkable. REPRODUCTIVE ORGANS: Absent uterus. No evidence of adnexal mass. ABDOMINAL WALL: Small fat-containing umbilical hernia without inflammation.. BONES: No lytic or blastic abnormality. CT/Abdomen/Pelvis W IV Cont ONLY IMPRESSION: Diffuse loss of haustra along the colon with mild wall thickening or surrounding inflammation along the descending colon concerning for acute on chronic inflammatory bowel disease such as ulcerative colitis. Chronic laxative use with mild acute descending colonic colitis could look similar. Electronically Signed: Octaviano Escoto MD at 1:26 EST ,
== END 2023-03-05 02:44 | disposition home or self-care (01) ==
PROVIDERS: Emergency Provider Student in an Organized Health Care Education/Training Program; PCP Preventive Medicine Occupational Medicine; Visit Provider Student in an Organized Health Care Education/Training Program
DX: K51.90 Ulcerative colitis, unspecified, without complications (principal); R11.2 Nausea with vomiting, unspecified; R19.7 Diarrhea, unspecified
CPT/HCPCS: 36591; 74177; 80053; 83690; 85025; 87428; 96361; 96374; 96375; 99284; Q9967; A4216; J2405

== ENCOUNTER 2023-08-13 14:38 | Outpatient (CLI) | payer OTHER, SELFPAY | END 2023-08-13 23:59 | disposition home or self-care (01) | LOC: MEDOUTP 14:39 | PROVIDERS: PCP Preventive Medicine Occupational Medicine; Referring Provider Preventive Medicine Occupational Medicine; Visit Provider Preventive Medicine Occupational Medicine | DX: K51.90 Ulcerative colitis, unspecified, without complications (principal) | CPT/HCPCS: 96523 ==

== ENCOUNTER 2023-12-18 15:47 | Emergency (ER) | payer OTHER, SELFPAY ==
[2023-12-18 15:48] VITALS: BP 133/80; PULSE 86; RESP 16; TEMP 36; O2SAT 96; BMI 31.8
--- NOTE | 2023-12-18 16:39 | ED.VIS.LOWEX ---
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 She had a twisting mechanism treated as she fell to the ground. Onset/Context/Timing Onset: Today and Hours Context: Sudden Onset Timing: Continuous Quality of Pain: Aching Location: Dorsal lateral proximal foot and lateral left ankle Current Severity: Mild Maximum Severity: Severe Worsened by: Light touch Relieved by: Nothing Associated Symptoms Associated Symptoms: Positive for - (Walked into triage with a limp); Negative for Parasthesia, Weakness or Loss of Funtion Narrative Narrative: Patient is a 53-year-old woman. She has history of fracture left ankle this past May. She saw podiatry. She denies paresthesia, anesthesia or motor works. She is not on antithrombotic or anticoagulant. She has no other complaints or injuries. Prior similar symptoms: Yes Recent Illness/Hospitalization: No PFSH PFSH Medical History Wears partial dentures Wears glasses Depression Anxiety History of renal disease Anemia Blackout Difficulty swallowing Leg cramps History of echocardiogram History of stress test History of irregular heartbeat Blood per rectum Irritable bowel syndrome with diarrhea Sweet syndrome Degenerative disc disease Fibromyalgia Ulcerative colitis Arthritis Home Medications ?Medication ?Instructions ?Recorded ?Last Taken ?Type lorazepam 0.5 mg tablet 0.5 mg PO TID PRN PRN Anxiety 03/22/20 03/22/20 History metoprolol succinate 25 mg 25 mg PO DAILY heart 03/22/20 09/25/22 History tablet,extended release 24 hr tramadol 50 mg tablet 50 mg PO Q6H PRN PRN Pain 1-10 Or 03/22/20 09/25/22 History Fever dicyclomine 20 mg tablet 20 mg PO .qid 08/08/22 Unknown History budesonide 3 mg 9 mg (3 x 3 mg) PO DAILY #810 caps 09/28/23 Unknown Rx capsule,delayed,extended release ondansetron HCl 4 mg tablet 4 mg PO Q6H #180 tabs 12/17/23 Unknown Rx Allergy/AdvReac Type Severity Reaction Status Date / Time erythromycin base Allergy Severe N/V/D CANT Verified 12/18/23 15:48 (Erythromycin Base) BREAATHE Penicillins Allergy Vomiting Verified 12/18/23 15:48 Family History Grandmother Colon cancer Mother Heart disease Grandfather Stomach cancer Heart disease Surgical History History of extraction of renal calculus History of hysterectomy History of cholecystectomy History of section Social History Smoking Status: Never smoker alcohol intake: never ROS ROS ED Musculoskeletal Musculoskeletal: Reports other Details: Left lateral foot and ankle pain status post blunt trauma Neurologic Neurologic: Denies paresthesias or weakness Hematologic/Lymphatic Hematologic/Lymphatic: Denies easy bleeding or easy bruising EXAM Physical Exam Const Vital Signs: 12/18/23 15:48 Temperature 96.8 F L Temperature Source Temporal Pulse Rate 86 Respiratory Rate 16 Blood Pressure 133/80 H Blood Pressure Mean 97 Pulse Ox 96 Oxygen Delivery Method Room Air Positive well nourished and well developed General Appearance ED: well developed HEENT normocephalic and atraumatic Eyes PERRL Resp normal respiratory effort Cardio regular rate and regular rhythm Extremity full ROM; Negative for normal to inspection Extremity Narrative: There is swelling over the insertion site of the anterior talofibular ligament. Patient reports significant pain with light touch over the lateral and medial malleolus. She did not have pain palpation over the base of the fifth metatarsal. She is able to plantar and dorsiflex her foot. DP and PT pulse are palpable and 2+. General Extremety ED: Yes weight-bearing difficulty; Negative for cyanosis or edema General Extremity: weight-bearing difficulty; Negative for cyanosis or edema Neuro oriented x3, CN's II-XII intact bilaterally and moves all extremities Sensorium / Orientation: alert Psych mental status grossly normal Skin no wounds Lesions: no lesions Rashes: no rashes MDM MDM MDM Narrative Medical decision making narrative: Will obtain three-view x-ray of the ankle to evaluate for fracture versus soft tissue injury/sprain, anterior talofibular ligament since she has swelling and tenderness over this area. Also to evaluate for rahul fracture. Radiography Chest X-Ray - ED: Read by ED Physician (Three-view x-ray of the ankle was independent reviewed interpreted by me at 1652 as negative for any acute process. There may have been evidence of a prior medial malleolus fracture. There is no soft tissue swelling. There is no widening or asymmetry of the mortise. The base of the fifth metatar) Discharge Plan Triage Chief Complaint: Lower Extremity Injury ED Provider: Teddy Ji Dx/Rx/DC Orders Clinical Impression: Sprain of anterior talofibular ligament of left ankle, Rheumatoid arthritis, Fibromyalgia Instructions: ED Ankle Sprain (Adult) Prescriptions: No Action dicyclomine 20 mg tablet 20 mg PO .qid Patient Comments: take 1 tablet by mouth four times a day for 10 days ondansetron HCl 4 mg tablet 4 mg PO Q6H Qty: 180 0RF tramadol 50 MG tablet 50 mg PO Q6H PRN PRN (Reason: Pain 1-10 Or Fever) lorazepam 0.5 MG tablet 0.5 mg PO TID PRN PRN (Reason: Anxiety) metoprolol succinate 25 MG tablet extended release 24 hr 25 mg PO DAILY budesonide 3 mg capsule,delayed,extend.release 9 mg PO DAILY Qty: 810 1RF Primary Care Provider: Emmanuel Eagle Referrals: [facility] [Group of Physicians] - 3-5 Days Emmanuel Eagle DO [Primary Care Provider] - Activity Restrictions/Additional Instructions: 1. Apply ice 6-10 times a day for the next 3 to 5 days 2. Draw the alphabet with your foot 4 times a day 3. You may take either 4 ibuprofen tablets every 8 hours or 2 Aleve tablets every 12 hours for the next 3 to 5 days for your pain 4. Recommend wearing a flat soled shoe until you are symptom-free, recommend not going up and down ladder or incline greater than 10 degrees. Print Language: Georgian Disposition Disposition: Home, Self Care
--- NOTE | 2023-12-18 16:47 | RAD_ITS ---
INDICATION: Injury/Pain EXAMINATION/TECHNIQUE: X-RAY - LEFT XR Ankle Min 3 Views 3 VIEWS COMPARISON: FINDINGS: SOFT TISSUES: No soft tissue swelling or gas. No radiopaque foreign body. BONES/JOINTS: No acute fracture or subluxation.. Normal alignment. Calcaneal spurring. Preservation of the joint space.. No sclerotic or destructive changes observed. RAD/Ankle min 3 Views IMPRESSION: No acute bony injury. Electronically Signed: Zack Chavez DO at 17:18 EDT ,
--- NOTE | 2023-12-18 17:16 | ED.RN ---
This RN spoke to Muna Carrillo with [facility], Muna informed the patient and this RN that she did not need to give a drug screen. notified, patient discharged.
== END 2023-12-18 17:21 | disposition home or self-care (01) ==
LOC: ED 17:01
PROVIDERS: Emergency Provider Emergency Medicine; PCP Preventive Medicine Occupational Medicine; Visit Provider Emergency Medicine
DX: S93.492A Sprain of other ligament of left ankle, initial encounter (principal); M06.9 Rheumatoid arthritis, unspecified; M79.7 Fibromyalgia; W19.XXXA Unspecified fall, initial encounter
CPT/HCPCS: 73610; 99282

== ENCOUNTER 2024-01-19 12:55 | Day surgery (SDC) | payer OTHER, SELFPAY ==
[2024-01-19] VITALS (8 sets, daily range): BP systolic 86–111; BP diastolic 49–72; PULSE 64–79; RESP 16; TEMP 36.2–36.6; O2SAT 95–98; BMI 32.1
--- NOTE | 2024-01-19 13:47 | HP.PCM_ITS ---
History and Physical Date of Admission: 01/19/24 GABRIELA DONNELLY, is a 53 F who presents to the office today for follow up. PMH anxiety; degenerative disc disease, fibromyalgia, mitral valve prolapse. Prior workup: Colonoscopy Dr. Biggs 02.23.17 for chronic UC. Inflamed rectal mucosa; left colon with inflammation and ulceration, pathology with moderately active chronic colitis with cryptitis and crypt abscesses, also seen in right colon random biopsy; pseudopolyps of transverse colon and one sessile polyp; thick liquid in right colon; CT abd/pel .10.28 for abd pain noting cholecystectomy. No additional acute/chronic findings. *BGI established 2.08.29 with referral from PCP. Ulcerative colitis diagnosed 2008. PCP prescribed prednisone taper and will attempt to resume biologic. Remicade (Sweet syndrome), Humira, Asacol (effective, constipation), lialda were all attempted but had SE or ineffective. Currently utilizing Entyvio, for which she pays out of pocket for (5$ savings program) and is currently having problems with getting the infusion as her insurance does not cover infusion services; she also feels that she gets a lot of infections. Feels her symptoms are currently well controlled without diarrhea, blood, mucus or abdominal pain. She has changed her diet to accommodate her disease. Start mesalamine. ? Biochemical CBC, ESR, CMP, LDH, MARY BETH comp, IgGME, celiac, TB without pertinent abnormality. ? AST 21-ALT 20-AP H132, CRP 5.62, IgA H353, UC (apANCA 1:640) ? Lactoferrin +, calprotectin H183 Contact 07.02.22 reporting water retention; pharmacist told her it is r/t mesalamine and she should stop immediately. Call returned that this can be a reaction but it is not emergent and OK to stop mesalamine. Reminder to get bloodwork and stool testing performed. Contact 07.15.22 with blood/stool updates; recommend colonoscopy as next step. Since stopping mesalamine her edema has resolved but she generally feels unwell. Recommend budesonide start. ? EGD and colonoscopy 09.25.22 EGD irregular Zline 40cm, Paneth cell metaplasia; gastritis; duodenitis ? Colonoscopy inadequate prep; hemorrhoids; 19mm sigmoid pseudo- polyp. Pathology chronic colitis with granular distortion, cryptitis, crypt abscesses and Paneth cell metaplasia Contact, VM 8.3.23 no acute concerns on EGD/colonoscopy; continue budesonide. OV 10.30. occasionally has issue with food triggered loose stools that self- resolve. Continues with budesonide 6mg (9mg caused constipation) and PRN dicyclomine and has had drastic improvement of her symptoms and quality of life. OV 4.24.24 pt has been experiencing a lot of stress in her personal life and is having a increase in symptoms. Pt reports feeling nauseous all day everyday, and that she is having alternating diarrhea and constipation. Pt continues with Budesonide 6mg and PRN dicyclomine. OV 10..24 pt reports that she believes she is in a flare. Pt states that 3 weeks ago she was told she has BV and the Dr gave her flagyl, pt told Dr that flagyl would give her diarrhea. Since then, for the past three weeks, pt has had N/V, alternating bowels, abd pain, and gas/bloating. Pt reports that she is slowly starting to feel better and that she was feeling well prior to this flare. ROS Const Constitutional: Positive for fatigue, fever(s), headache(s) and weight change (weight loss) ENT ENT: Positive for headache(s); No difficulty swallowing Gastro GI: Positive for abdominal pain, bloating, change in bowel habits, constipation, diarrhea, heartburn, excessive flatus, Blood in stool, nausea/dyspepsia and vomiting; No belching, change in stool character, coffee ground emesis, cramping, difficulty swallowing, feeling full early, incontinent of stools, Vomiting blood/hematemesis, loose stools, Black,tarry stools, pain with swallowing or other Musc Musculoskeletal: Positive for joint pain, back pain, muscle cramps, muscle weakness, numbness, stiffness, tingling, Arthritis and leg pain at night Skin Skin: Positive for itchy eyes; No yellowing of the eye Neuro Neurology: Positive for headache(s), numbness and tingling Psych Psychiatric: Positive for anxiety and Positive for depression Endo Endocrine: Positive for fatigue and weight change (weight loss) Aller/Imm Allergy/Immunologic: Positive for itchy eyes Dylan/Lymp Hematologic/Lymphatic: No easy bleeding or easy bruising Exam Const General: cooperative and comfortable Nutritional Appearance: obese Orientation: alert, awake and oriented x3 Eyes Sclera: sclerae normal Resp Effort & Inspection: normal respiratory effort GI Inspection: normal to inspection Palpation: soft and tender in the LUQ Psych Other: depressed affect Assessment and Plan Assessment and Plan (1) Ulcerative colitis: Status: Chronic Qualifiers: Ulcerative colitis location: ulcerative pancolitis Digestive disease complication type: with rectal bleeding Qualified Code(s): K51.011 - Ulcerative (chronic) pancolitis with rectal bleeding Plan: 20-year history of severe pain and also colitis treated successfully with Remicade. 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 That was stopped and she was placed on Entyvio and prednisone therapy which caused her to develop bone loss and the loss of several bottom teeth. We put on budes onide therapy 9 mg a day and transition down to 6 mg a day. She is having no diarrhea, fecal urgency or lower GI bleeding. She says this is the best she has felt in years. We went over the risk and benefits of budesonide therapy and she said she wanted to continue this for now. I told her we will continue it at the lowest dose possible for the next 6 months and then see if we can get her on a nonsteroid-based regimen. Recheck her fecal calprotectin, stool lactoferrin, stool culture, ESR, CRP in 6 months. Medications: New ondansetron HCl 4 mg PO Q6H 180 tabs 0RF I have examined the patient and the H&P has been reviewed. There are no clinical changes since date of exam.
--- NOTE | 2024-01-19 14:09 | PCM.PRE.AN2 ---
ASA Classification* ASA Classification ASA Classification: 2 Assessment & Plan Anesthesia* Anesthesia Assessment Anesthesia Assessment: Discussed sedation and/or anesthesia options, risks, benefits, and alternatives with patient/parents/legal guardian/POA. Questions invited. The patient/parents/legal guardian/POA seems to understand and agrees to proceed with anesthesia plan. Reviewed the physical assessment, medical history, allergy history and patient home medications list prior to surgery/procedure/anesthetic and documented any changes. Performed airway and anesthesia risk assessments. Anesthesia Type Anesthesia Type: MAC History Source History Obtained from:: Patient and Chart Anesthesia Focused Assessment* Temperature: 97.2 F Pulse Rate: 79 Blood Pressure: 111/72 Respiratory Rate: 16 Pulse Ox: 98 Oxygen Delivery Method: Room Air Airway Assessment Mouth opens: >3 cm Mallampati Score: II Teeth Condition: Partial (Patient has partials top and bottom. They are out.) Neck Range of motion (ROM): Full ROM Focused Labs Anesthesia Preop lab: CBC WBC 12.5 K/mm3 (4.4-11.0) H 03/04/23 23:55 RBC 4.24 M/mm3 (4.2-5.4) 03/04/23 23:55 Hgb 11.6 g/dL (12.0-15.0) L 03/04/23 23:55 Hct 37.0 % (37-47) 03/04/23 23:55 Plt Count 262 K/mm3 (150-450) 03/04/23 23:55 CHEMISTRY Potassium 3.9 mmol/L (3.5-5.1) 03/04/23 23:55 Sodium 138 mmol/L (136-145) 03/04/23 23:55 Magnesium 2.1 mg/dL (1.6-2.6) 06/29/21 01:49 Phosphorus 2.9 mg/dL (2.5-4.9) 07/30/15 07:55 BUN 13 mg/dL (7-18) 03/04/23 23:55 Creatinine 0.78 mg/dL (0.55-1.02) 03/04/23 23:55 Glucose 132 mg/dL (74-106) H 03/04/23 23:55 TSH 1.93 uIU/mL (0.358-3.74) 03/03/19 16:50 COAG Pre-Assessment Diagnosis/Proposed Procedure Planned Operative Procedure(s): colonoscopy Anesthesia History 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 When Was Last Pacemaker Check QUESTION #4 FULL TEXT: You/Your Family Experience fever (hyperthermia) with Anesthesia Last Oral Intake Last Oral intake: Last Oral Intake NPO since 07:00 01/19/24 13:11 Meds taken in AM with sips of Yes 01/19/24 13:11 water? Meds patient instructed to metoprolol 01/19/24 13:11 take am of surgery Any additional information?: Yes NPO since: 07:00 (Patient finished prep at 7 AM.) PONV PONV - fire management officer: PONV - fire management officer Female Yes 01/18/24 08:27 HX of Motion Sickness No 01/18/24 08:27 HX of N/V After Surgery Yes 01/18/24 08:27 Non-Smoker Yes 01/18/24 08:27 Duration of Surgery greater No 01/18/24 08:27 than 60 minutes Number of Risk Factors 3 01/18/24 08:27 PONV Score Moderate Risk 01/18/24 08:27 Height & Weight Height & Weight: Anesthesia: Height & Weight Height 5 ft 6 in 01/19/24 13:11 Weight: 90.2 kg 01/19/24 13:11 Body Mass Index (BMI) 32.1 01/19/24 13:11 Respiratory Assessment Respiratory Assessment - fire management officer: Respiratory Tract Infection Hx - fire management officer Hx Respiratory Tract Infection No 01/18/24 08:27 STOP Sleep Apnea STOP Sleep Apnea - fire management officer: STOP Sleep Apnea - fire management officer Hx Hypertension No 01/18/24 08:27 Hx Sleep Apnea No 01/18/24 08:27 CPAP BIPAP Do you snore loudly (louder No 01/18/24 08:27 than talking or can be heard Do you often feel tired/ No 01/18/24 08:27 fatigued/ sleepy during daytime? Has anyone observed you stop No 01/18/24 08:27 breathing during sleep? STOP Results Negative 01/18/24 08:27 QUESTION #5 FULL TEXT : Do you snore loudly (louder than talking or can be heard through closed doors)? 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 Specify any problems Hx of Preganancy in last 3 No 01/18/24 08:27 Months Nurse Filling Out Transfusion [id number] 01/18/24 08:27 & Questions: Date: 01/18/24 01/18/24 08:27 Time: 08:30 01/18/24 08:27 Patient unable to answer at this time (ie. confused, unrespo /Reproduction History /Reproductive History - fire management officer: /Reproductive Hx- fire management officer Hx Now Gestational Age (in weeks): EDC: Hx Hx Para Hx Section SAB No 09/23/22 16:56 Active Medications Active Medications: Current Medications Generic Name Dose Route Start Last Admin Trade Name Freq PRN Reason Stop Dose Admin Heparin Sodium (Beef Lung) 50 units 01/19/24 13:46 Heparin Pf Lock 10 Units/Ml 50 Units/5 Ml Syringe IV UD PRN Port-a-Cath (VAD)Heparin Flush Sodium Chloride 10 - 40 ml 01/19/24 13:46 0.9 % Nacl (Sterile) Posiflush 10 Ml IV UD PRN Port access or dressing change Sodium Chloride 10 - 40 ml 01/19/24 13:46 0.9% Saline Lock 10 Ml Syringe IV UD PRN Port-a-Cath (VAD) Flush PFSH Medical History Colitis Back pain Cardiology follow-up encounter Wears partial dentures Wears glasses Depression Anxiety History of renal disease Anemia Blackout Difficulty swallowing Leg cramps History of echocardiogram History of stress test History of irregular heartbeat Blood per rectum Irritable bowel syndrome with diarrhea Sweet syndrome Degenerative disc disease Fibromyalgia Ulcerative colitis Arthritis Home Medications ?Medication ?Instructions ?Recorded ?Last Taken ?Type lorazepam 0.5 mg tablet 0.5 mg PO TID PRN PRN Anxiety 03/22/20 03/22/20 History metoprolol succinate 25 mg 25 mg PO DAILY heart 03/22/20 01/19/24 History tablet,extended release 24 hr tramadol 50 mg tablet 50 mg PO Q6H PRN PRN Pain 1-10 Or 03/22/20 09/25/22 History Fever dicyclomine 20 mg tablet 20 mg PO 4X/DAY PRN abdominal pain 08/08/22 Unknown History budesonide 3 mg 9 mg (3 x 3 mg) PO DAILY #810 caps 09/28/23 Unknown Rx capsule,delayed,extended release ondansetron HCl 4 mg tablet 4 mg PO Q6H #180 tabs 12/17/23 Unknown Rx Allergy/AdvReac Type Severity Reaction Status Date / Time erythromycin base Allergy Severe N/V/D CANT Verified 01/19/24 13:10 (Erythromycin Base) BREAATHE Penicillins Allergy Vomiting Verified 01/19/24 13:10 Family History Grandmother Colon cancer Mother Heart disease Grandfather Stomach cancer Heart disease Surgical History History of extraction of renal calculus History of hysterectomy History of cholecystectomy History of section Social History Smoking Status: Never smoker alcohol intake: never Review of Systems (Anesthesia) ROS Narrative System reviewed and no additional complaints, except as documented.
--- NOTE | 2024-01-19 14:15 | COLBX_PTH ---
PATIENT: GABRIELA DONNELLY LOC: EN U#:[id number] AGE/SX: 53/F ROOM: RE01/19/[address]: Dr. Gucci Valencia DO : 1970 BED: DIS: 01/19/2024 SPEC #: [id number] RECD: 01/19/24 15:13 STATUS: RAHUL RESandie #: [id number] SANDI: 01/19/24 14:[address]: Gucci Valencia DEPT: SURGICAL PATHOLOGY RECD BY: Riri Garcia ENTERED: 01/20/24 07:47 SP TYPE: COLON BX NIKITA DR: Dr. Emmanuel Eagle DO Tissues: A - COLON BIOPSY B - COLON BIOPSY C - Rectum, NOS Procedures: Surgery Specimen Level IV HEADER OPERATION: Colonoscopy with biopsy and polypectomy PRE-OP DIAGNOSIS: Ulcerative colitis TISSUE SUBMITTED: A- Random colon biopsy, B- Hepatic flexure polyp, C- Rectal biopsy MICROSCOPIC DIAGNOSIS A. Colon, random biopsy: Focal acute colitis. See comment. B. Hepatic flexure polyp, polypectomy: Fragments of inflammatory pseudopolyp. Fragments of fecal material. C. Rectal biopsy: Focal acute colitis. See comment. 01/21/2024 COMMENT A & C. Glandular distortion is noted. Cryptitis, crypt abscesses and granulomas are not seen. No evidence of dysplasia. Correlation with clinical, endoscopic findings and appropriate follow-up are necessary. MICROSCOPIC DESCRIPTION Slides are reviewed. GROSS DESCRIPTION A. Received in fixative is one container labeled with the patient's name and designated Random colon biopsy. The specimen consists of multiple irregular fragments of light euceda soft tissue that in aggregate measure 1.5 x 0.6 x 0.1 cm. The specimen is totally submitted in one cassette. B. Received in fixative is one container labeled with the patient's name and designated Hepatic flexure polyp. The specimen consists of multiple irregular fragments of light euceda soft tissue that in aggregate measure 0.8 x 0.3 x 0.1 cm. The specimen is totally submitted in one cassette. C. Received in fixative is one container labeled with the patient's name and designated Rectal biopsy. The specimen consists of two irregular fragments of light euceda soft tissue that in aggregate measure 0.6 x 0.3 x 0.1 cm. The specimen is totally submitted in one cassette. SJUlyssesmr 01/20/2024 TC:2 CPT:60141o5
--- NOTE | 2024-01-19 15:16 | OP.COLON_ITS ---
Patient Name: Marika Wallis Procedure Date: 01/19/2024 2:30 PM Date of : 1970 Age: 53 Procedure: Colonoscopy Indications: Chronic ulcerative pancolitis Providers: Gucci Valencia DO Referring MD: Gucci Valencia DO Medicines: Monitored Anesthesia Care Patient Profile: This is a 53 year old female. Refer to note in patient chart for documentation of history and physical. Last Colonoscopy: within the past 3 years. Complications: No immediate complications. Procedure: Pre-Anesthesia Assessment: - Prior to the procedure, a History and Physical was performed, and patient medications and allergies were reviewed. The patient is competent. The risks and benefits of the procedure and the sedation options and risks were discussed with the patient. All questions were answered and informed consent was obtained. Patient identification and proposed procedure were verified by the physician in the pre-procedure area. Mental Status Examination: alert and oriented. Airway Examination: normal oropharyngeal airway and neck mobility. Respiratory Examination: clear to auscultation. CV Examination: normal. Prophylactic Antibiotics: The patient does not require prophylactic antibiotics. Prior Anticoagulants: The patient has taken no anticoagulant or antiplatelet agents except for NSAID medication. ASA Grade Assessment: II - A patient with mild systemic disease. After reviewing the risks and benefits, the patient was deemed in satisfactory condition to undergo the procedure. The anesthesia plan was to use monitored anesthesia care (MAC). Immediately prior to administration of medications, the patient was re-assessed for adequacy to receive sedatives. The heart rate, respiratory rate, oxygen saturations, blood pressure, adequacy of pulmonary ventilation, and response to care were monitored throughout the procedure. The physical status of the patient was re-assessed after the procedure. After I obtained informed consent, the scope was passed under direct vision. Throughout the procedure, the patient's blood pressure, pulse, and oxygen saturations were monitored continuously. The Colonoscope was introduced through the anus and advanced to the terminal ileum. The colonoscopy was performed without difficulty. The patient tolerated the procedure well. The quality of the bowel preparation was fair. The terminal ileum, ileocecal valve, appendiceal orifice, and rectum were photographed. Scope In: 2:46:52 PM Scope Withdrawal Time 0 hours 8 minutes 32 seconds Scope Out: 2:59:38 PM Total Procedure Duration Time 0 hours 12 minutes 46 seconds Findings: The perianal and digital rectal examinations were normal. An 8 mm polyp was found in the hepatic flexure. The polyp was sessile. The polyp was removed with a hot snare. Resection and retrieval were complete. Verification of patient identification for the specimen was done. Estimated blood loss was minimal. Stool was found in the entire colon. Inflammation was found as patches surrounded by normal mucosa 5 cm apart. This was graded as Hughes Score 1 (mild, with erythema, decreased vascular pattern, mild friability), and when compared to the previous examination, the findings are unchanged. Biopsies were taken with a cold forceps for histology. Verification of patient identification for the specimen was done. Estimated blood loss was minimal. Impression: - Preparation of the colon was fair. - One 8 mm polyp at the hepatic flexure, removed with a hot snare. Resected and retrieved. - Stool in the entire examined colon. - Mild (Hughes Score 1) ulcerative colitis, unchanged since the last examination. Biopsied. Recommendation: - Discharge patient to home. - Resume previous diet. - Continue present medications. - Await pathology results. - Repeat colonoscopy in 6 months because the bowel preparation was suboptimal. Procedure Code(s): --- Professional --- 89650, Colonoscopy, flexible; with removal of tumor(s), polyp(s), or other lesion(s) by snare technique 99742, 59, Colonoscopy, flexible; with biopsy, single or multiple CPT copyright 2021 [employer]. All rights reserved. The codes documented in this report are preliminary and upon fx artist review may be revised to meet current compliance requirements. Gucci Valencia DO 01/19/2024 3:15:47 PM This report has been signed electronically. Number of Addenda: 0 Note Initiated On: 01/19/2024 2:30 PM
--- NOTE | 2024-01-19 15:16 | OP.CCLET_ITS ---
01/19/2024 Emmanuel Eagle [address] [place] [address] Re : Colonoscopy procedure for Marika Wallis Dear Dr. Eagle This procedure was performed on Friday, January 19, 2024. My impressions and recommendations are as follows: Impressions : - Preparation of the colon was fair. - One 8 mm polyp at the hepatic flexure, removed with a hot snare. Resected and retrieved. - Stool in the entire examined colon. - Mild (Hughes Score 1) ulcerative colitis, unchanged since the last examination. Biopsied. Recommendations : - Discharge patient to home. - Resume previous diet. - Continue present medications. - Await pathology results. - Repeat colonoscopy in 6 months because the bowel preparation was suboptimal. My findings are described in the full procedure note, which is enclosed. If I can be of further assistance, please feel free to contact me at . Sincerely, Gucci Friend, 01/19/2024 3:15:47 PM This report has been signed electronically.
--- NOTE | 2024-01-19 15:18 | PCM.POST.ANE ---
Anesthesia: Postop Eval I Current Vital Signs Temperature: 97.7 F Pulse Rate: 73 Blood Pressure: 87/51 Respiratory Rate: 16 Pulse Ox: 96 Oxygen Delivery Method: Room Air Assessment Airway patent: Yes Spontaneous unlabored respirations: Yes Mental status: Awake and Calm nausea: No Vomiting: No Anesthesia Complication: No Fluid Hydration Crystalloid volume administer (ml): 50 Total IV fluid infused: 50 Progress Note Anesthesia document: Postop Eval 1 completed: Yes
[2024-01-19] MEDS: 0.9 % NaCl (Sterile) Posiflush 10 mL IV (15:50)
--- NOTE | 2024-01-19 16:29 | PCM.POSTANE2 ---
Anesthesia Postop Eval I Sum Postop Eval Completion status Anesthesia document: Postop Eval 1 completed: Yes Anesthesia Postop Eval I Summary Anesthesia Postop Eval I Summary: Anesthesia Postop Eval I: Assessment Summary Airway patent Yes 01/19/24 15:19 [email or web address] Spontaneous unlabored Yes 01/19/24 15:19 [email or web address] respirations Mental status Awake,Calm 01/19/24 15:19 [email or web address] nausea No 01/19/24 15:19 [email or web address] Vomiting No 01/19/24 15:19 [email or web address] Anesthesia Postop Eval I: Fluid Summary Crystalloid volume administer 50 01/19/24 15:19 [email or web address] (ml) Colloids volume administered ( ml) Blood Product volume administered (ml) Total IV fluid infused 50 01/19/24 15:19 [email or web address] Anesthesia Postop Eval I: Summary Notes Anesthesia Complication No 01/19/24 15:19 [email or web address] Anesthesia Complication Comment: Post-operative progress note Anesthesia: Postop Eval II Evaluation Mental status: Awake and Calm Pain Level: 0 nausea: No Vomiting: No Complications Anesthesia Complication: No
== END 2024-01-19 16:46 | disposition home or self-care (01) ==
LOC: EN 12:56 → AC 12:58
PROVIDERS: PCP Preventive Medicine Occupational Medicine; Referring Provider Internal Medicine Gastroenterology; Visit Provider Internal Medicine Gastroenterology
PROC: 0DJD8ZZ Inspection of Lower Intestinal Tract, Via Natural or Artificial Opening Endoscopic (ICD-10-PCS; CPT 45378; principal; 2024-01-19 14:10)
DX: K51.011 Ulcerative (chronic) pancolitis with rectal bleeding (principal); K51.90 Ulcerative colitis, unspecified, without complications; E66.9 Obesity, unspecified; F32.A Depression, unspecified; K63.5 Polyp of colon; Z79.899 Other long term (current) drug therapy
CPT/HCPCS: 45380; 45385; 87493; 87506; 88305; A4216; J2405

== ENCOUNTER 2024-09-19 08:59 | Emergency (ER) | payer SELFPAY ==
[2024-09-19 09:01] VITALS: BP 120/69; PULSE 62; RESP 14; TEMP 36.6; O2SAT 98; BMI 28.5
--- NOTE | 2024-09-19 09:13 | RAD_ITS ---
PROCEDURE: CHEST PA AND LATERAL 09/19/2024 REASON FOR EXAM: SOB TECHNIQUE: CHEST PA AND LATERAL COMPARISON: August 08, 2022 FINDINGS: There is a central access port on the left with its tip centrally located. Surgical clips are noted in the right upper quadrant. Heart size and mediastinal configuration are within normal limits. There is no focal infiltrate or consolidation. There is no pneumothorax or effusion. Aortic calcifications are noted. There is no acute bony abnormality. RAD/Chest PA and Lateral IMPRESSION: No acute process is identified in the chest. Reading Location: [facility]
--- NOTE | 2024-09-19 09:24 | EX.ED.DYSGE1 ---
HPI History of Present Illness Chief Complaint: Shortness of Breath Informant: patient Narrative Narrative: Presents surrounding pruritic rash bilateral arms and legs for past week. She states started after a bonfire burning branches. She states she may have scratch her arms legs against the branches prior to symptoms occurring. Has been using 40 mg prednisone last 3 days. Concerned that spreading. Today had increasing dyspnea trouble catching her breath. Mild cough. She had nausea and vomiting x 1. No change in soaps or detergents. No asthma or COPD. History of ulcerative colitis. She is currently not on her budesonide that she is previously on. Prior similar symptoms: No PFSH PFSH Medical History Colitis Back pain Cardiology follow-up encounter Wears partial dentures Wears glasses Depression Anxiety History of renal disease Anemia Blackout Difficulty swallowing Leg cramps History of echocardiogram History of stress test History of irregular heartbeat Blood per rectum Irritable bowel syndrome with diarrhea Sweet syndrome Degenerative disc disease Fibromyalgia Ulcerative colitis Arthritis Home Medications ?Medication ?Instructions ?Recorded ?Last Taken ?Type lorazepam 0.5 mg tablet 0.5 mg PO TID PRN PRN Anxiety 03/22/20 03/22/20 History metoprolol succinate 25 mg 25 mg PO DAILY heart 03/22/20 01/19/24 History tablet,extended release 24 hr tramadol 50 mg tablet 50 mg PO Q6H PRN PRN Pain 1-10 Or 03/22/20 09/25/22 History Fever budesonide 3 mg 9 mg (3 x 3 mg) PO DAILY #810 caps 09/28/23 Unknown Rx capsule,delayed,extended release estradiol 1 mg tablet 1 mg PO DAILY 09/19/24 Unknown History ondansetron 4 mg disintegrating 4 mg PO Q8H PRN PRN Nausea #10 tabs 09/19/24 Unknown Rx tablet prednisone 20 mg tablet 20 mg PO .asdir #17 tabs 09/19/24 Unknown Rx triamcinolone acetonide 0.1 % 1 applic topical BID PRN rash #30 09/19/24 Unknown Rx topical ointment grams Allergy/AdvReac Type Severity Reaction Status Date / Time erythromycin base Allergy Severe N/V/D CANT Verified 09/19/24 09:00 (Erythromycin Base) BREAATHE Penicillins Allergy Vomiting Verified 09/19/24 09:00 Family History Grandmother Colon cancer Mother Heart disease Grandfather Stomach cancer Heart disease Surgical History History of extraction of renal calculus History of hysterectomy History of cholecystectomy History of section Social History Smoking Status: Never smoker alcohol intake: never ROS ROS ED Constitutional Constitutional ED: Denies chills, fever(s) or sweats ENT ENT ED: Denies sore throat Cardiovascular Cardiovascular: Denies chest pain, leg edema, palpitations or racing heartbeat Respiratory/Chest Respiratory/Chest: Reports cough and dyspnea; Denies dyspnea on exertion Gastrointestinal Gastrointestinal: Denies abdominal pain, diarrhea, nausea or vomiting Genitourinary Genitourinary ED: Denies dysuria, hematuria or urinary frequency Musculoskeletal Musculoskeletal: Denies back pain, extremity pain or neck pain Integumentary Reports rash; Denies wounds Neurologic Neurologic: Denies headache(s), paresthesias or weakness EXAM Physical Exam Const Vital Signs: 09/19/24 09:01 09/19/24 09:19 Temperature 98 F Temperature Source Temporal Pulse Rate 62 Respiratory Rate 14 Respiratory Effort Normal Respiratory Depth Normal Respiratory Pattern Normal Blood Pressure 120/69 Blood Pressure Mean 86 Pulse Ox 98 Oxygen Delivery Method Room Air Positive well nourished and well developed General Appearance ED: well developed and NAD HEENT Reports moist mucous membranes HEENT Narrative: No lip or tongue swelling airway patent no stridor. normocephalic and atraumatic Eyes General Eye ED: Yes normal appearance of both eyes Neck full ROM Chest Wall Chest: Negative for tenderness Resp normal respiratory effort and normal air movement Resp Narrative: Symmetric breath sounds. Effort and Inspection: symmetric chest movement; Negative for respiratory distress Cardio regular rate, regular rhythm and no murmurs Peripheral Pulses: pulses 2+ throughout GI normal to inspection, nondistended, normoactive bowel sounds and non-tender Palpation: Negative for guarding or rebound tenderness present Extremity normal to inspection General Extremety ED: Negative for edema or tenderness General Extremity: Negative for edema Neuro oriented x3 and no sensory deficits noted Sensorium / Orientation: awake and alert Skin Skin Narrative: Bilateral arms: Scattered urticarial lesions with abrasion. No active drainage no vesicles. Does not past the forearm. Bilateral legs: There is a linear abrasion lower thighs with urticarial lesions there is no drainage. No streaking. MDM MDM MDM Narrative Medical decision making narrative: Interventions / MDM: Differential diagnosis: Contact dermatitis, dyspnea, viral syndrome Diagnosis considered but do not suspect: Pneumothorax however chest x-ray negative. Pulm embolism however no tachycardia no hypoxia. My EKG interpretation: N/A Imaging independently reviewed and interpreted by myself: 2 view chest x-ray: No acute process, Mediport left chest. External documents reviewed: N/A Test considered but not ordered:N/A ED course: Patient history for her rash and exam consistent with contact dermatitis likely from exposure from plants. I discussed symptoms will need treatment for 2 weeks. She took 40 mg prednisone today. Will plan for topical steroids to help with areas. Reports dyspnea today with cough. Vital stable. Will obtain chest x-ray. Chest x-ray negative. Reassuring findings. Patient will be continued on prednisone additional topical steroids. Prescription for Zofran. Outpatient follow-up. All questions were answered. Re-evaluation: stable Disposition discussed with patient/family/significant other: Patient Case discussed with consulting clinician: N/A This note was generated with [employer] dictation software. It may contain incorrect words, spelling, and punctuation that were not noted in checking the note before signing. Discharge Plan Triage Chief Complaint: Shortness of Breath ED Provider: Jann Henley Dx/Rx/DC Orders Clinical Impression: Contact dermatitis, Dyspnea Instructions: ED Contact Dermatitis Prescriptions: New ondansetron 4 mg tablet,disintegrating 4 mg PO Q8H PRN PRN (Reason: Nausea) Qty: 10 0RF triamcinolone acetonide 0.1 % ointment 1 applic topical BID PRN (Reason: rash) Qty: 30 0RF prednisone 20 mg tablet 20 mg PO .asdir Qty: 17 0RF Rx Instructions: 2 tabs daily for the next 5 days, then 1 tab daily for the next 7 days. No Action tramadol 50 MG tablet 50 mg PO Q6H PRN PRN (Reason: Pain 1-10 Or Fever) lorazepam 0.5 MG tablet 0.5 mg PO TID PRN PRN (Reason: Anxiety) metoprolol succinate 25 MG tablet extended release 24 hr 25 mg PO DAILY estradiol 1 mg tablet 1 mg PO DAILY budesonide 3 mg capsule,delayed,extend.release 9 mg PO DAILY Qty: 810 1RF Stand Alone Forms: ED Work / School Excuse Primary Care Provider: Robert Anderson Referrals: Emmanuel Eagle DO [Non-Staff] - 1-2 Weeks Activity Restrictions/Additional Instructions: Chest x-ray negative. Your history exam with a rash consistent with contact dermatitis. Take steroids as prescribed use topical cream as prescribed. May use Benadryl for severe itching up to 25 mg every 6 hours may cause drowsiness. Rash may not improved for 2 to 3 weeks. Print Language: Albanian Disposition Disposition: Home, Self Care
[2024-09-19 10:37] VITALS: BP 120/69; PULSE 62; RESP 14; TEMP 36.6; O2SAT 98
== END 2024-09-19 10:39 | disposition home or self-care (01) ==
PROVIDERS: Emergency Provider Emergency Medicine; PCP Family Medicine; Visit Provider Emergency Medicine
DX: L25.9 Unspecified contact dermatitis, unspecified cause (principal); R06.00 Dyspnea, unspecified
CPT/HCPCS: 71046; 99282

== ENCOUNTER 2025-02-16 08:38 | Outpatient (CLI) | payer SELFPAY ==
[2025-02-16 09:00] LABS: Hematocrit 38.4 % (37-47); Hemoglobin 12.4 g/dL (12.0-15.0); Immature Granulocytes Count 0.220 X10^3/uL (0.0-0.0); Mean Corp Hgb Conc 32.3 g/dL (32-36); Mean Corpuscular Volume 88.9 fL (81-99); Mean Platelet Vol. 9.0 fl (6.2-12.0); NRBC Flagged by Analyzer 0 % (0-5); POSITIVE DIFFERENTIAL YES; Platelet Count 327 K/mm3 (150-450); RBC Distribution Width CV 13.2 % (11.6-14.6); RBC Distribution Width SD 43.0 fl (35.1-43.9); Red Blood Count 4.32 M/mm3 (4.2-5.4); White Blood Count 12.6 K/mm3 (4.4-11.0)
[2025-02-16 09:12] LABS: Differential Indicated SCAN CRITERIA MET
[2025-02-16 09:26] LABS: AST(SGOT) 16 U/L (<=31); Alanine Aminotransfer ALT/SGPT 8 U/L (<=34); Albumin, Serum 3.8 g/dL (3.5-5.0); Alkaline Phosphatase 96 U/L (35-104); Anion Gap 8 (5-15); BUN 13 mg/dL (4-19); BUN/Creat Ratio 15.3 RATIO (10-20); CRP 10.20 mg/L (0.0-3.0); Calcium,Total 9.2 mg/dL (7.6-11.0); Carbon Dioxide 30.2 mmol/L (21.0-32.0); Chloride 102 mmol/L (98-108); Globulin 3.2 g/dL (2.2-4.2); Glucose 87 mg/dL (70-99); Potassium 3.7 mmol/L (3.3-5.1)
== END 2025-02-16 23:59 | disposition home or self-care (01) ==
PROVIDERS: PCP Family Medicine; Referring Provider Student in an Organized Health Care Education/Training Program; Visit Provider Student in an Organized Health Care Education/Training Program
DX: R19.7 Diarrhea, unspecified (principal)
CPT/HCPCS: 36591; 80053; 85025; 86140; A4216